=== PATIENT | female | born 1950 | race Caucasian/White ===

== ENCOUNTER 2018-12-27 17:55 | Inpatient (IN) ==
[2018-12-28] MEDS: Aspirin 81 MG TAB.CHEW PO SCH (09:15)
[2018-12-28] MEDS: Gabapentin 300 MG CAPSULE PO SCH ×3 (09:16→20:10)
[2018-12-28] MEDS: Isosorbide MONOnitrate (24 HR) 60 MG TAB.ER.24H PO SCH (09:16)
[2018-12-28] MEDS: Cholecalciferol (D-3) 1,000 UNIT TABLET PO SCH (09:17)
[2018-12-28] MEDS: Magnesium Oxide 400 MG TABLET PO SCH ×2 (09:17→20:10)
[2018-12-28] MEDS: Loratadine 10 MG TABLET PO PRN (09:17)
--- NOTE | 2018-12-28 15:31 | Internal Med History&Physical ---
Date of Encounter: 12/28/18 Time of Encounter: 14:55 Assessment and Plan (1) Coronary artery disease Current visit: No Status: Chronic Continue Lopressor, Plavix, aspirin, and Imdur. Qualifiers: Coronary Disease-Associated Artery/Lesion type: [place] artery [place] vs. transplanted heart: [place] heart Associated angina: angina presence unspecified Qualified Code(s): I25.10 - Atherosclerotic heart disease of [place] coronary artery without angina pectoris (2) Elevated brain natriuretic peptide (BNP) level Current visit: Yes Status: Acute Continue Lopressor and lisinopril. Low-dose Bumex will be added. (3) Hypertension Current visit: No Status: Chronic Continue lisinopril and Lopressor. Blood pressure will be monitored. Qualifiers: Hypertension type: essential hypertension Qualified Code(s): I10 - Essential (primary) hypertension (4) Anemia Current visit: No Status: Chronic Anemia testing will be done in a.m. Qualifiers: Anemia type: unspecified type Qualified Code(s): D64.9 - Anemia, unspecified Internal Medicine - H&P: HPI Chief complaint: Chest pain Admitted From: Hospital to Hospital Transfer Plans for Post Hospital Care: Home History of present illness: Ms. Kelly is a 68 year old female who was transferred to [facility] swing bed after an December 21 hospitalization at [facility] for chest pain. Her medications were adjusted and pain resolved. It was felt she would benefit from ongoing rehabilitation therapy and she was discharged to [facility] swing bed for ongoing care needs. Cardiovascular history is significant for hypertension. She has known ASHD status post SC January 2016. She had heart cath at [facility] 09/08/2018 showing LMCA free of disease, LAD free of disease with patent stent in the proximal LAD, 50% stenosis in the mid circumflex, 25% stenosis in the proximal RCA and 50% stenosis in the distal RCA. She reports 2 stents have been placed but the location a second stent was not documented in the cath report. Limited echocardiogram 12/22/2018 showed LVEF of 60%. Interventricular septum and posterior wall thickness measurements were 1.20 and 1.10 cm respectively. A previous echocardiogram 09/08/2018 showed the interventricular septum and posterior wall thickness measurements 1.20 and 1.40 cm respectively. The E/A ratio was 0.8. Valves were not well visualized. She has history of left leg DVT 20 years ago. She denies pulmonary embolus. She has predictable dyspnea on exertion. Past Med Surg Social Fam HX - Past Medical History Medical history: arthritis, cancer, coronary artery disease, DVT, fibromyalgia, GERD, hyperlipidemia, hypertension, kidney stones, malignancy, migraine, myocardial infarction, seizures Additional medical history: uturine cancer. Left leg DVT. fibromyalgia Psychiatric history: anxiety, depression, panic disorder, PTSD - Past Surgical History Surgical History: angioplasty/stent, cholecystectomy, hip replacement, other Additional surgical history: Left hip replacement right shoulder Surgery - Social History Smoking Status: Former smoker Smokeless Tobacco Status: No Alcohol use: none Drug use: none - Family History Mother Family Member Ethnicity: Non- Living Status: Unknown Hx Family Cardiac Disorders: Yes (SC, CAD) Hx Family Respiratory Disorders: Yes Hx Family Cancer: Yes (Breast CA, uterine CA) Hx Family GI Disorders: No Hx Family Endocrine Disorder: No Hx Family Neuromuscular Disorders: No Hx Family Neurologic Disorders: No Hx Family HEENT Disorders: No Hx Family Autoimmune Disorders: No Father Family Member Ethnicity: Non- Living Status: Unknown Hx Family Cardiac Disorders: Yes (SC, HD, CAD) Hx Family Respiratory Disorders: No Hx Family Cancer: No Hx Family GI Disorders: No Hx Family Endocrine Disorder: No Hx Family Neuromuscular Disorders: No Hx Family Neurologic Disorders: No Hx Family HEENT Disorders: No Hx Family Autoimmune Disorders: No Brother Family Member Ethnicity: Non- Living Status: Still Living Hx Family Cardiac Disorders: Yes (CAD) Internal Medicine - H&P: Meds Buspirone HCl [Buspar] 10 mg PO BID 09/08/18 [History] Cholecalciferol (D-3) [Vitamin D] 2,000 unit PO DAILY 09/08/18 [History] Clopidogrel [Plavix] 75 mg PO DAILY 09/08/18 [History] Gabapentin [Neurontin] 900 mg PO TID 09/08/18 [History] Memantine HCl 5 mg PO DAILY 09/08/18 [History] Aspirin 81 mg PO DAILY #30 tab.chew 09/09/18 [Rx] Atorvastatin Calcium [Lipitor] 40 mg PO HS 11/28/18 [History] Cetirizine HCl [24Hour Allergy] 5 mg PO DAILY PRN 11/28/18 [History] Escitalopram [Lexapro] 20 mg PO DAILY 11/28/18 [History] Lisinopril [Zestril] 5 mg PO DAILY 11/28/18 [History] Magnesium Oxide [Magnesium] 400 mg PO BID 11/28/18 [History] Metoprolol [Lopressor] 12.5 mg PO BID 11/28/18 [History] Pantoprazole Sodium [Protonix] 40 mg PO DAILY 12/23/18 [History] Acetaminophen w/Cod 300-30 mg [Tylenol w/Codeine #3] 1 tab PO TID PRN 4 Days #12 tablet 12/27/18 [Rx] Nitroglycerin 0.4 mg SL Q5M PRN #25 tab.subl 12/27/18 [Rx] Polyethylene Glycol 3350 [MiraLAX] 17 gm PO BID PRN powd.pack 12/27/18 [Rx] Allergy/AdvReac Type Severity Reaction Status Date / Time sumatriptan [From Imitrex] Allergy Swelling Verified 12/23/18 14:55 of Lip/Tongue/Throat venom-honey bee Allergy Swelling Verified 12/23/18 14:55 [bee venom (honey bee)] of Lip/Tongue/Throat morphine AdvReac Nausea Verified 12/23/18 14:55 All Systems PM: A 10-system review of systems was performed and is negative for pertinent findings except as documented above in the HPI. Review of systems: Gen.: She states her weight has been stable for several months Cardiovascular: As per history of present illness Respiratory: She smoked for approximately 3 years in early adulthood. She denies chronic lung disease and does not use home oxygen. She has not been tested for sleep apnea. GI: She has had cholecystectomy. She denies disorders of her liver or exocrine pancreas : She has history of multiple kidney stones with most recent one approximately February 2016. She denies other kidney or bladder disorders. Neurologic: She has history of migraine headaches. She denies large distribution strokes or seizures. Endocrine: She has history of hyperlipidemia. She denies diabetes or thyroid disease. Hematology/oncology: She has history of cervical cancer with curative hysterectomy several years ago. She denies other internal malignancies. She was unaware she has had anemia on most labs since November 2014. Psychiatric: She has anxiety, depression, and PTSD. [place]: She has fibromyalgia and DJD. 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 She denies gout or other bone joint or muscle disorders. - Constitutional Vitals: Temp Pulse Resp BP Pulse Ox 98.3 F 71 18 121/74 96 12/28/18 06:40 12/28/18 06:40 12/28/18 06:40 12/28/18 06:40 12/28/18 06:40 Exam: Gen.: She is a well-developed overweight female sitting in a chair at bedside who appears in no acute distress HEENT: Head is atraumatic and normocephalic. Eyes: EOMI. There is no scleral icterus. Mouth: Mucosa is moist. Neck: Supple and nontender. There is no thyromegaly or adenopathy noted. Heart: Regular without murmurs gallops or ectopics Lungs: No wheezes or crackles are heard. Abdomen: Soft and nontender. No masses or guarding are noted. Extremities: There is no cyanosis edema or clubbing noted. Dorsalis pedis and posterior tibial pulses are 1-2 over 2 bilaterally. Neurologic: Mental status: She is talkative and a good historian. Cranial nerves: Smile is symmetric. Forehead wrinkles bilaterally. Tongue protrudes midline. EOMI. Motor: There is no pronator drift. Cerebellar: Finger to nose is intact bilaterally. Skin: Warm and dry
[2018-12-29 05:25] LABS: Basophils % 0.5 %; Eosinophils # 0.2 K/mcL (0.0-0.6); Eosinophils % 2.7 %; Hemoglobin 10.7 g/dL (11.5-15.4); Immature Granulocytes % 0.5 % (0-4); Lymphocytes # 2.1 K/mcL (0.6-4.6); Lymphocytes % 33.3 %; Mean Corpuscular HGB Conc 30.6 g/dL (31.6-35.5); Mean Corpuscular Hemoglobin 28.7 pg (28.0-33.3); Mean Corpuscular Volume 93.8 fL (83.0-100.0); Mean Platelet Volume 10.4 fL (9.4-12.4); Monocytes # 0.5 K/mcL (0.0-1.3); Monocytes % 8.2 %; Neutrophils # 3.4 K/mcL (1.6-8.9); Platelet Count 246 K/mcL (140-400); Red Blood Count 3.73 M/mcL (3.82-4.97); Red Cell Distribution Width 14.2 % (11.5-14.5); Segmented Neutrophils % 54.8 %
[2018-12-29 05:44] LABS: BUN/Creatinine Ratio 28 (6-26); Blood Urea Nitrogen 26 mg/dL (8-23); Calcium 9.1 mg/dL (8.6-10.3); Carbon Dioxide 31 mEq/L (23-29); Chloride 103 mEq/L (98-107); Glucose 102 mg/dL (70-105); Osmolality,Calculated 293 (280-300); Sodium 139 mEq/L (136-145); eGFR For Non-African Americans > 60 (> 60)
[2018-12-29] MEDS: Isosorbide MONOnitrate (24 HR) 60 MG TAB.ER.24H PO SCH (08:24)
[2018-12-29] MEDS: Magnesium Oxide 400 MG TABLET PO SCH ×2 (08:24→20:26)
[2018-12-29] MEDS: Aspirin 81 MG TAB.CHEW PO SCH (08:24)
[2018-12-29] MEDS: Gabapentin 300 MG CAPSULE PO SCH ×3 (08:25→20:26)
[2018-12-29] MEDS: Cholecalciferol (D-3) 1,000 UNIT TABLET PO SCH (08:25)
[2018-12-29 09:24] LABS: % Iron Saturation 17 % (15-50); Iron 63 mcg/dL (50-170); Transferrin 261 mg/dL (203-362)
[2018-12-29 09:29] LABS: Ferritin 42 ng/mL (10-120)
--- NOTE | 2018-12-29 17:39 | Internal Med Progress Note ---
Date of Encounter: 12/29/18 Time of Encounter: 17:30 - Assessment and plan (1) Coronary artery disease Current Visit: No Status: Chronic Assessment and plan: December 29. Continue Lopressor, Plavix, aspirin, and Imdur. Qualifiers: Coronary Disease-Associated Artery/Lesion type: [place] artery [place] vs. transplanted heart: [place] heart Associated angina: angina presence unspecified Qualified Code(s): I25.10 - Atherosclerotic heart disease of [place] coronary artery without angina pectoris (2) Elevated brain natriuretic peptide (BNP) level Current Visit: Yes Status: Acute Assessment and plan: December 29. Continue Lopressor and lisinopril with low dose Bumex. (3) Hypertension Current Visit: No Status: Chronic Assessment and plan: December 29. Continue lisinopril and Lopressor. Qualifiers: Hypertension type: essential hypertension Qualified Code(s): I10 - Essential (primary) hypertension (4) Anemia Current Visit: No Status: Chronic Assessment and plan: December 29. Anemia testing showed iron 63, transferrin saturation 17%, transferrin 261, ferritin 42, B12 419, and folate 5.0. Hemoglobin has improved to 10.7. Continue to monitor. Qualifiers: Anemia type: unspecified type Qualified Code(s): D64.9 - Anemia, unspecified - Subjective Interval history: December 29. She has no new complaints and feels better. She states she had 2 therapy sessions today and became dyspneic with activity. - Constitutional Vitals: Temp Pulse Resp BP Pulse Ox 98.2 F 71 16 114/70 96 12/29/18 06:26 12/29/18 06:26 12/29/18 06:26 12/29/18 06:26 12/29/18 06:26 Exam: She is resting comfortably in bed and appears in no acute distress. Her affect is bright and cheerful. Extremities show no pitting edema. I reviewed her medications and lab results. Internal Medicine: Result - Labs CBC & Chem 7: 12/29/18 05:00 12/29/18 05:00 Labs: Short CBC 12/29/18 Range/Units 05:00 WBC 6.3 (4.3-11.1) K/mcL Hgb 10.7 L (11.5-15.4) g/dL Hct 35.0 L (35.3-44.9) % Plt Count 246 (140-400) K/mcL Neutrophils # 3.4 (1.6-8.9) K/mcL BMP 12/29/18 05:00 Sodium 139 Potassium 5.0 Chloride 103 Carbon Dioxide 31 H BUN 26 H Creatinine 0.92 Glucose 102 Calcium 9.1 Consult Discharge Plan - Plan Referrals: NONE,PCP [Primary Care Provider] - 1 week
[2018-12-29] MEDS: Bumetanide 1 MG TABLET PO SCH (17:58)
[2018-12-30] MEDS: Aspirin 81 MG TAB.CHEW PO SCH (09:22)
[2018-12-30] MEDS: Magnesium Oxide 400 MG TABLET PO SCH ×2 (09:22→20:43)
[2018-12-30] MEDS: Bumetanide 1 MG TABLET PO SCH (09:22)
[2018-12-30] MEDS: Isosorbide MONOnitrate (24 HR) 60 MG TAB.ER.24H PO SCH (09:22)
[2018-12-30] MEDS: Cholecalciferol (D-3) 1,000 UNIT TABLET PO SCH (09:23)
[2018-12-30] MEDS: Gabapentin 300 MG CAPSULE PO SCH ×3 (09:24→20:43)
[2018-12-30] MEDS: *HR* Acetaminophen w/Cod 300-30 mg 1 TAB TABLET PO PRN (17:46)
[2018-12-31] MEDS: *HR* Acetaminophen w/Cod 300-30 mg 1 TAB TABLET PO PRN ×2 (05:24→15:04)
[2018-12-31] MEDS: Gabapentin 300 MG CAPSULE PO SCH ×3 (08:41→20:13)
[2018-12-31] MEDS: Cholecalciferol (D-3) 1,000 UNIT TABLET PO SCH (08:41)
[2018-12-31] MEDS: Aspirin 81 MG TAB.CHEW PO SCH (08:42)
[2018-12-31] MEDS: Magnesium Oxide 400 MG TABLET PO SCH ×2 (08:42→20:13)
[2018-12-31] MEDS: Loratadine 10 MG TABLET PO PRN (08:43)
[2018-12-31] MEDS: Bumetanide 1 MG TABLET PO SCH (08:44)
[2018-12-31] MEDS: Isosorbide MONOnitrate (24 HR) 60 MG TAB.ER.24H PO SCH (08:45)
--- NOTE | 2018-12-31 12:42 | Internal Med Progress Note ---
Date of Encounter: 12/31/18 Time of Encounter: 12:35 - Assessment and plan (1) Coronary artery disease Current Visit: No Status: Chronic Assessment and plan: December 29. Continue Lopressor, Plavix, aspirin, and Imdur. Qualifiers: Coronary Disease-Associated Artery/Lesion type: [place] artery [place] vs. transplanted heart: [place] heart Associated angina: angina presence unspecified Qualified Code(s): I25.10 - Atherosclerotic heart disease of [place] coronary artery without angina pectoris (2) Elevated brain natriuretic peptide (BNP) level Current Visit: Yes Status: Acute Assessment and plan: December 29. Continue Lopressor and lisinopril with low dose Bumex. December 31. BN peptide was normal at 93 on 12/29/2018. Continue Lopressor, lisinopril, and Bumex (3) Hypertension Current Visit: No Status: Chronic Assessment and plan: December 29. Continue lisinopril and Lopressor. December 31. Blood pressure borderline low. Change metoprolol to Toprol-XL 12.5 mg daily. Qualifiers: Hypertension type: essential hypertension Qualified Code(s): I10 - Essential (primary) hypertension (4) Anemia Current Visit: No Status: Chronic Assessment and plan: December 29. Anemia testing showed iron 63, transferrin saturation 17%, transferrin 261, ferritin 42, B12 419, and folate 5.0. Hemoglobin has improved to 10.7. Continue to monitor. Qualifiers: Anemia type: unspecified type Qualified Code(s): D64.9 - Anemia, unspecified (5) Obesity Current Visit: No Status: Chronic Assessment and plan: December 31. She requested a visit by the dietitian. Qualifiers: Obesity type: due to excess calories Obesity classification: adult class 3 (BMI >= 40) Serious obesity comorbidity presence: with serious comorbidity Body mass index: BMI 45.0-49.9 Qualified Code(s): E66.01 - Morbid (severe) obesity due to excess calories; Z68.42 - Body mass index (BMI) 45.0-49.9, adult - Subjective Interval history: December 29. She has no new complaints and feels better. She states she had 2 therapy sessions today and became dyspneic with activity. December 31. She has no new complaints. - Constitutional Vitals: Temp Pulse Resp BP Pulse Ox 98.6 F 69 18 96/56 95 12/31/18 07:51 12/31/18 08:54 12/31/18 08:54 12/31/18 08:54 12/31/18 07:51 Exam: She is resting comfortably in bed and appears in no acute distress. Her affect is bright and cheerful. Extremities show no edema. I reviewed her medications and lab results. Internal Medicine: Result - Labs CBC & Chem 7: 12/29/18 05:00 12/29/18 05:00 Consult Discharge Plan - Plan Referrals: NONE,PCP [Primary Care Provider] - 1 week
[2019-01-01] MEDS: *HR* Acetaminophen w/Cod 300-30 mg 1 TAB TABLET PO PRN ×2 (05:15→14:29)
[2019-01-01] MEDS: Isosorbide MONOnitrate (24 HR) 60 MG TAB.ER.24H PO SCH (08:16)
[2019-01-01] MEDS: Magnesium Oxide 400 MG TABLET PO SCH ×2 (08:16→21:19)
[2019-01-01] MEDS: Aspirin 81 MG TAB.CHEW PO SCH (08:17)
[2019-01-01] MEDS: Bumetanide 1 MG TABLET PO SCH (08:17)
[2019-01-01] MEDS: Metoprolol XL (24 HR) Succ 25 MG TAB.ER.24H PO SCH (08:17)
[2019-01-01] MEDS: Gabapentin 300 MG CAPSULE PO SCH ×3 (08:18→21:19)
[2019-01-01] MEDS: Cholecalciferol (D-3) 1,000 UNIT TABLET PO SCH (08:18)
[2019-01-02] MEDS: *HR* Acetaminophen w/Cod 300-30 mg 1 TAB TABLET PO PRN ×2 (07:32→17:53)
[2019-01-02] MEDS: Bumetanide 1 MG TABLET PO SCH (08:47)
[2019-01-02] MEDS: Magnesium Oxide 400 MG TABLET PO SCH ×2 (08:47→21:13)
[2019-01-02] MEDS: Cholecalciferol (D-3) 1,000 UNIT TABLET PO SCH (08:47)
[2019-01-02] MEDS: Aspirin 81 MG TAB.CHEW PO SCH (08:48)
[2019-01-02] MEDS: Metoprolol XL (24 HR) Succ 25 MG TAB.ER.24H PO SCH (08:48)
[2019-01-02] MEDS: Gabapentin 300 MG CAPSULE PO SCH ×3 (08:48→21:13)
[2019-01-02] MEDS: Isosorbide MONOnitrate (24 HR) 60 MG TAB.ER.24H PO SCH (08:48)
[2019-01-03 05:56] LABS: Basophils % 0.5 %; Eosinophils # 0.2 K/mcL (0.0-0.6); Eosinophils % 2.4 %; Hematocrit 36.4 % (35.3-44.9); Hemoglobin 11.1 g/dL (11.5-15.4); Immature Granulocytes % 0.3 % (0-4); Lymphocytes # 2.1 K/mcL (0.6-4.6); Lymphocytes % 33.8 %; Mean Corpuscular HGB Conc 30.5 g/dL (31.6-35.5); Mean Corpuscular Hemoglobin 28.4 pg (28.0-33.3); Mean Corpuscular Volume 93.1 fL (83.0-100.0); Mean Platelet Volume 10.5 fL (9.4-12.4); Monocytes # 0.6 K/mcL (0.0-1.3); Monocytes % 8.7 %; Neutrophils # 3.5 K/mcL (1.6-8.9); Platelet Count 240 K/mcL (140-400); Red Blood Count 3.91 M/mcL (3.82-4.97); Red Cell Distribution Width 14.3 % (11.5-14.5); Segmented Neutrophils % 54.3 %
[2019-01-03 06:18] LABS: BUN/Creatinine Ratio 42 (6-26); Blood Urea Nitrogen 38 mg/dL (8-23); Carbon Dioxide 27 mEq/L (23-29); Chloride 106 mEq/L (98-107); Glucose 113 mg/dL (70-105); Magnesium 2.2 mg/dL (1.6-2.6); Osmolality,Calculated 300 (280-300); Potassium 4.4 mEq/L (3.5-5.1); Sodium 140 mEq/L (136-145); eGFR For Non-African Americans > 60 (> 60)
[2019-01-03] MEDS: Magnesium Oxide 400 MG TABLET PO SCH ×2 (08:30→20:24)
[2019-01-03] MEDS: Isosorbide MONOnitrate (24 HR) 60 MG TAB.ER.24H PO SCH (08:30)
[2019-01-03] MEDS: *HR* Acetaminophen w/Cod 300-30 mg 1 TAB TABLET PO PRN ×3 (08:30→20:24)
[2019-01-03] MEDS: Gabapentin 300 MG CAPSULE PO SCH ×3 (08:32→20:24)
[2019-01-03] MEDS: Metoprolol XL (24 HR) Succ 25 MG TAB.ER.24H PO SCH (08:32)
[2019-01-03] MEDS: Bumetanide 1 MG TABLET PO SCH (08:32)
[2019-01-03] MEDS: Aspirin 81 MG TAB.CHEW PO SCH (08:34)
[2019-01-03] MEDS: Cholecalciferol (D-3) 1,000 UNIT TABLET PO SCH (08:34)
[2019-01-03] MEDS ORDERED: MOM Conc 10 ML UD.LIQ PO PRN (14:06)
--- NOTE | 2019-01-03 15:38 | Internal Med Progress Note ---
Date of Encounter: 01/03/19 Time of Encounter: 15:30 - Assessment and plan (1) Coronary artery disease Current Visit: No Status: Chronic Assessment and plan: December 29. Continue Lopressor, Plavix, aspirin, and Imdur. Qualifiers: Coronary Disease-Associated Artery/Lesion type: [place] artery [place] vs. transplanted heart: [place] heart Associated angina: angina presence unspecified Qualified Code(s): I25.10 - Atherosclerotic heart disease of [place] coronary artery without angina pectoris (2) Elevated brain natriuretic peptide (BNP) level Current Visit: Yes Status: Acute Assessment and plan: December 29. Continue Lopressor and lisinopril with low dose Bumex. December 31. BN peptide was normal at 93 on 12/29/2018. Continue Lopressor, lisinopril, and Bumex (3) Hypertension Current Visit: No Status: Chronic Assessment and plan: December 29. Continue lisinopril and Lopressor. December 31. Blood pressure borderline low. Change metoprolol to Toprol-XL 12.5 mg daily. January 03. Blood pressure stable. Continue Toprol-XL 12.5 mg daily. Qualifiers: Hypertension type: essential hypertension Qualified Code(s): I10 - Essential (primary) hypertension (4) Anemia Current Visit: No Status: Chronic Assessment and plan: December 29. Anemia testing showed iron 63, transferrin saturation 17%, transferrin 261, ferritin 42, B12 419, and folate 5.0. Hemoglobin has improved to 10.7. Continue to monitor. January 03. Hemoglobin further increased to 11.1. Continue to monitor [place] odically. Qualifiers: Anemia type: unspecified type Qualified Code(s): D64.9 - Anemia, unspecified (5) Obesity Current Visit: No Status: Chronic Assessment and plan: December 31. She requested a visit by the dietitian. Qualifiers: Obesity type: due to excess calories Obesity classification: adult class 3 (BMI >= 40) Serious obesity comorbidity presence: with serious comorbidity Body mass index: BMI 45.0-49.9 Qualified Code(s): E66.01 - Morbid (severe) obesity due to excess calories; Z68.42 - Body mass index (BMI) 45.0-49.9, adult - Subjective Interval history: December 29. She has no new complaints and feels better. She states she had 2 therapy sessions today and became dyspneic with activity. December 31. She has no new complaints. January 03. She has no new complaints and feels she is making progress. - Constitutional Vitals: Temp Pulse Resp BP Pulse Ox 97.9 F 67 18 131/84 94 01/03/19 08:31 01/03/19 08:31 01/03/19 08:31 01/03/19 08:31 01/03/19 08:31 Exam: She is resting comfortably in bed and appears in no acute distress. Her affect is bright and cheerful. I reviewed her medications and lab results. Internal Medicine: Result - Labs CBC & Chem 7: 01/03/19 05:37 01/03/19 05:37 Labs: Short CBC 01/03/19 Range/Units 05:37 WBC 6.3 (4.3-11.1) K/mcL Hgb 11.1 L (11.5-15.4) g/dL Hct 36.4 (35.3-44.9) % Plt Count 240 (140-400) K/mcL Neutrophils # 3.5 (1.6-8.9) K/mcL BMP 01/03/19 05:37 Sodium 140 Potassium 4.4 Chloride 106 Carbon Dioxide 27 BUN 38 H Creatinine 0.90 Glucose 113 H Calcium 9.0 Consult Discharge Plan - Plan Referrals: NONE,PCP [Primary Care Provider] - 1 week
[2019-01-03] MEDS: Acetaminophen/Butalbital/CaffeineTABLET PO PRN (16:04)
[2019-01-04] MEDS: Cholecalciferol (D-3) 1,000 UNIT TABLET PO SCH (08:04)
[2019-01-04] MEDS: Gabapentin 300 MG CAPSULE PO SCH ×3 (08:05→21:30)
[2019-01-04] MEDS: Bumetanide 1 MG TABLET PO SCH (08:05)
[2019-01-04] MEDS: Aspirin 81 MG TAB.CHEW PO SCH (08:06)
[2019-01-04] MEDS: *HR* Acetaminophen w/Cod 300-30 mg 1 TAB TABLET PO PRN ×3 (08:06→21:31)
[2019-01-04] MEDS: Isosorbide MONOnitrate (24 HR) 60 MG TAB.ER.24H PO SCH (08:07)
[2019-01-04] MEDS: Magnesium Oxide 400 MG TABLET PO SCH ×2 (08:07→21:30)
[2019-01-04] MEDS: Loratadine 10 MG TABLET PO PRN (08:07)
[2019-01-04] MEDS: Metoprolol XL (24 HR) Succ 25 MG TAB.ER.24H PO SCH (08:07)
[2019-01-04] MEDS: Acetaminophen/Butalbital/CaffeineTABLET PO PRN ×2 (08:12→15:04)
[2019-01-04] MEDS: ALPRAZolam 0.25 MG TABLET PO PRN (16:29)
[2019-01-05] MEDS: *HR* Acetaminophen w/Cod 300-30 mg 1 TAB TABLET PO PRN ×3 (05:54→21:02)
[2019-01-05] MEDS: Acetaminophen/Butalbital/CaffeineTABLET PO PRN ×3 (05:54→21:01)
[2019-01-05] MEDS: ALPRAZolam 0.25 MG TABLET PO PRN ×3 (05:55→21:02)
[2019-01-05] MEDS: Isosorbide MONOnitrate (24 HR) 60 MG TAB.ER.24H PO SCH (09:55)
[2019-01-05] MEDS: Cholecalciferol (D-3) 1,000 UNIT TABLET PO SCH (09:55)
[2019-01-05] MEDS: Aspirin 81 MG TAB.CHEW PO SCH (09:55)
[2019-01-05] MEDS: Metoprolol XL (24 HR) Succ 25 MG TAB.ER.24H PO SCH (09:55)
[2019-01-05] MEDS: Gabapentin 300 MG CAPSULE PO SCH ×3 (09:56→21:02)
[2019-01-05] MEDS: Magnesium Oxide 400 MG TABLET PO SCH ×2 (09:56→21:02)
[2019-01-05] MEDS: Bumetanide 1 MG TABLET PO SCH (09:56)
[2019-01-06] MEDS: Gabapentin 300 MG CAPSULE PO SCH ×3 (08:44→20:39)
[2019-01-06] MEDS: Bumetanide 1 MG TABLET PO SCH (08:44)
[2019-01-06] MEDS: ALPRAZolam 0.25 MG TABLET PO PRN ×3 (08:44→21:59)
[2019-01-06] MEDS: Acetaminophen/Butalbital/CaffeineTABLET PO PRN ×3 (08:44→21:59)
[2019-01-06] MEDS: *HR* Acetaminophen w/Cod 300-30 mg 1 TAB TABLET PO PRN ×3 (08:45→21:59)
[2019-01-06] MEDS: Aspirin 81 MG TAB.CHEW PO SCH (08:45)
[2019-01-06] MEDS: Cholecalciferol (D-3) 1,000 UNIT TABLET PO SCH (08:45)
[2019-01-06] MEDS: Magnesium Oxide 400 MG TABLET PO SCH ×2 (08:45→20:40)
[2019-01-06] MEDS: Metoprolol XL (24 HR) Succ 25 MG TAB.ER.24H PO SCH (08:45)
[2019-01-06] MEDS: Isosorbide MONOnitrate (24 HR) 60 MG TAB.ER.24H PO SCH (08:45)
--- NOTE | 2019-01-06 15:25 | Internal Med Progress Note ---
Date of Encounter: 01/06/19 Time of Encounter: 15:18 - Assessment and plan (1) Coronary artery disease Current Visit: No Status: Chronic Assessment and plan: December 29. Continue Lopressor, Plavix, aspirin, and Imdur. Qualifiers: Coronary Disease-Associated Artery/Lesion type: [place] artery [place] vs. transplanted heart: [place] heart Associated angina: angina presence unspecified Qualified Code(s): I25.10 - Atherosclerotic heart disease of [place] coronary artery without angina pectoris (2) Elevated brain natriuretic peptide (BNP) level Current Visit: Yes Status: Acute Assessment and plan: December 29. Continue Lopressor and lisinopril with low dose Bumex. December 31. BN peptide was normal at 93 on 12/29/2018. Continue Lopressor, lisinopril, and Bumex (3) Hypertension Current Visit: No Status: Chronic Assessment and plan: December 29. Continue lisinopril and Lopressor. December 31. Blood pressure borderline low. Change metoprolol to Toprol-XL 12.5 mg daily. January 03. Blood pressure stable. Continue Toprol-XL 12.5 mg daily. Qualifiers: Hypertension type: essential hypertension Qualified Code(s): I10 - Essential (primary) hypertension (4) Anemia Current Visit: No Status: Chronic Assessment and plan: December 29. Anemia testing showed iron 63, transferrin saturation 17%, transferrin 261, ferritin 42, B12 419, and folate 5.0. Hemoglobin has improved to 10.7. Continue to monitor. January 03. Hemoglobin further increased to 11.1. Continue to monitor [place] odically. Qualifiers: Anemia type: unspecified type Qualified Code(s): D64.9 - Anemia, unspecified (5) Obesity Current Visit: No Status: Chronic Assessment and plan: December 31. She requested a visit by the dietitian. Qualifiers: Obesity type: due to excess calories Obesity classification: adult class 3 (BMI >= 40) Serious obesity comorbidity presence: with serious comorbidity Body mass index: BMI 45.0-49.9 Qualified Code(s): E66.01 - Morbid (severe) obesity due to excess calories; Z68.42 - Body mass index (BMI) 45.0-49.9, adult - Subjective Interval history: December 29. She has no new complaints and feels better. She states she had 2 therapy sessions today and became dyspneic with activity. December 31. She has no new complaints. January 03. She has no new complaints and feels she is making progress. January 06. She has no new complaints. - Constitutional Vitals: Temp Pulse Resp BP Pulse Ox 98.5 F 66 16 104/64 96 01/06/19 06:35 01/06/19 06:35 01/06/19 06:35 01/06/19 06:35 01/06/19 06:35 Exam: She is resting comfortably in bed and appears in no acute distress. Her affect is bright and cheerful. I reviewed her medications and lab results. Internal Medicine: Result - Labs CBC & Chem 7: 01/03/19 05:37 01/03/19 05:37 Consult Discharge Plan - Plan Referrals: NONE,PCP [Primary Care Provider] - 1 week
[2019-01-06] MEDS: Loratadine 10 MG TABLET PO PRN (16:49)
[2019-01-07] MEDS: ALPRAZolam 0.25 MG TABLET PO PRN ×3 (06:44→20:59)
[2019-01-07] MEDS: Acetaminophen/Butalbital/CaffeineTABLET PO PRN ×3 (06:45→20:59)
[2019-01-07] MEDS: Bumetanide 1 MG TABLET PO SCH (10:31)
[2019-01-07] MEDS: Gabapentin 300 MG CAPSULE PO SCH ×3 (10:31→20:59)
[2019-01-07] MEDS: Cholecalciferol (D-3) 1,000 UNIT TABLET PO SCH (10:31)
[2019-01-07] MEDS: Isosorbide MONOnitrate (24 HR) 60 MG TAB.ER.24H PO SCH (10:31)
[2019-01-07] MEDS: Metoprolol XL (24 HR) Succ 25 MG TAB.ER.24H PO SCH (10:32)
[2019-01-07] MEDS: Aspirin 81 MG TAB.CHEW PO SCH (10:32)
[2019-01-07] MEDS: Magnesium Oxide 400 MG TABLET PO SCH ×2 (10:32→20:59)
[2019-01-07] MEDS: *HR* Acetaminophen w/Cod 300-30 mg 1 TAB TABLET PO PRN ×2 (13:47→21:00)
[2019-01-08] MEDS: *HR* Acetaminophen w/Cod 300-30 mg 1 TAB TABLET PO PRN ×2 (09:14→21:40)
[2019-01-08] MEDS: ALPRAZolam 0.25 MG TABLET PO PRN ×2 (09:14→21:39)
[2019-01-08] MEDS: Metoprolol XL (24 HR) Succ 25 MG TAB.ER.24H PO SCH (09:15)
[2019-01-08] MEDS: Acetaminophen/Butalbital/CaffeineTABLET PO PRN ×2 (09:15→21:39)
[2019-01-08] MEDS: Bumetanide 1 MG TABLET PO SCH (09:16)
[2019-01-08] MEDS: Gabapentin 300 MG CAPSULE PO SCH ×3 (09:16→21:38)
[2019-01-08] MEDS: Aspirin 81 MG TAB.CHEW PO SCH (09:16)
[2019-01-08] MEDS: Magnesium Oxide 400 MG TABLET PO SCH ×2 (09:16→21:39)
[2019-01-08] MEDS: Isosorbide MONOnitrate (24 HR) 60 MG TAB.ER.24H PO SCH (09:16)
[2019-01-08] MEDS: Cholecalciferol (D-3) 1,000 UNIT TABLET PO SCH (09:17)
[2019-01-09] MEDS: Cholecalciferol (D-3) 1,000 UNIT TABLET PO SCH (08:21)
[2019-01-09] MEDS: ALPRAZolam 0.25 MG TABLET PO PRN ×3 (08:22→22:42)
[2019-01-09] MEDS: Magnesium Oxide 400 MG TABLET PO SCH ×2 (08:22→21:20)
[2019-01-09] MEDS: Gabapentin 300 MG CAPSULE PO SCH ×3 (08:22→21:19)
[2019-01-09] MEDS: Aspirin 81 MG TAB.CHEW PO SCH (08:23)
[2019-01-09] MEDS: Acetaminophen/Butalbital/CaffeineTABLET PO PRN ×2 (08:23→22:42)
[2019-01-09] MEDS: Isosorbide MONOnitrate (24 HR) 60 MG TAB.ER.24H PO SCH (08:24)
[2019-01-09] MEDS: Loratadine 10 MG TABLET PO PRN (08:24)
[2019-01-09] MEDS: *HR* Acetaminophen w/Cod 300-30 mg 1 TAB TABLET PO PRN ×3 (08:24→21:19)
[2019-01-09] MEDS: Bumetanide 1 MG TABLET PO SCH (08:25)
[2019-01-09] MEDS: Metoprolol XL (24 HR) Succ 25 MG TAB.ER.24H PO SCH (08:25)
--- NOTE | 2019-01-09 15:22 | Internal Med Progress Note ---
Date of Encounter: 01/09/19 Time of Encounter: 15:15 - Assessment and plan (1) Coronary artery disease Current Visit: No Status: Chronic Assessment and plan: December 29. Continue Lopressor, Plavix, aspirin, and Imdur. Qualifiers: Coronary Disease-Associated Artery/Lesion type: [place] artery [place] vs. transplanted heart: [place] Associated angina: angina presence unspecified Qualified Code(s): I25.10 - Atherosclerotic heart disease of [place] artery without angina pectoris (2) Elevated brain natriuretic peptide (BNP) level Current Visit: Yes Status: Acute Assessment and plan: December 29. Continue Lopressor and lisinopril with low dose Bumex. December 31. BN peptide was normal at 93 on 12/29/2018. Continue Lopressor, lisinopril, and Bumex January 09. Discontinue lisinopril due to borderline hypotension. Continue Lopressor and Bumex. (3) Hypertension Current Visit: No Status: Chronic Assessment and plan: December 29. Continue lisinopril and Lopressor. December 31. Blood pressure borderline low. Change metoprolol to Toprol-XL 12.5 mg daily. January 03. Blood pressure stable. Continue Toprol-XL 12.5 mg daily. January 09. Blood pressure borderline low. Continue Toprol. Discontinue lisinopril. Qualifiers: Hypertension type: essential hypertension Qualified Code(s): I10 - Essential (primary) hypertension (4) Anemia Current Visit: No Status: Chronic Assessment and plan: December 29. Anemia testing showed iron 63, transferrin saturation 17%, tra nsferrin 261, ferritin 42, B12 419, and folate 5.0. Hemoglobin has improved to 10.7. Continue to monitor. January 03. Hemoglobin further increased to 11.1. Continue to monitor periodically. Qualifiers: Anemia type: unspecified type Qualified Code(s): D64.9 - Anemia, unspecified (5) Obesity Current Visit: No Status: Chronic Assessment and plan: December 31. She requested a visit by the dietitian. Qualifiers: Obesity type: due to excess calories Obesity classification: adult class 3 (BMI >= 40) Serious obesity comorbidity presence: with serious comorbidity Body mass index: BMI 45.0-49.9 Qualified Code(s): E66.01 - Morbid (severe) obesity due to excess calories; Z68.42 - Body mass index (BMI) 45.0-49.9, adult - Subjective Interval history: December 29. She has no new complaints and feels better. She states she had 2 therapy sessions today and became dyspneic with activity. December 31. She has no new complaints. January 03. She has no new complaints and feels she is making progress. January 06. She has no new complaints. January 09. She has no new complaints. - Constitutional Vitals: Temp Pulse Resp BP Pulse Ox 97.7 F 66 16 97/50 96 01/09/19 06:36 01/09/19 06:36 01/09/19 06:36 01/09/19 06:36 01/09/19 06:36 Exam: She is sitting in the exercise gym and appears in no acute distress. Her affect is overall cheerful. I reviewed her medications and lab results. Internal Medicine: Result - Labs CBC & Chem 7: 01/03/19 05:37 01/03/19 05:37 Consult Discharge Plan - Plan Referrals: NONE,PCP [Primary Care Provider] - 1 week
[2019-01-09] MEDS ORDERED: Methyl Salicylate/Menthol 28 GM TUBE TP PRN (15:54)
[2019-01-10 06:24] LABS: Basophils % 0.5 %; Eosinophils # 0.2 K/mcL (0.0-0.6); Eosinophils % 3.8 %; Hematocrit 33.3 % (35.3-44.9); Hemoglobin 10.3 g/dL (11.5-15.4); Immature Granulocytes % 0.2 % (0-4); Lymphocytes # 2.8 K/mcL (0.6-4.6); Lymphocytes % 45.7 %; Mean Corpuscular HGB Conc 30.9 g/dL (31.6-35.5); Mean Corpuscular Hemoglobin 28.4 pg (28.0-33.3); Mean Corpuscular Volume 91.7 fL (83.0-100.0); Mean Platelet Volume 10.7 fL (9.4-12.4); Monocytes # 0.5 K/mcL (0.0-1.3); Monocytes % 7.7 %; Neutrophils # 2.6 K/mcL (1.6-8.9); Platelet Count 252 K/mcL (140-400); Red Blood Count 3.63 M/mcL (3.82-4.97); Red Cell Distribution Width 14.7 % (11.5-14.5); Segmented Neutrophils % 42.1 %
[2019-01-10 06:43] LABS: BUN/Creatinine Ratio 29 (6-26); Blood Urea Nitrogen 25 mg/dL (8-23); Calcium 8.8 mg/dL (8.6-10.3); Carbon Dioxide 27 mEq/L (23-29); Chloride 108 mEq/L (98-107); Glucose 97 mg/dL (70-105); Magnesium 2.2 mg/dL (1.6-2.6); Osmolality,Calculated 296 (280-300); Potassium 4.3 mEq/L (3.5-5.1); Sodium 141 mEq/L (136-145); eGFR For Non-African Americans > 60 (> 60)
[2019-01-10] MEDS: Acetaminophen/Butalbital/CaffeineTABLET PO PRN ×3 (08:23→22:04)
[2019-01-10] MEDS: Metoprolol XL (24 HR) Succ 25 MG TAB.ER.24H PO SCH (08:24)
[2019-01-10] MEDS: Magnesium Oxide 400 MG TABLET PO SCH ×2 (08:24→22:05)
[2019-01-10] MEDS: *HR* Acetaminophen w/Cod 300-30 mg 1 TAB TABLET PO PRN ×3 (08:24→18:20)
[2019-01-10] MEDS: Isosorbide MONOnitrate (24 HR) 60 MG TAB.ER.24H PO SCH (08:24)
[2019-01-10] MEDS: Bumetanide 1 MG TABLET PO SCH (08:24)
[2019-01-10] MEDS: Gabapentin 300 MG CAPSULE PO SCH ×3 (08:25→22:04)
[2019-01-10] MEDS: Cholecalciferol (D-3) 1,000 UNIT TABLET PO SCH (08:25)
[2019-01-10] MEDS: Aspirin 81 MG TAB.CHEW PO SCH (08:26)
[2019-01-10] MEDS ORDERED: Ondansetron ODT 4 MG TAB.RAPDIS SL PRN (09:49)
[2019-01-10] MEDS: ALPRAZolam 0.25 MG TABLET PO PRN ×2 (15:27→22:04)
[2019-01-11] MEDS: ALPRAZolam 0.25 MG TABLET PO PRN ×3 (09:07→21:01)
[2019-01-11] MEDS: Aspirin 81 MG TAB.CHEW PO SCH (09:08)
[2019-01-11] MEDS: Isosorbide MONOnitrate (24 HR) 60 MG TAB.ER.24H PO SCH (09:08)
[2019-01-11] MEDS: Bumetanide 1 MG TABLET PO SCH (09:08)
[2019-01-11] MEDS: *HR* Acetaminophen w/Cod 300-30 mg 1 TAB TABLET PO PRN ×3 (09:08→21:03)
[2019-01-11] MEDS: Magnesium Oxide 400 MG TABLET PO SCH ×2 (09:08→21:01)
[2019-01-11] MEDS: Acetaminophen/Butalbital/CaffeineTABLET PO PRN ×3 (09:08→21:01)
[2019-01-11] MEDS: Cholecalciferol (D-3) 1,000 UNIT TABLET PO SCH (09:09)
[2019-01-11] MEDS: Gabapentin 300 MG CAPSULE PO SCH ×3 (09:09→21:01)
[2019-01-11] MEDS: Metoprolol XL (24 HR) Succ 25 MG TAB.ER.24H PO SCH (09:10)
[2019-01-12 07:33] VITALS: BP 105/57
--- NOTE | 2019-01-12 09:11 | Discharge Summary ---
Date of Encounter: 01/12/19 Time of Encounter: 08:54 - Discharge Diagnosis (1) Coronary artery disease Priority: Primary Status: Chronic Qualifiers: Coronary Disease-Associated Artery/Lesion type: [place] artery [place] vs. transplanted heart: [place] heart Associated angina: angina presence unspecified Qualified Code(s): I25.10 - Atherosclerotic heart disease of [place] coronary artery without angina pectoris (2) Elevated brain natriuretic peptide (BNP) level Priority: Secondary Status: Acute (3) Hypertension Priority: Secondary Status: Chronic Qualifiers: Hypertension type: essential hypertension Qualified Code(s): I10 - Essential (primary) hypertension (4) Anemia Priority: Secondary Status: Chronic Qualifiers: Anemia type: unspecified type Qualified Code(s): D64.9 - Anemia, unspecified (5) Obesity Priority: Secondary Status: Chronic Qualifiers: Obesity type: due to excess calories Obesity classification: adult class 3 (BMI >= 40) Serious obesity comorbidity presence: with serious comorbidity Body mass index: BMI 45.0-49.9 Qualified Code(s): E66.01 - Morbid (severe) obesity due to excess calories; Z68.42 - Body mass index (BMI) 45.0-49.9, adult Hospital course: Ms. Kelly is a 68 year old female who was transferred to [facility] swing bed after an December [address] [facility] for chest pain. Her medications were adjusted and pain resolved. It was felt she would benefit from ongoing rehabilitation therapy and she was discharged to [facility] swing bed for ongoing care needs. Initial orders were written by the discharging physicians at [facility]. I saw her on December 28 and performed a swing bed history and physical. She was started on isosorbide. Lisinopril was discontinued because of hypotension. Metoprolol was changed to Toprol-XL 12.5 mg daily. Aspirin and Plavix were continued. She had no further chest pain after admission. Low dose Bumex was started and other medication doses were adjusted as per above. BN peptide decreased to 53 on 01/10/2019. She will continue this regimen at discharge. Anemia testing showed iron 63, transferrin saturation 17%, transferrin 261, ferritin 42, B12 419, and folate 5.0. She had weight loss diet instruction provided by the dietitian. On January 12 arrangements were complete for her to be discharged home. She will follow with her PCP at the [facility] residency clinic within 1 week. Outpatient therapy will continue. - Time Spent with Patient Total time spent providing and/or coordinating discharge services: - Discharge Medications Prescriptions: New Bumetanide [Bumex] 0.5 mg PO DAILY #15 tablet Isosorbide MONOnitrate (24 HR) [Imdur] 60 mg PO DAILY #30 tab.er.24h Memantine [Namenda] 5 mg PO DAILY #30 tablet Metoprolol XL (24 HR) Succ [Toprol XL] 12.5 mg PO DAILY #15 tab.er.24h Acetaminophen w/Cod 300-30 mg [Tylenol w/Codeine #3] 1 tab PO Q4H PRN 30 Days #120 tablet PRN Reason: Mild To Moderate Pain Continued Memantine HCl 5 mg PO DAILY Cholecalciferol (D-3) [Vitamin D] 2,000 unit PO DAILY Aspirin 81 mg PO DAILY #30 tab.chew Cetirizine HCl [24Hour Allergy] 5 mg PO DAILY PRN PRN Reason: Allergy Symptoms Buspirone HCl [Buspar] 10 mg PO BID #60 tablet Escitalopram [Lexapro] 20 mg PO DAILY #30 tablet Atorvastatin Calcium [Lipitor] 40 mg PO HS #15 Magnesium Oxide [Magnesium] 400 mg PO BID #60 tablet Polyethylene Glycol 3350 [MiraLAX] 17 gm PO BID PRN 30 Days powd.pack PRN Reason: Constipation Gabapentin [Neurontin] 900 mg PO TID 30 Days #270 capsule Nitroglycerin 0.4 mg SL Q5M PRN #25 tab.subl PRN Reason: Chest Pain Clopidogrel [Plavix] 75 mg PO DAILY #30 tablet Changed Pantoprazole Sodium [Protonix] 40 mg PO DAILY PRN #30 PRN Reason: Dyspepsia Discontinued Lisinopril [Zestril] 5 mg PO DAILY Metoprolol [Lopressor] 12.5 mg PO BID Home Medications: Cholecalciferol (D-3) [Vitamin D] 2,000 unit PO DAILY 09/08/18 [History] Memantine HCl 5 mg PO DAILY 09/08/18 [History] Aspirin 81 mg PO DAILY #30 tab.chew 09/09/18 [Rx] Cetirizine HCl [24Hour Allergy] 5 mg PO DAILY PRN 11/28/18 [History] Acetaminophen w/Cod 300-30 mg [Tylenol w/Codeine #3] 1 tab PO Q4H PRN 30 Days #120 tablet 01/12/19 [Rx] Atorvastatin Calcium [Lipitor] 40 mg PO HS #15 01/12/19 [Rx] Bumetanide [Bumex] 0.5 mg PO DAILY #15 tablet 01/12/19 [Rx] Buspirone HCl [Buspar] 10 mg PO BID #60 tablet 01/12/19 [Rx] Clopidogrel [Plavix] 75 mg PO DAILY #30 tablet 01/12/19 [Rx] Escitalopram [Lexapro] 20 mg PO DAILY #30 tablet 01/12/19 [Rx] Gabapentin [Neurontin] 900 mg PO TID 30 Days #270 capsule 01/12/19 [Rx] Isosorbide MONOnitrate (24 HR) [Imdur] 60 mg PO DAILY #30 tab.er.24h 01/12/19 [Rx] Magnesium Oxide [Magnesium] 400 mg PO BID #60 tablet 01/12/19 [Rx] Memantine [Namenda] 5 mg PO DAILY #30 tablet 01/12/19 [Rx] Metoprolol XL (24 HR) Succ [Toprol XL] 12.5 mg PO DAILY #15 tab.er.24h 01/12/19 [Rx] Nitroglycerin 0.4 mg SL Q5M PRN #25 tab.subl 01/12/19 [Rx] Pantoprazole Sodium [Protonix] 40 mg PO DAILY PRN #30 01/12/19 [Rx] Polyethylene Glycol 3350 [MiraLAX] 17 gm PO BID PRN 30 Days powd.pack 01/12/19 [Rx] Allergies/Adverse Reactions: Allergy/AdvReac Type Severity Reaction Status Date / Time sumatriptan [From Imitrex] Allergy Swelling Verified 12/23/18 14:55 of Lip/Tongue/Throat venom-honey bee Allergy Swelling Verified 12/23/18 14:55 [bee venom (honey bee)] of Lip/Tongue/Throat morphine AdvReac Nausea Verified 12/23/18 14:55 Date of admission: 12/27/18 20:40 Primary care physician: PCP NONE Consults: 12/27/18 20:59 Consult to Occupational Therapy [CONS] Routine Comment: Evaluate, develop and implement POC Reason for Consult: Evaluate and treat new swing bed Does patient have active BEDREST order?: No Is patient medically & hemodynamically stable?: Yes Patient assessed for mobility or mobilized this visit?: Yes Consult to Physical Therapy [CONS] Routine Comment: Evaluate, develop and implement POC Reason for Consult: Evaluate and treat new swing bed Does patient have active BEDREST order?: No Is patient medically & hemodynamically stable?: Yes Patient assessed for mobility or mobilized this visit?: Yes 12/31/18 12:44 consult to reservations and ticketing agent [Consult to Nutrition] [CONS] Routine Comment: obesity Consulting Provider: NUTRITION Reason for Dietary Consult: Diet Education - Constitutional Vitals: Temp Pulse Resp BP Pulse Ox 98.2 F 77 17 105/57 95 01/12/19 07:32 01/12/19 07:32 01/12/19 07:32 01/12/19 07:32 01/12/19 07:32 - Patient Status Disposition: Home, Self-Care - Discharge Instructions Follow Up With: NONE,PCP [Primary Care Provider] - 1 week - Diet and Activity Activity: resume usual activities as tolerated Diet: low fat, low cholesterol
[2019-01-12] MEDS: Aspirin 81 MG TAB.CHEW PO SCH (09:40)
[2019-01-12] MEDS: Gabapentin 300 MG CAPSULE PO SCH (09:40)
[2019-01-12] MEDS: Bumetanide 1 MG TABLET PO SCH (09:40)
[2019-01-12] MEDS: *HR* Acetaminophen w/Cod 300-30 mg 1 TAB TABLET PO PRN (09:41)
[2019-01-12] MEDS: Acetaminophen/Butalbital/CaffeineTABLET PO PRN (09:41)
[2019-01-12] MEDS: Cholecalciferol (D-3) 1,000 UNIT TABLET PO SCH (09:41)
[2019-01-12] MEDS: Metoprolol XL (24 HR) Succ 25 MG TAB.ER.24H PO SCH (09:41)
[2019-01-12] MEDS: ALPRAZolam 0.25 MG TABLET PO PRN (09:41)
[2019-01-12] MEDS: Isosorbide MONOnitrate (24 HR) 60 MG TAB.ER.24H PO SCH (09:42)
[2019-01-12] MEDS: Magnesium Oxide 400 MG TABLET PO SCH (09:42)
== END 2019-01-12 15:56 | disposition home or self-care (01) | DRG 303 ==
LOC: INPPIK 20:40
PROVIDERS: ADMIT Internal Medicine; ATTEND Internal Medicine

== ENCOUNTER 2019-03-03 10:21 | Inpatient (IN) ==
[2019-03-03] MEDS: Gabapentin 300 MG CAPSULE PO SCH ×2 (16:47→20:40)
[2019-03-03] MEDS: Magnesium Oxide 400 MG TABLET PO SCH (20:40)
[2019-03-03] MEDS: *HR* Acetaminophen w/Cod 300-30 mg 1 TAB TABLET PO PRN (20:40)
[2019-03-04] MEDS: *HR* Acetaminophen w/Cod 300-30 mg 1 TAB TABLET PO PRN ×3 (05:22→13:50)
[2019-03-04 05:39] LABS: Basophils % 0.6 %; Eosinophils # 0.2 K/mcL (0.0-0.6); Eosinophils % 3.5 %; Hematocrit 34.3 % (35.3-44.9); Hemoglobin 10.8 g/dL (11.5-15.4); Immature Granulocytes % 0.3 % (0-4); Lymphocytes # 2.6 K/mcL (0.6-4.6); Lymphocytes % 37.1 %; Mean Corpuscular HGB Conc 31.5 g/dL (31.6-35.5); Mean Corpuscular Hemoglobin 28.6 pg (28.0-33.3); Mean Platelet Volume 10.4 fL (9.4-12.4); Monocytes # 0.4 K/mcL (0.0-1.3); Monocytes % 6.1 %; Neutrophils # 3.6 K/mcL (1.6-8.9); Platelet Count 225 K/mcL (140-400); Red Blood Count 3.77 M/mcL (3.82-4.97); Red Cell Distribution Width 13.6 % (11.5-14.5); Segmented Neutrophils % 52.4 %; White Blood Count 6.9 K/mcL (4.3-11.1)
[2019-03-04 05:56] LABS: BUN/Creatinine Ratio 22 (6-26); Blood Urea Nitrogen 18 mg/dL (8-23); Calcium 8.8 mg/dL (8.6-10.3); Carbon Dioxide 27 mEq/L (23-29); Chloride 107 mEq/L (98-107); Glucose 111 mg/dL (70-105); Osmolality,Calculated 293 (280-300); Potassium 4.2 mEq/L (3.5-5.1); Sodium 140 mEq/L (136-145); eGFR For African Americans > 60 (> 60); eGFR For Non-African Americans > 60 (> 60)
[2019-03-04] MEDS ORDERED: Loratadine 10 MG TABLET PO SCH (09:00)
[2019-03-04] MEDS: Magnesium Oxide 400 MG TABLET PO SCH ×2 (09:17→21:12)
[2019-03-04] MEDS: Gabapentin 300 MG CAPSULE PO SCH ×3 (09:17→21:12)
[2019-03-04] MEDS: Cholecalciferol (D-3) 1,000 UNIT (25MCG) TABLET PO SCH (09:17)
[2019-03-04] MEDS: Metoprolol XL (24 HR) Succ 25 MG TAB.ER.24H PO SCH (09:17)
[2019-03-04] MEDS: Aspirin Enteric Coated 81 MG Tablet PO SCH (09:17)
[2019-03-04] MEDS: Isosorbide MONOnitrate (24 HR) 60 MG TAB.ER.24H PO SCH (09:18)
[2019-03-04] MEDS: ALPRAZolam 0.25 MG TABLET PO PRN (16:09)
--- NOTE | 2019-03-04 20:02 | Internal Med History&Physical ---
Date of Encounter: 03/04/19 Time of Encounter: 19:30 Assessment and Plan (1) Near syncope Current visit: No Status: Acute Etiology undetermined. Orthostatic vital signs will be checked in a.m. Further workup will be done as needed. (2) Hypertension Current visit: No Status: Chronic Continue Toprol-XL. Qualifiers: Hypertension type: essential hypertension Qualified Code(s): I10 - Essential (primary) hypertension (3) Anemia Current visit: No Status: Chronic Check anemia testing in a.m. Qualifiers: Anemia type: unspecified type Qualified Code(s): D64.9 - Anemia, unspecified (4) Headache Current visit: No Status: Acute Posttraumatic. Tylenol 3 will be discontinued and she will be given Percocet as needed. Qualifiers: Headache type: unspecified Headache chronicity pattern: acute headache Intractability: intractable Qualified Code(s): R51 - Headache Internal Medicine - H&P: HPI Chief complaint: Near syncope with fall Admitted From: Hospital to Hospital Transfer Plans for Post Hospital Care: Home History of present illness: Ms. Kelly is a 68 year old female who was discharged to [facility] swing bed March 03 following a February 27 [facility] stay for near syncope. She had been hospitalized February 24- with similar symptoms resulting in a fall and facial trauma without fracture. Extensive evaluations were done including brain MRI, heart catheter, echocardiogram, and carotid Doppler studies. The etiology of the near syncope was not determined. She was discharged to [facility] swing bed rehabilitation therapy prior to returning to independent living. Past Med Surg Social Fam HX - Past Medical History Medical history: arthritis, cancer, coronary artery disease, DVT, fibromyalgia, GERD, hyperlipidemia, hypertension, kidney stones, malignancy, migraine, myocardial infarction, seizures Additional medical history: uturine cancer. Left leg DVT. fibromyalgia Psychiatric history: anxiety, depression, panic disorder, PTSD - Past Surgical History Surgical History: angioplasty/stent, cholecystectomy, hip replacement, other Additional surgical history: Left hip replacement. right shoulder Surgery - Social History Smoking Status: Never smoker Smokeless Tobacco Status: No Alcohol use: none Drug use: none - Family History Mother Family Member Ethnicity: Non- Living Status: Still Living Hx Family Cardiac Disorders: Yes (ME) Hx Family Respiratory Disorders: Yes Hx Family Cancer: Yes ("female") Hx Family GI Disorders: No Hx Family Endocrine Disorder: No Hx Family Neuromuscular Disorders: No Hx Family Neurologic Disorders: No Hx Family HEENT Disorders: No Hx Family Autoimmune Disorders: No Father Family Member Ethnicity: Non- Living Status: Unknown Hx Family Cardiac Disorders: Yes (ME) Hx Family Respiratory Disorders: No Hx Family Cancer: No Hx Family GI Disorders: No Hx Family Endocrine Disorder: No Hx Family Neuromuscular Disorders: No Hx Family Neurologic Disorders: No Hx Family HEENT Disorders: No Hx Family Autoimmune Disorders: No Brother Family Member Ethnicity: Non- Living Status: Still Living Hx Family Cardiac Disorders: Yes (CAD) Internal Medicine - H&P: Meds Cholecalciferol (D-3) [Vitamin D] 1,000 unit PO QAM 09/08/18 [History] Cetirizine HCl [24Hour Allergy] 10 mg PO QAM 11/28/18 [History] Atorvastatin Calcium [Lipitor] 40 mg PO HS #15 01/12/19 [Rx] Buspirone HCl [Buspar] 10 mg PO BID #60 tablet 01/12/19 [Rx] Clopidogrel [Plavix] 75 mg PO DAILY #30 tablet 01/12/19 [Rx] Escitalopram [Lexapro] 20 mg PO DAILY #30 tablet 01/12/19 [Rx] Isosorbide MONOnitrate (24 HR) [Imdur] 60 mg PO DAILY #30 tab.er.24h 01/12/19 [Rx] Magnesium Oxide [Magnesium] 400 mg PO BID #60 tablet 01/12/19 [Rx] Memantine [Namenda] 5 mg PO DAILY #30 tablet 01/12/19 [Rx] Nitroglycerin 0.4 mg SL Q5M PRN #25 tab.subl 01/12/19 [Rx] Acetaminophen w/Cod 300-30 mg [Tylenol w/Codeine #3] 1 tab PO Q4H PRN 02/24/19 [History] Gabapentin [Neurontin] 900 mg PO TID 02/24/19 [History] Aspirin [Adult Aspirin Regimen] 81 mg PO DAILY 02/26/19 [History] Metoprolol XL (24 HR) Succ [Toprol Xl] 25 mg PO DAILY 02/26/19 [History] Pantoprazole Sodium 40 mg PO QAM 02/26/19 [History] Allergy/AdvReac Type Severity Reaction Status Date / Time sumatriptan [From Imitrex] Allergy Swelling Verified 02/28/19 00:45 of Lip/Tongue/Throat venom-honey bee Allergy Swelling Verified 02/28/19 00:45 [bee venom (honey bee)] of Lip/Tongue/Throat morphine AdvReac Nausea Verified 02/28/19 00:45 All Systems PM: A 10-system review of systems was performed and is negative for pertinent findings except as documented above in the HPI. Review of systems: Review of systems from her December 2018 [facility] swing bed stay were reviewed and revised as below. Gen.: Her weight has decreased from 135.6 kg on 12/29/2018 to 129.075 kg now. Cardiovascular: She has history of hypertension. She has known ASHD status post ME January 2016. She had heart cath at [facility] 02/24/2019 showing LMCA free of d isease, LAD with 20% in-stent restenosis in the proximal LAD and 25% stenosis in the mid LAD, 30% stenosis in the proximal circumflex and 50% stenosis in the mid circumflex, 30 % stenosis in the proximal RCA, 20% in-stent restenosis in the mid RCA and 30% stenosis in the distal RCA. Echocardiogram 02/25/2019 showed LVEF of 55%. No significant valvular abnormalities were seen. The interventricular septum and posterior wall thickness measurements were 1.32 and 1.05 cm respectively. E/A ratio was 1.2. She has history of left leg DVT approximately 20 years ago. She denies pulmonary embolus. She has predictable dyspnea on exertion. Carotid Doppler 02/28/2019 showed unremarkable right car otid system and left distal ICA with moderate 40-59% stenosis. Respiratory: She smoked for approximately 3 years in early adulthood. She denies chronic lung disease and does not use home oxygen. She has not been tested for sleep apnea. GI: She has had cholecystectomy. She denies disorders of her liver or exocrine pancreas : She has history of multiple kidney stones with most recent one approximately February 2016. She denies other kidney or bladder disorders. Neurologic: She has history of migraine headaches. She denies large distribution strokes or seizures. Endocrine: She has history of hyperlipidemia. She denies diabetes or thyroid disease. Hematology/oncology: She has history of cervical cancer with curative hysterectomy several years ago. She denies other internal malignancies. She has had anemia on most labs since November 2014. Psychiatric: She has anxiety, depression, and PTSD. [place] skeletal: She has fibromyalgia and DJD. She had left total hip replacement and right total shoulder replacement in 2015. She denies gout or other bone joint or muscle disorders except pain in her left shoulder following her recent fall. - Constitutional Vitals: Temp Pulse Resp BP Pulse Ox 98.4 F 67 17 100/60 95 03/04/19 18:57 03/04/19 18:57 03/04/19 18:57 03/04/19 18:57 03/04/19 18:57 Exam: Gen.: She is a well-developed obese female lying in bed who appears in no acute distress HEENT: She has ecchymosis on her left bilateral maxilla and periorbital area from recent fall. Eyes: EOMI. There is no scleral icterus. Mouth: Mucosa is moist. Neck: Supple and nontender. There is no thyromegaly or adenopathy noted. Heart: Regular without murmurs gallops or ectopics Lungs: No wheezes or crackles are heard. Abdomen: Soft and nontender. No masses or guarding are noted. Extremities: There is no cyanosis edema or clubbing noted. Dorsalis pedis and posterior tibial pulses are trace to 1+ palpable bilaterally. She has pain on movement of her left shoulder. No obvious effusion is palpated. There is no discoloration of the shoulder or surrounding skin. Neurologic: Mental status: She is talkative and a good historian. Cranial nerves: Smile is symmetric. Forehead wrinkles bilaterally. Tongue protrudes midline. EOMI. Motor: There is no pronator drift. Cerebellar: Finger to nose is intact bilaterally. Skin: Warm and dry Internal Med - H&P Results - Labs CBC & Chem 7: 03/04/19 05:13 03/04/19 05:13 Labs: Short CBC 03/04/19 Range/Units 05:13 WBC 6.9 (4.3-11.1) K/mcL Hgb 10.8 L (11.5-15.4) g/dL Hct 34.3 L (35.3-44.9) % Plt Count 225 (140-400) K/mcL Neutrophils # 3.6 (1.6-8.9) K/mcL BMP 03/04/19 05:13 Sodium 140 Potassium 4.2 Chloride 107 Carbon Dioxide 27 BUN 18 Creatinine 0.81 Glucose 111 H Calcium 8.8
[2019-03-04] MEDS: *HR* OxyCODONE/APAP 5/325 TABLET PO PRN (21:12)
[2019-03-05] MEDS: *HR* OxyCODONE/APAP 5/325 TABLET PO PRN ×4 (05:14→22:09)
[2019-03-05] MEDS: ALPRAZolam 0.25 MG TABLET PO PRN ×3 (05:16→22:09)
[2019-03-05] MEDS: Aspirin Enteric Coated 81 MG Tablet PO SCH (08:49)
[2019-03-05] MEDS: Metoprolol XL (24 HR) Succ 25 MG TAB.ER.24H PO SCH (08:49)
[2019-03-05] MEDS: Magnesium Oxide 400 MG TABLET PO SCH ×2 (08:50→22:05)
[2019-03-05] MEDS: Gabapentin 300 MG CAPSULE PO SCH ×3 (08:50→22:05)
[2019-03-05] MEDS: Cholecalciferol (D-3) 1,000 UNIT (25MCG) TABLET PO SCH (08:50)
[2019-03-05] MEDS: Isosorbide MONOnitrate (24 HR) 60 MG TAB.ER.24H PO SCH (08:50)
[2019-03-05] MEDS ORDERED: ALPRAZolam 0.25 MG TABLET PO STA (09:08)
[2019-03-05 09:20] LABS: Magnesium 1.9 mg/dL (1.6-2.6); Phosphorous 3.3 mg/dL (2.7-4.5)
[2019-03-05 10:03] LABS: Folate 4.9 ng/mL (3.0-16.0)
--- NOTE | 2019-03-05 18:36 | Internal Med Progress Note ---
Date of Encounter: 03/05/19 Time of Encounter: 18:27 - Assessment and plan (1) Near syncope Current Visit: No Status: Acute Assessment and plan: March 05. Etiology undetermined. Orthostatic vital signs not yet recorded. Continue to monitor. (2) Hypertension Current Visit: No Status: Chronic Assessment and plan: March 05. Continue Toprol-XL. Qualifiers: Hypertension type: essential hypertension Qualified Code(s): I10 - Essential (primary) hypertension (3) Anemia Current Visit: No Status: Chronic Assessment and plan: March 05. Anemia testing showed iron 38, transferrin saturation 11%, transferrin 258, ferritin 13, B12 400, and folate 4.9. Start ferrous sulfate with ascorbic acid in a.m. Qualifiers: Anemia type: unspecified type Qualified Code(s): D64.9 - Anemia, unspecified (4) Headache Current Visit: No Status: Acute Assessment and plan: March 05. Posttraumatic. Continue Percocet as needed. Qualifiers: Headache type: unspecified Headache chronicity pattern: acute headache Intractability: intractable Qualified Code(s): R51 - Headache (5) Left shoulder pain Current Visit: Yes Status: Acute Assessment and plan: March 05. MRI showed no fracture or rotator cuff injury. Will refer to [facility] for further evaluation Qualifiers: Chronicity: acute Qualified Code(s): M25.512 - Pain in left shoulder - Subjective Interval history: March 05. She has no new complaints. She reports her headache and shoulder pain have lessened. - Constitutional Vitals: Temp Pulse Resp BP Pulse Ox 98.8 F 70 16 114/68 94 03/05/19 07:49 03/05/19 07:49 03/05/19 07:49 03/05/19 07:49 03/05/19 07:49 Exam: She is lying in bed and appears in no severe distress. Her affect is overall cheerful. I reviewed her medications and lab results. I discussed her MRI report. Internal Medicine: Result - Labs CBC & Chem 7: 03/04/19 05:13 03/04/19 05:13 - Impressions Impressions Shoulder MRI 03/05/19 16:14 IMPRESSION: 1. No acute osseous abnormality or rotator cuff tear. 2. Severe glenohumeral degenerative changes. 3. Mild acromioclavicular degenerative changes. D/ / Gary Peterson MD / Gary Peterson MD Interpreting Provider: Gary Peterson MD Consult Discharge Plan - Plan Referrals: NONE,PCP [Primary Care Provider] - 1 week
[2019-03-06] MEDS: Ascorbic Acid 500 MG TABLET PO SCH (06:34)
[2019-03-06] MEDS: ALPRAZolam 0.25 MG TABLET PO PRN ×3 (06:39→22:04)
[2019-03-06] MEDS: *HR* OxyCODONE/APAP 5/325 TABLET PO PRN ×3 (06:39→22:03)
[2019-03-06] MEDS: Gabapentin 300 MG CAPSULE PO SCH ×3 (09:22→22:03)
[2019-03-06] MEDS: Metoprolol XL (24 HR) Succ 25 MG TAB.ER.24H PO SCH (09:22)
[2019-03-06] MEDS: Magnesium Oxide 400 MG TABLET PO SCH ×2 (09:23→22:04)
[2019-03-06] MEDS: Aspirin Enteric Coated 81 MG Tablet PO SCH (09:23)
[2019-03-06] MEDS: Isosorbide MONOnitrate (24 HR) 60 MG TAB.ER.24H PO SCH (09:23)
[2019-03-06] MEDS: Cholecalciferol (D-3) 1,000 UNIT (25MCG) TABLET PO SCH (09:23)
[2019-03-07] MEDS: Ascorbic Acid 500 MG TABLET PO SCH (06:21)
[2019-03-07] MEDS: *HR* OxyCODONE/APAP 5/325 TABLET PO PRN ×3 (06:21→21:54)
[2019-03-07] MEDS: ALPRAZolam 0.25 MG TABLET PO PRN ×3 (06:21→21:53)
[2019-03-07] MEDS: Aspirin Enteric Coated 81 MG Tablet PO SCH (08:44)
[2019-03-07] MEDS: Magnesium Oxide 400 MG TABLET PO SCH ×2 (08:44→21:53)
[2019-03-07] MEDS: Isosorbide MONOnitrate (24 HR) 60 MG TAB.ER.24H PO SCH (08:44)
[2019-03-07] MEDS: Cholecalciferol (D-3) 1,000 UNIT (25MCG) TABLET PO SCH (08:45)
[2019-03-07] MEDS: Metoprolol XL (24 HR) Succ 25 MG TAB.ER.24H PO SCH (08:45)
[2019-03-07] MEDS: Gabapentin 300 MG CAPSULE PO SCH ×3 (08:45→21:53)
[2019-03-07] MEDS: Albuterol 2.5 MG/3 ML NEBULIZER IH PRN (11:26)
[2019-03-08] MEDS: ALPRAZolam 0.25 MG TABLET PO PRN ×3 (06:04→20:51)
[2019-03-08] MEDS: Ascorbic Acid 500 MG TABLET PO SCH (06:04)
[2019-03-08] MEDS: *HR* OxyCODONE/APAP 5/325 TABLET PO PRN ×4 (06:05→20:52)
[2019-03-08] MEDS: Albuterol 2.5 MG/3 ML NEBULIZER IH PRN ×2 (07:35→22:06)
[2019-03-08] MEDS: Isosorbide MONOnitrate (24 HR) 60 MG TAB.ER.24H PO SCH (10:01)
[2019-03-08] MEDS: Magnesium Oxide 400 MG TABLET PO SCH ×2 (10:01→20:52)
[2019-03-08] MEDS: Metoprolol XL (24 HR) Succ 25 MG TAB.ER.24H PO SCH (10:02)
[2019-03-08] MEDS: Gabapentin 300 MG CAPSULE PO SCH ×3 (10:02→20:51)
[2019-03-08] MEDS: Cholecalciferol (D-3) 1,000 UNIT (25MCG) TABLET PO SCH (10:02)
[2019-03-08] MEDS: Aspirin Enteric Coated 81 MG Tablet PO SCH (10:02)
--- NOTE | 2019-03-08 16:04 | Internal Med Progress Note ---
Date of Encounter: 03/08/19 Time of Encounter: 15:40 - Assessment and plan (1) Near syncope Current Visit: No Status: Acute Assessment and plan: March 05. Etiology undetermined. Orthostatic vital signs not yet recorded. Continue to monitor. (2) Hypertension Current Visit: No Status: Chronic Assessment and plan: March 05. Continue Toprol-XL. Qualifiers: Hypertension type: essential hypertension Qualified Code(s): I10 - Essential (primary) hypertension (3) Anemia Current Visit: No Status: Chronic Assessment and plan: March 05. Anemia testing showed iron 38, transferrin saturation 11%, transferrin 258, ferritin 13, B12 400, and folate 4.9. Start ferrous sulfate with ascorbic acid in a.m. March 08. Continue ferrous sulfate with ascorbic acid. Qualifiers: Anemia type: unspecified type Qualified Code(s): D64.9 - Anemia, unspecified (4) Headache Current Visit: No Status: Acute Assessment and plan: March 05. Posttraumatic. Continue Percocet as needed. Qualifiers: Headache type: unspecified Headache chronicity pattern: acute headache Intractability: intractable Qualified Code(s): R51 - Headache (5) Left shoulder pain Current Visit: Yes Status: Acute Assessment and plan: March 05. MRI showed no fracture or rotator cuff injury. Will refer to [facility] for further evaluation March 08. She was seen by bone and joint staff today and referred for consideration for shoulder surgery. Qualifiers: Chronicity: acute Qualified Code(s): M25.512 - Pain in left shoulder - Subjective Interval history: March 05. She has no new complaints. She reports her headache and shoulder pain have lessened. March 08. She has no new complaints. - Constitutional Vitals: Temp Pulse Resp BP Pulse Ox 98.0 F 72 16 110/59 94 03/08/19 06:47 03/08/19 06:47 03/08/19 07:35 03/08/19 06:47 03/08/19 07:35 Exam: She is resting comfortably in bed and appears in no acute distress. Her affect is bright and cheerful. I reviewed her medications and lab results. Internal Medicine: Result - Labs CBC & Chem 7: 03/04/19 05:13 03/04/19 05:13 Consult Discharge Plan - Plan Referrals: NONE,PCP [Primary Care Provider] - 1 week
[2019-03-09] MEDS: Ascorbic Acid 500 MG TABLET PO SCH (06:17)
[2019-03-09] MEDS: *HR* OxyCODONE/APAP 5/325 TABLET PO PRN ×4 (06:17→22:25)
[2019-03-09] MEDS: ALPRAZolam 0.25 MG TABLET PO PRN ×4 (06:17→22:24)
[2019-03-09] MEDS: Cholecalciferol (D-3) 1,000 UNIT (25MCG) TABLET PO SCH (07:21)
[2019-03-09] MEDS: Gabapentin 300 MG CAPSULE PO SCH ×3 (07:21→22:24)
[2019-03-09] MEDS: Isosorbide MONOnitrate (24 HR) 60 MG TAB.ER.24H PO SCH (07:22)
[2019-03-09] MEDS: Magnesium Oxide 400 MG TABLET PO SCH ×2 (07:22→22:24)
[2019-03-09] MEDS: Metoprolol XL (24 HR) Succ 25 MG TAB.ER.24H PO SCH (07:22)
[2019-03-09] MEDS: Aspirin Enteric Coated 81 MG Tablet PO SCH (07:22)
[2019-03-09] MEDS: Albuterol 2.5 MG/3 ML NEBULIZER IH PRN ×3 (10:37→22:57)
[2019-03-09] MEDS: Methyl Salicylate/Menthol 28 GM TUBE TP SCH (22:32)
[2019-03-10] MEDS: Albuterol 2.5 MG/3 ML NEBULIZER IH PRN ×2 (04:39→10:21)
[2019-03-10] MEDS: Ascorbic Acid 500 MG TABLET PO SCH (05:53)
[2019-03-10 08:14] LABS: Basophils % 0.4 %; Eosinophils # 0.3 K/mcL (0.0-0.6); Eosinophils % 2.5 %; Hematocrit 32.6 % (35.3-44.9); Hemoglobin 10.2 g/dL (11.5-15.4); Immature Granulocytes % 0.7 % (0-4); Lymphocytes % 17.4 %; Mean Corpuscular HGB Conc 31.3 g/dL (31.6-35.5); Mean Corpuscular Hemoglobin 29.3 pg (28.0-33.3); Mean Corpuscular Volume 93.7 fL (83.0-100.0); Mean Platelet Volume 10.1 fL (9.4-12.4); Monocytes # 0.9 K/mcL (0.0-1.3); Platelet Count 224 K/mcL (140-400); Red Blood Count 3.48 M/mcL (3.82-4.97); White Blood Count 10.6 K/mcL (4.3-11.1)
[2019-03-10 08:30] LABS: Lymphocytes # 1.8 K/mcL (0.6-4.6); Neutrophils # 7.5 K/mcL (1.6-8.9)
[2019-03-10] MEDS: Aspirin Enteric Coated 81 MG Tablet PO SCH (09:23)
[2019-03-10] MEDS: Isosorbide MONOnitrate (24 HR) 60 MG TAB.ER.24H PO SCH (09:24)
[2019-03-10] MEDS: *HR* OxyCODONE/APAP 5/325 TABLET PO PRN ×3 (09:24→22:46)
[2019-03-10] MEDS: ALPRAZolam 0.25 MG TABLET PO PRN ×3 (09:24→22:46)
[2019-03-10] MEDS: Cholecalciferol (D-3) 1,000 UNIT (25MCG) TABLET PO SCH (09:24)
[2019-03-10] MEDS: Metoprolol XL (24 HR) Succ 25 MG TAB.ER.24H PO SCH (09:24)
[2019-03-10] MEDS: Gabapentin 300 MG CAPSULE PO SCH ×3 (09:24→22:45)
[2019-03-10] MEDS: Magnesium Oxide 400 MG TABLET PO SCH ×2 (09:24→22:45)
[2019-03-10] MEDS: Methyl Salicylate/Menthol 28 GM TUBE TP SCH ×2 (09:25→22:51)
[2019-03-10 09:39] LABS: BUN/Creatinine Ratio 28 (6-26); Blood Urea Nitrogen 22 mg/dL (8-23); Calcium 8.4 mg/dL (8.6-10.3); Carbon Dioxide 28 mEq/L (23-29); Chloride 107 mEq/L (98-107); Glucose 124 mg/dL (70-105); Osmolality,Calculated 299 (280-300); Sodium 142 mEq/L (136-145); eGFR For African Americans > 60 (> 60); eGFR For Non-African Americans > 60 (> 60)
--- NOTE | 2019-03-10 11:58 | Internal Med Progress Note ---
Date of Encounter: 03/10/19 Time of Encounter: 11:50 - Assessment and plan (1) Near syncope Current Visit: No Status: Acute Assessment and plan: March 05. Etiology undetermined. Orthostatic vital signs not yet recorded. Continue to monitor. (2) Hypertension Current Visit: No Status: Chronic Assessment and plan: March 05. Continue Toprol-XL. Qualifiers: Hypertension type: essential hypertension Qualified Code(s): I10 - Essential (primary) hypertension (3) Anemia Current Visit: No Status: Chronic Assessment and plan: March 05. Anemia testing showed iron 38, transferrin saturation 11%, transferrin 258, ferritin 13, B12 400, and folate 4.9. Start ferrous sulfate with ascorbic acid in a.m. March 08. Continue ferrous sulfate with ascorbic acid. March 10. Hemoglobin slightly decreased to 10.2. Continue ferrous sulfate with ascorbic acid and monitor CBC periodically. Qualifiers: Anemia type: unspecified type Qualified Code(s): D64.9 - Anemia, unspecified (4) Headache Current Visit: No Status: Acute Assessment and plan: March 05. Posttraumatic. Continue Percocet as needed. Qualifiers: Headache type: unspecified Headache chronicity pattern: acute headache Intractability: intractable Qualified Code(s): R51 - Headache (5) Left shoulder pain Current Visit: Yes Status: Acute Assessment and plan: March 05. MRI showed no fracture or rotator cuff injury. Will refer to [facility] for further evaluation March 08. She was seen by bone and joint staff today and referred for consideration for shoulder surgery. March 10. Continue topical BenGay and prn Percocet. Appointment with orthopedist 03/13/2019. Qualifiers: Chronicity: acute Qualified Code(s): M25.512 - Pain in left shoulder (6) Viral URI Current Visit: Yes Status: Acute Assessment and plan: March 10. Pro-calcitonin level 0.02. Chest x-ray unremarkable. She will be given Cepacol lozenges for symptomatic relief of sore throat. (7) Diastolic heart failure Current Visit: Yes Status: Acute Assessment and plan: March 10. BN peptide slightly elevated at 208. Echocardiogram 02/25/2019 showed LVEF of 55%. Start low-dose Bumex and continue Toprol-XL. Qualifiers: Heart failure chronicity: acute on chronic Qualified Code(s): I50.33 - Acute on chronic diastolic (congestive) heart failure - Subjective Interval history: March 05. She has no new complaints. She reports her headache and shoulder pain have lessened. March 08. She has no new complaints. March 10. She feels slightly dyspneic and has sore throat. - Constitutional Vitals: Temp Pulse Resp BP Pulse Ox 99.3 F 92 18 119/71 94 03/10/19 07:53 03/10/19 07:53 03/10/19 10:21 03/10/19 07:53 03/10/19 10:21 Exam: Her affect is overall cheerful. She has prolonged expiratory phase with mild upper airway wheezing. No peripheral inspiratory crackles are heard. Heart is regular without murmurs gallops or ectopics. Extremities show no pitting edema. I reviewed her medications and lab results. Internal Medicine: Result - Labs CBC & Chem 7: 03/10/19 07:59 03/10/19 07:59 Labs: Short CBC 03/10/19 Range/Units 07:59 WBC 10.6 D (4.3-11.1) K/mcL Hgb 10.2 L (11.5-15.4) g/dL Hct 32.6 L (35.3-44.9) % Plt Count 224 (140-400) K/mcL Neutrophils # 7.5 (1.6-8.9) K/mcL BMP 03/10/19 07:59 Sodium 142 Potassium 4.0 Chloride 107 Carbon Dioxide 28 BUN 22 Creatinine 0.80 Glucose 124 H Calcium 8.4 L - Impressions Impressions Chest X-Ray 03/10/19 07:42 IMPRESSION: No acute process. D/ / Juan Mijares MD / Juan Mijares MD Interpreting Provider: Juan Mijares MD Consult Discharge Plan - Plan Referrals: NONE,PCP [Primary Care Provider] - 1 week
[2019-03-10] MEDS: Bumetanide 1 MG TABLET PO SCH (15:17)
[2019-03-11] MEDS: Albuterol 2.5 MG/3 ML NEBULIZER IH PRN ×2 (03:24→19:46)
[2019-03-11] MEDS: Ascorbic Acid 500 MG TABLET PO SCH (06:21)
[2019-03-11] MEDS: ALPRAZolam 0.25 MG TABLET PO PRN ×3 (06:21→21:31)
[2019-03-11] MEDS: *HR* OxyCODONE/APAP 5/325 TABLET PO PRN ×4 (06:21→21:25)
[2019-03-11] MEDS: Bumetanide 1 MG TABLET PO SCH (08:24)
[2019-03-11] MEDS: Isosorbide MONOnitrate (24 HR) 60 MG TAB.ER.24H PO SCH (08:24)
[2019-03-11] MEDS: Metoprolol XL (24 HR) Succ 25 MG TAB.ER.24H PO SCH (08:25)
[2019-03-11] MEDS: Aspirin Enteric Coated 81 MG Tablet PO SCH (08:25)
[2019-03-11] MEDS: Cholecalciferol (D-3) 1,000 UNIT (25MCG) TABLET PO SCH (08:25)
[2019-03-11] MEDS: Magnesium Oxide 400 MG TABLET PO SCH ×2 (08:25→21:25)
[2019-03-11] MEDS: Methyl Salicylate/Menthol 28 GM TUBE TP SCH ×2 (08:25→21:26)
[2019-03-11] MEDS: Gabapentin 300 MG CAPSULE PO SCH ×3 (08:25→21:25)
--- NOTE | 2019-03-11 12:40 | Internal Med Progress Note ---
Date of Encounter: 03/11/19 Time of Encounter: 12:30 - Assessment and plan (1) Near syncope Current Visit: No Status: Acute Assessment and plan: March 05. Etiology undetermined. Orthostatic vital signs not yet recorded. Continue to monitor. (2) Hypertension Current Visit: No Status: Chronic Assessment and plan: March 05. Continue Toprol-XL. Qualifiers: Hypertension type: essential hypertension Qualified Code(s): I10 - Essential (primary) hypertension (3) Anemia Current Visit: No Status: Chronic Assessment and plan: March 05. Anemia testing showed iron 38, transferrin saturation 11%, transferrin 258, ferritin 13, B12 400, and folate 4.9. Start ferrous sulfate with ascorbic acid in a.m. March 08. Continue ferrous sulfate with ascorbic acid. March 10. Hemoglobin slightly decreased to 10.2. Continue ferrous sulfate with ascorbic acid and monitor CBC periodically. March 11. Recheck labs in a.m. Qualifiers: Anemia type: unspecified type Qualified Code(s): D64.9 - Anemia, unspecified (4) Headache Current Visit: No Status: Acute Assessment and plan: March 05. Posttraumatic. Continue Percocet as needed. Qualifiers: Headache type: unspecified Headache chronicity pattern: acute headache Intractability: intractable Qualified Code(s): R51 - Headache (5) Left shoulder pain Current Visit: Yes Status: Acute Assessment and plan: March 05. MRI showed no fracture or rotator cuff injury. Will refer to [facility] for further evaluation March 08. She was seen by bone and joint staff today and referred for consideration for shoulder surgery. March 10. Continue topical BenGay and prn Percocet. Appointment with orthopedist 03/13/2019. Qualifiers: Chronicity: acute Qualified Code(s): M25.512 - Pain in left shoulder (6) Viral URI Current Visit: Yes Status: Acute Assessment and plan: March 10. Pro-calcitonin level 0.02. Chest x-ray unremarkable. She will be given Cepacol lozenges for symptomatic relief of sore throat. March 11. Recheck labs and chest x-ray. (7) Diastolic heart failure Current Visit: Yes Status: Acute Assessment and plan: March 10. BN peptide slightly elevated at 208. Echocardiogram 02/25/2019 showed LVEF of 55%. Start low-dose Bumex and continue Toprol-XL. March 11. Continue present Rx and recheck labs in a.m. Qualifiers: Heart failure chronicity: acute on chronic Qualified Code(s): I50.33 - Acute on chronic diastolic (congestive) heart failure - Subjective Interval history: March 05. She has no new complaints. She reports her headache and shoulder pain have lessened. March 08. She has no new complaints. March 10. She feels slightly dyspneic and has sore throat. March 11. She has no new complaints. She states she is slightly dyspneic and does not feel well overall. - Constitutional Vitals: Temp Pulse Resp BP Pulse Ox 101.2 F H 80 16 139/53 93 03/11/19 09:00 03/11/19 09:00 03/11/19 09:00 03/11/19 09:00 03/11/19 09:00 Exam: She is sitting in a chair at bedside eating lunch. Her affect is overall ch eerful. She appears slightly dyspneic at rest. Lungs show clear periphery but expiratory wheezes audible in the upper anterior chest/trachea area. I reviewed her medications and lab results. Internal Medicine: Result - Labs CBC & Chem 7: 03/10/19 07:59 03/10/19 07:59 Consult Discharge Plan - Plan Referrals: NONE,PCP [Primary Care Provider] - 1 week
[2019-03-11 14:24] LABS: Bilirubin,Urine Negative (Negative); Blood,Urine Negative (Negative); Clarity,Urine Hazy (Clear); Color,Urine Yellow (Yellow); Glucose,Urine (UA) Normal (Normal); Ketones,Urine Negative (Negative); Leukocyte Esterase,Urine Negative (Negative); Nitrite,Urine Negative (Negative); PH,Urine 5.5 pH Units (5.0-8.0); Protein,Urine Negative (Neg-Trace); Specific Gravity,Urine 1.015 (1.010-1.025); Urobilinogen,Urine Normal (Normal)
[2019-03-12] MEDS: Albuterol 2.5 MG/3 ML NEBULIZER IH PRN ×6 (00:17→23:43)
[2019-03-12] MEDS: Ascorbic Acid 500 MG TABLET PO SCH (05:27)
[2019-03-12] MEDS: ALPRAZolam 0.25 MG TABLET PO PRN ×3 (05:29→21:19)
[2019-03-12] MEDS: *HR* OxyCODONE/APAP 5/325 TABLET PO PRN ×3 (05:30→21:20)
[2019-03-12 06:01] LABS: Basophils % 0.3 %; Eosinophils # 0.3 K/mcL (0.0-0.6); Eosinophils % 2.8 %; Hematocrit 31.7 % (35.3-44.9); Hemoglobin 9.8 g/dL (11.5-15.4); Immature Granulocytes % 0.3 % (0-4); Lymphocytes # 2.3 K/mcL (0.6-4.6); Lymphocytes % 24.7 %; Mean Corpuscular HGB Conc 30.9 g/dL (31.6-35.5); Mean Corpuscular Hemoglobin 28.9 pg (28.0-33.3); Mean Corpuscular Volume 93.5 fL (83.0-100.0); Mean Platelet Volume 10.4 fL (9.4-12.4); Monocytes # 0.7 K/mcL (0.0-1.3); Monocytes % 7.3 %; Platelet Count 225 K/mcL (140-400); Red Blood Count 3.39 M/mcL (3.82-4.97); Red Cell Distribution Width 13.9 % (11.5-14.5); Segmented Neutrophils % 64.6 %; White Blood Count 9.3 K/mcL (4.3-11.1)
[2019-03-12 06:34] LABS: BUN/Creatinine Ratio 23 (6-26); Blood Urea Nitrogen 19 mg/dL (8-23); Calcium 8.5 mg/dL (8.6-10.3); Carbon Dioxide 30 mEq/L (23-29); Chloride 104 mEq/L (98-107); Glucose 139 mg/dL (70-105); Magnesium 2.1 mg/dL (1.6-2.6); Osmolality,Calculated 297 (280-300); Potassium 3.7 mEq/L (3.5-5.1); Sodium 141 mEq/L (136-145); eGFR For African Americans > 60 (> 60); eGFR For Non-African Americans > 60 (> 60)
[2019-03-12] MEDS: Cholecalciferol (D-3) 1,000 UNIT (25MCG) TABLET PO SCH (08:41)
[2019-03-12] MEDS: Magnesium Oxide 400 MG TABLET PO SCH ×2 (08:41→21:20)
[2019-03-12] MEDS: Isosorbide MONOnitrate (24 HR) 60 MG TAB.ER.24H PO SCH (08:42)
[2019-03-12] MEDS: Gabapentin 300 MG CAPSULE PO SCH ×3 (08:42→21:20)
[2019-03-12] MEDS: Metoprolol XL (24 HR) Succ 25 MG TAB.ER.24H PO SCH (08:42)
[2019-03-12] MEDS: Aspirin Enteric Coated 81 MG Tablet PO SCH (08:42)
[2019-03-12] MEDS: Bumetanide 1 MG TABLET PO SCH (08:42)
[2019-03-12] MEDS: Methyl Salicylate/Menthol 28 GM TUBE TP SCH ×2 (08:43→21:20)
[2019-03-12] MEDS: Acetaminophen 325 MG TABLET PO PRN (17:40)
[2019-03-13] MEDS: Ascorbic Acid 500 MG TABLET PO SCH (05:50)
[2019-03-13] MEDS: ALPRAZolam 0.25 MG TABLET PO PRN ×2 (05:50→15:20)
[2019-03-13] MEDS: *HR* OxyCODONE/APAP 5/325 TABLET PO PRN ×3 (05:50→22:41)
[2019-03-13] MEDS: Gabapentin 300 MG CAPSULE PO SCH ×3 (07:51→22:40)
[2019-03-13] MEDS: Metoprolol XL (24 HR) Succ 25 MG TAB.ER.24H PO SCH (07:52)
[2019-03-13] MEDS: Bumetanide 1 MG TABLET PO SCH (07:52)
[2019-03-13] MEDS: Magnesium Oxide 400 MG TABLET PO SCH ×2 (07:52→22:40)
[2019-03-13] MEDS: Aspirin Enteric Coated 81 MG Tablet PO SCH (07:52)
[2019-03-13] MEDS: Isosorbide MONOnitrate (24 HR) 60 MG TAB.ER.24H PO SCH (07:52)
[2019-03-13] MEDS: Cholecalciferol (D-3) 1,000 UNIT (25MCG) TABLET PO SCH (07:58)
[2019-03-13] MEDS: Methyl Salicylate/Menthol 28 GM TUBE TP SCH ×2 (07:58→22:41)
[2019-03-13] MEDS: Albuterol 2.5 MG/3 ML NEBULIZER IH PRN ×3 (08:43→23:21)
--- NOTE | 2019-03-13 16:16 | Internal Med Progress Note ---
Date of Encounter: 03/13/19 Time of Encounter: 15:55 - Assessment and plan (1) Near syncope Current Visit: No Status: Acute Assessment and plan: March 05. Etiology undetermined. Orthostatic vital signs not yet recorded. Continue to monitor. March 13. No further episodes. Continue to monitor. (2) Hypertension Current Visit: No Status: Chronic Assessment and plan: March 05. Continue Toprol-XL. Qualifiers: Hypertension type: essential hypertension Qualified Code(s): I10 - Essential (primary) hypertension (3) Anemia Current Visit: No Status: Chronic Assessment and plan: March 05. Anemia testing showed iron 38, transferrin saturation 11%, transferrin 258, ferritin 13, B12 400, and folate 4.9. Start ferrous sulfate with ascorbic acid in a.m. March 08. Continue ferrous sulfate with ascorbic acid. March 10. Hemoglobin slightly decreased to 10.2. Continue ferrous sulfate with ascorbic acid and monitor CBC periodically. March 11. Recheck labs in a.m. March 13. Hemoglobin slightly decreased at 9.8 yesterday. Recheck labs in a.m. Qualifiers: Anemia type: unspecified type Qualified Code(s): D64.9 - Anemia, u nspecified (4) Headache Current Visit: No Status: Acute Assessment and plan: March 05. Posttraumatic. Continue Percocet as needed. Qualifiers: Headache type: unspecified Headache chronicity pattern: acute headache Intractability: intractable Qualified Code(s): R51 - Headache (5) Left shoulder pain Current Visit: Yes Status: Acute Assessment and plan: March 05. MRI showed no fracture or rotator cuff injury. Will refer to [facility] for further evaluation March 08. She was seen by bone and joint staff today and referred for consideration for shoulder surgery. March 10. Continue topical BenGay and prn Percocet. Appointment with orthopedist 03/13/2019. Qualifiers: Chronicity: acute Qualified Code(s): M25.512 - Pain in left shoulder (6) Viral URI Current Visit: Yes Status: Acute Assessment and plan: March 10. Pro-calcitonin level 0.02. Chest x-ray unremarkable. She will be given Cepacol lozenges for symptomatic relief of sore throat. March 11. Recheck labs and chest x-ray. March 13. Continue symptomatic Rx (7) Diastolic heart failure Current Visit: Yes Status: Acute Assessment and plan: March 10. BN peptide slightly elevated at 208. Echocardiogram 02/25/2019 showed LVEF of 55%. Start low-dose Bumex and continue Toprol-XL. March 11. Continue present Rx and recheck labs in a.m. Qualifiers: Heart failure chronicity: acute on chronic Qualified Code(s): I50.33 - Acute on chronic diastolic (congestive) heart failure - Subjective Interval history: March 05. She has no new complaints. She reports her headache and shoulder pain have lessened. March 08. She has no new complaints. March 10. She feels slightly dyspneic and has sore throat. March 11. She has no new complaints. She states she is slightly dyspneic and does not feel well overall. March 13. No new problems have arisen. She states she saw the orthopedist and was told she could have shoulder surgery as soon as she is medically improved f rom her bronchitis. - Constitutional Vitals: Temp Pulse Resp BP Pulse Ox 98.6 F 74 16 147/84 94 03/13/19 07:12 03/13/19 07:12 03/13/19 14:37 03/13/19 07:12 03/13/19 14:37 Exam: She is resting comfortably in a chair at bedside and appears in no acute distress. Her affect is overall cheerful. I reviewed her medications and lab results. Internal Medicine: Result - Labs CBC & Chem 7: 03/12/19 04:50 03/12/19 04:50 Consult Discharge Plan - Plan Referrals: NONE,PCP [Primary Care Provider] - 1 week
[2019-03-14] MEDS: Albuterol 2.5 MG/3 ML NEBULIZER IH PRN ×3 (01:55→17:43)
[2019-03-14 05:52] LABS: Basophils % 0.4 %; Eosinophils # 0.4 K/mcL (0.0-0.6); Eosinophils % 4.6 %; Hematocrit 31.2 % (35.3-44.9); Hemoglobin 9.8 g/dL (11.5-15.4); Immature Granulocytes % 0.3 % (0-4); Lymphocytes # 2.5 K/mcL (0.6-4.6); Lymphocytes % 32.6 %; Mean Corpuscular HGB Conc 31.4 g/dL (31.6-35.5); Mean Corpuscular Hemoglobin 28.9 pg (28.0-33.3); Mean Platelet Volume 9.7 fL (9.4-12.4); Monocytes # 0.6 K/mcL (0.0-1.3); Monocytes % 8.2 %; Neutrophils # 4.1 K/mcL (1.6-8.9); Platelet Count 251 K/mcL (140-400); Red Blood Count 3.39 M/mcL (3.82-4.97); Red Cell Distribution Width 13.8 % (11.5-14.5); Segmented Neutrophils % 53.9 %; White Blood Count 7.6 K/mcL (4.3-11.1)
[2019-03-14] MEDS: *HR* OxyCODONE/APAP 5/325 TABLET PO PRN ×4 (05:52→21:14)
[2019-03-14] MEDS: ALPRAZolam 0.25 MG TABLET PO PRN ×4 (05:52→21:13)
[2019-03-14] MEDS: Ascorbic Acid 500 MG TABLET PO SCH (05:52)
[2019-03-14 06:18] LABS: BUN/Creatinine Ratio 26 (6-26); Blood Urea Nitrogen 20 mg/dL (8-23); Calcium 8.9 mg/dL (8.6-10.3); Carbon Dioxide 31 mEq/L (23-29); Chloride 100 mEq/L (98-107); Glucose 112 mg/dL (70-105); Magnesium 2.3 mg/dL (1.6-2.6); Osmolality,Calculated 295 (280-300); Potassium 3.4 mEq/L (3.5-5.1); Sodium 141 mEq/L (136-145); eGFR For African Americans > 60 (> 60); eGFR For Non-African Americans > 60 (> 60)
[2019-03-14] MEDS: Cholecalciferol (D-3) 1,000 UNIT (25MCG) TABLET PO SCH (08:52)
[2019-03-14] MEDS: Aspirin Enteric Coated 81 MG Tablet PO SCH (08:52)
[2019-03-14] MEDS: Gabapentin 300 MG CAPSULE PO SCH ×3 (08:53→21:13)
[2019-03-14] MEDS: Magnesium Oxide 400 MG TABLET PO SCH ×2 (08:53→21:13)
[2019-03-14] MEDS: Metoprolol XL (24 HR) Succ 25 MG TAB.ER.24H PO SCH (10:16)
[2019-03-14] MEDS: Bumetanide 1 MG TABLET PO SCH (10:16)
[2019-03-14] MEDS: Methyl Salicylate/Menthol 28 GM TUBE TP SCH ×2 (10:16→18:12)
[2019-03-14] MEDS: Isosorbide MONOnitrate (24 HR) 60 MG TAB.ER.24H PO SCH (10:17)
[2019-03-15] MEDS: Albuterol 2.5 MG/3 ML NEBULIZER IH PRN ×6 (01:59→22:49)
[2019-03-15] MEDS: Ascorbic Acid 500 MG TABLET PO SCH (05:40)
[2019-03-15] MEDS: ALPRAZolam 0.25 MG TABLET PO PRN ×3 (06:19→19:00)
[2019-03-15] MEDS: *HR* OxyCODONE/APAP 5/325 TABLET PO PRN ×3 (06:20→19:00)
[2019-03-15] MEDS: Bumetanide 1 MG TABLET PO SCH (10:12)
[2019-03-15] MEDS: Isosorbide MONOnitrate (24 HR) 60 MG TAB.ER.24H PO SCH (10:12)
[2019-03-15] MEDS: Metoprolol XL (24 HR) Succ 25 MG TAB.ER.24H PO SCH (10:12)
[2019-03-15] MEDS: Aspirin Enteric Coated 81 MG Tablet PO SCH (10:12)
[2019-03-15] MEDS: Cholecalciferol (D-3) 1,000 UNIT (25MCG) TABLET PO SCH (10:15)
[2019-03-15] MEDS: Methyl Salicylate/Menthol 28 GM TUBE TP SCH ×2 (10:17→21:34)
[2019-03-15] MEDS: Gabapentin 300 MG CAPSULE PO SCH ×3 (10:17→21:33)
[2019-03-15] MEDS: Magnesium Oxide 400 MG TABLET PO SCH ×2 (10:17→21:33)
--- NOTE | 2019-03-15 18:10 | Event Note ---
Date of Encounter: 03/15/19 Time of Encounter: 18:08 Called to bedside by respiratory therapist for persistent expiratory wheeze and cough. Pt reports 1-2 week history of cough and wheeze with increased SOB and yellow-green sputum. CXR ordered and without consolidation or pulmonary edema, similar to prior. Pt was in no apparent distress and with moderate expiratory wheeze throughout with fairly good air movement. No crackles. Will place on doxy and prednisone for acute bronchitis with bronchospasm. Continue respiratory therapy.
[2019-03-15] MEDS: predniSONE 20 MG TABLET PO SCH (19:00)
[2019-03-15] MEDS: Doxycycline 100 MG CAPSULE PO SCH (21:33)
[2019-03-16] MEDS: *HR* OxyCODONE/APAP 5/325 TABLET PO PRN ×4 (01:35→19:43)
[2019-03-16] MEDS: ALPRAZolam 0.25 MG TABLET PO PRN ×4 (01:35→19:43)
[2019-03-16] MEDS: Albuterol 2.5 MG/3 ML NEBULIZER IH PRN ×3 (01:52→09:07)
[2019-03-16] MEDS: Nitroglycerin 0.4 MG TAB.SUBL SL PRN ×3 (05:03→05:40)
[2019-03-16] MEDS: Ascorbic Acid 500 MG TABLET PO SCH (06:33)
[2019-03-16] MEDS: Bumetanide 1 MG TABLET PO SCH (10:06)
[2019-03-16] MEDS: Aspirin Enteric Coated 81 MG Tablet PO SCH (10:06)
[2019-03-16] MEDS: predniSONE 20 MG TABLET PO SCH (10:07)
[2019-03-16] MEDS: Gabapentin 300 MG CAPSULE PO SCH ×3 (10:07→20:03)
[2019-03-16] MEDS: Doxycycline 100 MG CAPSULE PO SCH ×2 (10:07→20:03)
[2019-03-16] MEDS: Isosorbide MONOnitrate (24 HR) 60 MG TAB.ER.24H PO SCH (10:07)
[2019-03-16] MEDS: Cholecalciferol (D-3) 1,000 UNIT (25MCG) TABLET PO SCH (10:07)
[2019-03-16] MEDS: Metoprolol XL (24 HR) Succ 25 MG TAB.ER.24H PO SCH (10:07)
[2019-03-16] MEDS: Magnesium Oxide 400 MG TABLET PO SCH ×2 (10:07→20:03)
[2019-03-16] MEDS: Methyl Salicylate/Menthol 28 GM TUBE TP SCH ×2 (10:08→20:05)
[2019-03-16] MEDS: Acetaminophen 325 MG TABLET PO PRN (10:09)
[2019-03-17] MEDS: ALPRAZolam 0.25 MG TABLET PO PRN ×4 (00:19→21:00)
[2019-03-17] MEDS: *HR* OxyCODONE/APAP 5/325 TABLET PO PRN ×4 (00:19→21:00)
[2019-03-17] MEDS: Ascorbic Acid 500 MG TABLET PO SCH (05:35)
[2019-03-17] MEDS: Bumetanide 1 MG TABLET PO SCH (10:30)
[2019-03-17] MEDS: Aspirin Enteric Coated 81 MG Tablet PO SCH (10:31)
[2019-03-17] MEDS: Doxycycline 100 MG CAPSULE PO SCH ×2 (10:31→20:57)
[2019-03-17] MEDS: Methyl Salicylate/Menthol 28 GM TUBE TP SCH ×2 (10:31→21:04)
[2019-03-17] MEDS: Gabapentin 300 MG CAPSULE PO SCH ×3 (10:33→20:57)
[2019-03-17] MEDS: predniSONE 20 MG TABLET PO SCH (10:33)
[2019-03-17] MEDS: Isosorbide MONOnitrate (24 HR) 60 MG TAB.ER.24H PO SCH (10:33)
[2019-03-17] MEDS: Cholecalciferol (D-3) 1,000 UNIT (25MCG) TABLET PO SCH (10:33)
[2019-03-17] MEDS: Magnesium Oxide 400 MG TABLET PO SCH ×2 (10:33→20:57)
[2019-03-17] MEDS: Metoprolol XL (24 HR) Succ 25 MG TAB.ER.24H PO SCH (10:33)
[2019-03-18] MEDS: *HR* OxyCODONE/APAP 5/325 TABLET PO PRN ×4 (06:03→20:16)
[2019-03-18] MEDS: ALPRAZolam 0.25 MG TABLET PO PRN ×4 (06:03→20:15)
[2019-03-18] MEDS: Ascorbic Acid 500 MG TABLET PO SCH (06:03)
[2019-03-18] MEDS: Aspirin Enteric Coated 81 MG Tablet PO SCH (08:59)
[2019-03-18] MEDS: Bumetanide 1 MG TABLET PO SCH (08:59)
[2019-03-18] MEDS: Doxycycline 100 MG CAPSULE PO SCH (08:59)
[2019-03-18] MEDS: Isosorbide MONOnitrate (24 HR) 60 MG TAB.ER.24H PO SCH (08:59)
[2019-03-18] MEDS: predniSONE 20 MG TABLET PO SCH (09:00)
[2019-03-18] MEDS: Acetaminophen 325 MG TABLET PO PRN (09:00)
[2019-03-18] MEDS: Gabapentin 300 MG CAPSULE PO SCH ×3 (09:00→20:15)
[2019-03-18] MEDS: Metoprolol XL (24 HR) Succ 25 MG TAB.ER.24H PO SCH (09:00)
[2019-03-18] MEDS: Magnesium Oxide 400 MG TABLET PO SCH ×2 (09:00→20:16)
[2019-03-18] MEDS: Cholecalciferol (D-3) 1,000 UNIT (25MCG) TABLET PO SCH (09:00)
[2019-03-18] MEDS: Methyl Salicylate/Menthol 28 GM TUBE TP SCH ×2 (09:01→20:17)
--- NOTE | 2019-03-18 15:48 | Electrocardiograph Report ---
[address] [address] Test Date: 2019-03-16 Pat Name: Akosua Kelly Department: [id number] Room: [facility] Gender: F Physiotherapy Aide: SERA : 1950 Requested By: Rock Peterson Order Number: [id number] Reading MD: Dwight Kaiser Measurements Intervals [place] Rate: 102 P: 222 MS: 233 QRS: 4 QRSD: 81 T: 24 QT: 359 QTc: 418 Interpretive Statements SINUS TACHYCARDIA WITH FIRST DEGREE AV BLOCK LOW QRS VOLTAGE IN PRECORDIAL LEADS [QRS DEFLECTION < 1.0 mV IN CHEST LEADS] Electronically Signed On 03-18-2019 15:46:54 EDT by Dwight Kaiser
--- NOTE | 2019-03-18 18:39 | Internal Med Progress Note ---
Date of Encounter: 03/18/19 Time of Encounter: 18:30 - Assessment and plan (1) Near syncope Current Visit: No Status: Acute Assessment and plan: March 05. Etiology undetermined. Orthostatic vital signs not yet recorded. Continue to monitor. March 13. No further episodes. Continue to monitor. (2) Hypertension Current Visit: No Status: Chronic Assessment and plan: March 05. Continue Toprol-XL. Qualifiers: Hypertension type: essential hypertension Qualified Code(s): I10 - Essential (primary) hypertension (3) Anemia Current Visit: No Status: Chronic Assessment and plan: March 05. Anemia testing showed iron 38, transferrin saturation 11%, transferrin 258, ferritin 13, B12 400, and folate 4.9. Start ferrous sulfate with ascorbic acid in a.m. March 08. Continue ferrous sulfate with ascorbic acid. March 10. Hemoglobin slightly decreased to 10.2. Continue ferrous sulfate with ascorbic acid and monitor CBC periodically. March 11. Recheck labs in a.m. March 13. Hemoglobin slightly decreased at 9.8 yesterday. Recheck labs in a.m. March 18. Recheck labs in a.m. Qualifiers: Anemia type: unspecified type Qualified Code(s): D64.9 - Anemia, unspecified (4) Headache Current Visit: No Status: Acute Assessment and plan: March 05. Posttraumatic. Continue Percocet as needed. Qualifiers: Headache type: unspecified Headache chronicity pattern: acute headache Intractability: intractable Qualified Code(s): R51 - Headache (5) Left shoulder pain Current Visit: Yes Status: Acute Assessment and plan: March 05. MRI showed no fracture or rotator cuff injury. Will refer to [facility] for further evaluation March 08. She was seen by bone and joint staff today and referred for consideration for shoulder surgery. March 10. Continue topical BenGay and prn Percocet. Appointment with orthopedist 03/13/2019. March 18. The orthopedist feels TSR is needed. Present date for surgery is April 03. Cardiac clearance will be needed. Attempt to move surgery day closer will be pursued. Qualifiers: Chronicity: acute Qualified Code(s): M25.512 - Pain in left shoulder (6) Viral URI Current Visit: Yes Status: Acute Assessment and plan: March 10. Pro-calcitonin level 0.02. Chest x-ray unremarkable. She will be given Cepacol lozenges for symptomatic relief of sore throat. March 11. Recheck labs and chest x-ray. March 13. Continue symptomatic Rx March 18. Discontinue doxycycline and decrease prednisone. Start Symbicort. Pro-calcitonin levels consistently WNL. (7) Diastolic heart failure Current Visit: Yes Status: Acute Assessment and plan: March 10. BN peptide slightly elevated at 208. Echocardiogram 02/25/2019 showed LVEF of 55%. Start low-dose Bumex and continue Toprol-XL. March 11. Continue present Rx and recheck labs in a.m. March 18. BN peptide normal at 47 on March 14. Continue present Rx. Qualifiers: Heart failure chronicity: acute on chronic Qualified Code(s): I50.33 - A cute on chronic diastolic (congestive) heart failure - Subjective Interval history: March 05. She has no new complaints. She reports her headache and shoulder pain have lessened. March 08. She has no new complaints. March 10. She feels slightly dyspneic and has sore throat. March 11. She has no new complaints. She states she is slightly dyspneic and does not feel well overall. March 13. No new problems have arisen. She states she saw the orthopedist and was told she could have shoulder surgery as soon as she is medically improved from her bronchitis. March 18. She developed worsening dyspnea evening of March 15. Dr. Peterson started her on prednisone and doxycycline for possible bronchitis. She states her breathing is slightly improved. - Constitutional Vitals: Temp Pulse Resp BP Pulse Ox 97.9 F 79 12 129/74 96 03/18/19 06:58 03/18/19 06:58 03/18/19 09:01 03/18/19 06:58 03/18/19 09:01 Exam: She is resting comfortably in bed and appears in no acute distress. Her affect is cheerful. She has no peripheral expiratory wheezing. There is expiratory wheezing heard in the upper mid sternal area over the trachea. No infarct or crackles are heard. Extremities show no edema. I reviewed her medications and lab results. Internal Medicine: Result - Labs CBC & Chem 7: 03/14/19 05:44 03/14/19 05:44 Consult Discharge Plan - Plan Referrals: NONE,PCP [Primary Care Provider] - 1 week
[2019-03-18] MEDS: Budesonide/Formoterol 160/4.5 1 PUFF INH IH SCH (22:13)
[2019-03-19] MEDS: Ascorbic Acid 500 MG TABLET PO SCH (06:07)
[2019-03-19 07:32] LABS: Eosinophils % 0.3 %; Hematocrit 30.5 % (35.3-44.9); Hemoglobin 9.1 g/dL (11.5-15.4); Immature Granulocytes % 2.5 % (0-4); Lymphocytes % 26.7 %; Mean Corpuscular HGB Conc 29.8 g/dL (31.6-35.5); Mean Corpuscular Hemoglobin 28.6 pg (28.0-33.3); Mean Corpuscular Volume 95.9 fL (83.0-100.0); Mean Platelet Volume 9.8 fL (9.4-12.4); Platelet Count 299 K/mcL (140-400); Red Blood Count 3.18 M/mcL (3.82-4.97); Red Cell Distribution Width 14.2 % (11.5-14.5); Segmented Neutrophils % 61.2 %; White Blood Count 11.4 K/mcL (4.3-11.1)
[2019-03-19 07:33] LABS: Basophils % 0.3 %
[2019-03-19 07:59] LABS: BUN/Creatinine Ratio 29 (6-26); Blood Urea Nitrogen 24 mg/dL (8-23); Calcium 8.4 mg/dL (8.6-10.3); Carbon Dioxide 33 mEq/L (23-29); Chloride 105 mEq/L (98-107); Glucose 97 mg/dL (70-105); Magnesium 2.4 mg/dL (1.6-2.6); Osmolality,Calculated 298 (280-300); Potassium 4.4 mEq/L (3.5-5.1); Sodium 142 mEq/L (136-145); eGFR For African Americans > 60 (> 60); eGFR For Non-African Americans > 60 (> 60)
[2019-03-19] MEDS: Gabapentin 300 MG CAPSULE PO SCH ×3 (08:45→21:39)
[2019-03-19] MEDS: Aspirin Enteric Coated 81 MG Tablet PO SCH (08:45)
[2019-03-19] MEDS: Bumetanide 1 MG TABLET PO SCH (08:45)
[2019-03-19] MEDS: Metoprolol XL (24 HR) Succ 25 MG TAB.ER.24H PO SCH (08:46)
[2019-03-19] MEDS: predniSONE 20 MG TABLET PO SCH (08:46)
[2019-03-19] MEDS: Magnesium Oxide 400 MG TABLET PO SCH ×2 (08:46→21:39)
[2019-03-19] MEDS: Isosorbide MONOnitrate (24 HR) 60 MG TAB.ER.24H PO SCH (08:46)
[2019-03-19] MEDS: Cholecalciferol (D-3) 1,000 UNIT (25MCG) TABLET PO SCH (08:47)
[2019-03-19] MEDS: ALPRAZolam 0.25 MG TABLET PO PRN ×3 (08:51→18:46)
[2019-03-19] MEDS: *HR* OxyCODONE/APAP 5/325 TABLET PO PRN ×3 (08:51→18:46)
[2019-03-19] MEDS: Methyl Salicylate/Menthol 28 GM TUBE TP SCH ×2 (08:53→21:43)
[2019-03-19] MEDS: Budesonide/Formoterol 160/4.5 1 PUFF INH IH SCH ×2 (09:21→21:47)
[2019-03-19 15:52] LABS: Bilirubin,Urine Negative (Negative); Blood,Urine Negative (Negative); Clarity,Urine Clear (Clear); Color,Urine Yellow (Yellow); Glucose,Urine (UA) Normal (Normal); Ketones,Urine Negative (Negative); Leukocyte Esterase,Urine Trace (Negative); Nitrite,Urine Negative (Negative); Protein,Urine Negative (Neg-Trace); Urobilinogen,Urine Normal (Normal)
[2019-03-19 16:11] LABS: Bacteria,Urine Moderate per hpf (None-Few); Squamous Epithelial Cell,Urine Moderate per lpf (None-Few)
[2019-03-20] MEDS: *HR* OxyCODONE/APAP 5/325 TABLET PO PRN ×4 (06:16→20:09)
[2019-03-20] MEDS: ALPRAZolam 0.25 MG TABLET PO PRN ×4 (06:17→20:08)
[2019-03-20] MEDS: Ascorbic Acid 500 MG TABLET PO SCH (06:17)
[2019-03-20] MEDS: Budesonide/Formoterol 160/4.5 1 PUFF INH IH SCH ×2 (07:47→21:59)
[2019-03-20] MEDS: Bumetanide 1 MG TABLET PO SCH (11:09)
[2019-03-20] MEDS: Cholecalciferol (D-3) 1,000 UNIT (25MCG) TABLET PO SCH (11:09)
[2019-03-20] MEDS: Aspirin Enteric Coated 81 MG Tablet PO SCH (11:09)
[2019-03-20] MEDS: Gabapentin 300 MG CAPSULE PO SCH ×3 (11:09→20:09)
[2019-03-20] MEDS: Metoprolol XL (24 HR) Succ 25 MG TAB.ER.24H PO SCH (11:09)
[2019-03-20] MEDS: predniSONE 20 MG TABLET PO SCH (11:10)
[2019-03-20] MEDS: Magnesium Oxide 400 MG TABLET PO SCH ×2 (11:10→20:08)
[2019-03-20] MEDS: Isosorbide MONOnitrate (24 HR) 60 MG TAB.ER.24H PO SCH (11:10)
[2019-03-20] MEDS: Methyl Salicylate/Menthol 28 GM TUBE TP SCH ×2 (13:59→20:10)
[2019-03-21] MEDS: ALPRAZolam 0.25 MG TABLET PO PRN ×5 (00:19→19:40)
[2019-03-21] MEDS: *HR* OxyCODONE/APAP 5/325 TABLET PO PRN ×5 (00:19→19:40)
[2019-03-21] MEDS: Ascorbic Acid 500 MG TABLET PO SCH (05:33)
[2019-03-21] MEDS: Gabapentin 300 MG CAPSULE PO SCH ×3 (09:43→19:39)
[2019-03-21] MEDS: Cholecalciferol (D-3) 1,000 UNIT (25MCG) TABLET PO SCH (09:44)
[2019-03-21] MEDS: predniSONE 20 MG TABLET PO SCH (09:44)
[2019-03-21] MEDS: Bumetanide 1 MG TABLET PO SCH (09:44)
[2019-03-21] MEDS: Isosorbide MONOnitrate (24 HR) 60 MG TAB.ER.24H PO SCH (09:44)
[2019-03-21] MEDS: Magnesium Oxide 400 MG TABLET PO SCH ×2 (09:44→19:40)
[2019-03-21] MEDS: Methyl Salicylate/Menthol 28 GM TUBE TP SCH ×2 (09:45→19:41)
[2019-03-21] MEDS: Aspirin Enteric Coated 81 MG Tablet PO SCH (09:45)
[2019-03-21] MEDS: Metoprolol XL (24 HR) Succ 25 MG TAB.ER.24H PO SCH (09:45)
[2019-03-21] MEDS: Budesonide/Formoterol 160/4.5 1 PUFF INH IH SCH ×2 (09:54→22:23)
--- NOTE | 2019-03-21 13:12 | Internal Med Progress Note ---
Date of Encounter: 03/21/19 Time of Encounter: 13:05 - Assessment and plan (1) Near syncope Current Visit: No Status: Acute Assessment and plan: March 05. Etiology undetermined. Orthostatic vital signs not yet recorded. Continue to monitor. March 13. No further episodes. Continue to monitor. (2) Hypertension Current Visit: No Status: Chronic Assessment and plan: March 05. Continue Toprol-XL. Qualifiers: Hypertension type: essential hypertension Qualified Code(s): I10 - Essential (primary) hypertension (3) Anemia Current Visit: No Status: Chronic Assessment and plan: March 05. Anemia testing showed iron 38, transferrin saturation 11%, transferrin 258, ferritin 13, B12 400, and folate 4.9. Start ferrous sulfate with ascorbic acid in a.m. March 08. Continue ferrous sulfate with ascorbic acid. March 10. Hemoglobin slightly decreased to 10.2. Continue ferrous sulfate with ascorbic acid and monitor CBC periodically. March 11. Recheck labs in a.m. March 13. Hemoglobin slightly decreased at 9.8 yesterday. Recheck labs in a.m. March 18. Recheck labs in a.m. March 21. Hemoglobin slightly decreased at 9.1 on 03/19/2019. Recheck labs in a.m. Qualifiers: Anemia type: unspecified type Qualified Code(s): D64.9 - Anemia, unspecified (4) Headache Current Visit: No Status: Acute Assessment and plan: March 05. Posttraumatic. Continue Percocet as needed. Qualifiers: Headache type: unspecified Headache chronicity pattern: acute headache I ntractability: intractable Qualified Code(s): R51 - Headache (5) Left shoulder pain Current Visit: Yes Status: Acute Assessment and plan: March 05. MRI showed no fracture or rotator cuff injury. Will refer to [facility] for further evaluation March 08. She was seen by bone and joint staff today and referred for consideration for shoulder surgery. March 10. Continue topical BenGay and prn Percocet. Appointment with orthopedist 03/13/2019. March 18. The orthopedist feels TSR is needed. Present date for surgery is April 03. Cardiac clearance will be needed. Attempt to move surgery day closer will be pursued. Qualifiers: Chronicity: acute Qualified Code(s): M25.512 - Pain in left shoulder (6) Viral URI Current Visit: Yes Status: Acute Assessment and plan: March 10. Pro-calcitonin level 0.02. Chest x-ray unremarkable. She will be given Cepacol lozenges for symptomatic relief of sore throat. March 11. Recheck labs and chest x-ray. March 13. Continue symptomatic Rx March 18. Discontinue doxycycline and decrease prednisone. Start Symbicort. Pro-calcitonin levels consistently WNL. March 21. Decrease prednisone to 10 mg daily. (7) Diastolic heart failure Current Visit: Yes Status: Acute Assessment and plan: March 10. BN peptide slightly elevated at 208. Echocardiogram 02/25/2019 showed LVEF of 55%. Start low-dose Bumex and continue Toprol-XL. March 11. Continue present Rx and recheck labs in a.m. March 18. BN peptide normal at 47 on March 14. Continue present Rx. March 21. BN peptide slightly higher at 204 on 03/19/2019. Recheck in a.m. Qualifiers: Heart failure chronicity: acute on chronic Qualified Code(s): I50.33 - Acute on chronic diastolic (congestive) heart failure - Subjective Interval history: March 05. She has no new complaints. She reports her headache and shoulder pain have lessened. March 08. She has no new complaints. March 10. She feels slightly dyspneic and has sore throat. March 11. She has no new complaints. She states she is slightly dyspneic and does not feel well overall. March 13. No new problems have arisen. She states she saw the orthopedist and was told she could have shoulder surgery as soon as she is medically improved from her bronchitis. March 18. She developed worsening dyspnea evening of March 15. Dr. Peterson started her on prednisone and doxycycline for possible bronchitis. She states her breathing is slightly improved. March. She states she does not feel well but has no specific complaints. - Constitutional Vitals: Temp Pulse Resp BP Pulse Ox 98.4 F 75 16 114/63 95 03/21/19 07:05 03/21/19 07:05 03/21/19 09:54 03/21/19 07:05 03/21/19 09:54 Exam: She is resting comfortably in bed and appears in no acute distress. Her affect is overall cheerful. Reviewed her medications and lab results. Internal Medicine: Result - Labs CBC & Chem 7: 03/19/19 06:40 03/19/19 06:40 Consult Discharge Plan - Plan Referrals: NONE,PCP [Primary Care Provider] - 1 week
[2019-03-22] MEDS: *HR* OxyCODONE/APAP 5/325 TABLET PO PRN ×5 (01:18→20:41)
[2019-03-22] MEDS: ALPRAZolam 0.25 MG TABLET PO PRN ×5 (01:19→20:42)
[2019-03-22] MEDS: Ascorbic Acid 500 MG TABLET PO SCH (05:58)
[2019-03-22 06:01] LABS: Basophils % 0.2 %; Eosinophils % 0.3 %; Hematocrit 30.1 % (35.3-44.9); Lymphocytes # 2.2 K/mcL (0.6-4.6); Lymphocytes % 19.5 %; Mean Corpuscular HGB Conc 29.9 g/dL (31.6-35.5); Mean Corpuscular Hemoglobin 28.7 pg (28.0-33.3); Mean Corpuscular Volume 95.9 fL (83.0-100.0); Monocytes # 0.8 K/mcL (0.0-1.3); Monocytes % 7.3 %; Platelet Count 276 K/mcL (140-400); Red Blood Count 3.14 M/mcL (3.82-4.97); Red Cell Distribution Width 14.6 % (11.5-14.5); Segmented Neutrophils % 70.7 %; White Blood Count 11.4 K/mcL (4.3-11.1)
[2019-03-22 06:22] LABS: BUN/Creatinine Ratio 33 (6-26); Blood Urea Nitrogen 27 mg/dL (8-23); Calcium 8.2 mg/dL (8.6-10.3); Carbon Dioxide 30 mEq/L (23-29); Chloride 103 mEq/L (98-107); Glucose 138 mg/dL (70-105); Osmolality,Calculated 297 (280-300); Potassium 4.3 mEq/L (3.5-5.1); Sodium 140 mEq/L (136-145); eGFR For African Americans > 60 (> 60); eGFR For Non-African Americans > 60 (> 60)
[2019-03-22 07:08] LABS: Neutrophils # 8.1 K/mcL (1.6-8.9)
[2019-03-22] MEDS: Cholecalciferol (D-3) 1,000 UNIT (25MCG) TABLET PO SCH (10:02)
[2019-03-22] MEDS: Gabapentin 300 MG CAPSULE PO SCH ×3 (10:02→20:41)
[2019-03-22] MEDS: Metoprolol XL (24 HR) Succ 25 MG TAB.ER.24H PO SCH (10:03)
[2019-03-22] MEDS: Bumetanide 1 MG TABLET PO SCH (10:03)
[2019-03-22] MEDS: Magnesium Oxide 400 MG TABLET PO SCH ×2 (10:03→20:42)
[2019-03-22] MEDS: Aspirin Enteric Coated 81 MG Tablet PO SCH (10:03)
[2019-03-22] MEDS: Isosorbide MONOnitrate (24 HR) 60 MG TAB.ER.24H PO SCH (10:03)
[2019-03-22] MEDS: predniSONE 20 MG TABLET PO SCH (10:04)
[2019-03-22] MEDS: Methyl Salicylate/Menthol 28 GM TUBE TP SCH ×2 (10:04→20:41)
[2019-03-22] MEDS: Budesonide/Formoterol 160/4.5 1 PUFF INH IH SCH ×2 (10:29→22:06)
[2019-03-23] MEDS: Ascorbic Acid 500 MG TABLET PO SCH (06:41)
[2019-03-23] MEDS: Budesonide/Formoterol 160/4.5 1 PUFF INH IH SCH ×2 (06:51→18:47)
[2019-03-23] MEDS: Isosorbide MONOnitrate (24 HR) 60 MG TAB.ER.24H PO SCH (09:13)
[2019-03-23] MEDS: predniSONE 20 MG TABLET PO SCH (09:16)
[2019-03-23] MEDS: Cholecalciferol (D-3) 1,000 UNIT (25MCG) TABLET PO SCH (09:17)
[2019-03-23] MEDS: Gabapentin 300 MG CAPSULE PO SCH ×3 (09:17→20:39)
[2019-03-23] MEDS: Bumetanide 1 MG TABLET PO SCH (09:18)
[2019-03-23] MEDS: Magnesium Oxide 400 MG TABLET PO SCH ×2 (09:18→20:39)
[2019-03-23] MEDS: Aspirin Enteric Coated 81 MG Tablet PO SCH (09:18)
[2019-03-23] MEDS: Metoprolol XL (24 HR) Succ 25 MG TAB.ER.24H PO SCH (09:19)
[2019-03-23] MEDS: Methyl Salicylate/Menthol 28 GM TUBE TP SCH ×2 (09:20→20:39)
[2019-03-23] MEDS: *HR* OxyCODONE/APAP 5/325 TABLET PO PRN ×3 (11:20→20:39)
[2019-03-23] MEDS: ALPRAZolam 0.25 MG TABLET PO PRN ×3 (11:20→20:39)
[2019-03-24] MEDS: Ascorbic Acid 500 MG TABLET PO SCH (06:55)
[2019-03-24] MEDS: Budesonide/Formoterol 160/4.5 1 PUFF INH IH SCH ×2 (07:03→18:27)
[2019-03-24] MEDS: Bumetanide 1 MG TABLET PO SCH (09:16)
[2019-03-24] MEDS: Isosorbide MONOnitrate (24 HR) 60 MG TAB.ER.24H PO SCH (09:16)
[2019-03-24] MEDS: *HR* OxyCODONE/APAP 5/325 TABLET PO PRN ×3 (09:16→20:04)
[2019-03-24] MEDS: Gabapentin 300 MG CAPSULE PO SCH ×3 (09:16→20:05)
[2019-03-24] MEDS: ALPRAZolam 0.25 MG TABLET PO PRN ×3 (09:16→20:05)
[2019-03-24] MEDS: Aspirin Enteric Coated 81 MG Tablet PO SCH (09:17)
[2019-03-24] MEDS: predniSONE 20 MG TABLET PO SCH (09:17)
[2019-03-24] MEDS: Methyl Salicylate/Menthol 28 GM TUBE TP SCH ×2 (09:17→20:06)
[2019-03-24] MEDS: Magnesium Oxide 400 MG TABLET PO SCH ×2 (09:17→20:05)
[2019-03-24] MEDS: Cholecalciferol (D-3) 1,000 UNIT (25MCG) TABLET PO SCH (09:17)
[2019-03-24] MEDS: Metoprolol XL (24 HR) Succ 25 MG TAB.ER.24H PO SCH (09:17)
--- NOTE | 2019-03-24 12:11 | Internal Med Progress Note ---
Date of Encounter: 03/24/19 Time of Encounter: 12:04 - Assessment and plan (1) Near syncope Current Visit: No Status: Acute Assessment and plan: March 05. Etiology undetermined. Orthostatic vital signs not yet recorded. Continue to monitor. March 13. No further episodes. Continue to monitor. (2) Hypertension Current Visit: No Status: Chronic Assessment and plan: March 05. Continue Toprol-XL. Qualifiers: Hypertension type: essential hypertension Qualified Code(s): I10 - Essential (primary) hypertension (3) Anemia Current Visit: No Status: Chronic Assessment and plan: March 05. Anemia testing showed iron 38, transferrin saturation 11%, transferrin 258, ferritin 13, B12 400, and folate 4.9. Start ferrous sulfate with ascorbic acid in a.m. March 08. Continue ferrous sulfate with ascorbic acid. March 10. Hemoglobin slightly decreased to 10.2. Continue ferrous sulfate with ascorbic acid and monitor CBC periodically. March 11. Recheck labs in a.m. March 13. Hemoglobin slightly decreased at 9.8 yesterday. Recheck labs in a.m. March 18. Recheck labs in a.m. March 21. Hemoglobin slightly decreased at 9.1 on 03/19/2019. Recheck labs in a.m. March 24. Hemoglobin minimally changed at 9.0 on 03/22/2019. Continue to monitor. Qualifiers: Anemia type: unspecified type Qualified Code(s): D64.9 - Anemia, uns pecified (4) Headache Current Visit: No Status: Acute Assessment and plan: March 05. Posttraumatic. Continue Percocet as needed. Qualifiers: Headache type: unspecified Headache chronicity pattern: acute headache Intractability: intractable Qualified Code(s): R51 - Headache (5) Left shoulder pain Current Visit: Yes Status: Acute Assessment and plan: March 05. MRI showed no fracture or rotator cuff injury. Will refer to [facility] for further evaluation March 08. She was seen by bone and joint staff today and referred for consideration for shoulder surgery. March 10. Continue topical BenGay and prn Percocet. Appointment with orthopedist 03/13/2019. March 18. The orthopedist feels TSR is needed. Present date for surgery is April 03. Cardiac clearance will be needed. Attempt to move surgery day closer will be pursued. March 24. Preoperative cardiac clearance evaluation tomorrow Qualifiers: Chronicity: acute Qualified Code(s): M25.512 - Pain in left shoulder (6) Viral URI Current Visit: Yes Status: Acute Assessment and plan: March 10. Pro-calcitonin level 0.02. Chest x-ray unremarkable. She will be given Cepacol lozenges for symptomatic relief of sore throat. March 11. Recheck labs and chest x-ray. March 13. Continue symptomatic Rx March 18. Discontinue doxycycline and decrease prednisone. Start Symbicort. Pro-calcitonin levels consistently WNL. March 21. Decrease prednisone to 10 mg daily. March 24. Discontinue prednisone. (7) Diastolic heart failure Current Visit: Yes Status: Acute Assessment and plan: March 10. BN peptide slightly elevated at 208. Echocardiogram 02/25/2019 showed LVEF of 55%. Start low-dose Bumex and continue Toprol-XL. March 11. Continue present Rx and recheck labs in a.m. March 18. BN peptide normal at 47 on March 14. Continue present Rx. March 21. BN peptide slightly higher at 204 on 03/19/2019. Recheck in a.m. March 24. BN peptide higher at 270 on March 22. Discontinue prednisone and continue to monitor. Qualifiers: Heart failure chronicity: acute on chronic Qualified Code(s): I50.33 - Acute on chronic diastolic (congestive) heart failure - Subjective Interval history: March 05. She has no new complaints. She reports her headache and shoulder pain have lessened. March 08. She has no new complaints. March 10. She feels slightly dyspneic and has sore throat. March 11. She has no new complaints. She states she is slightly dyspneic and does not feel well overall. March 13. No new problems have arisen. She states she saw the orthopedist and was told she could have shoulder surgery as soon as she is medically improved from her bronchitis. March 18. She developed worsening dyspnea evening of March 15. Dr. Peterson started her on prednisone and doxycycline for possible bronchitis. She states her breathing is slightly improved. March 21. She states she does not feel well but has no specific complaints. March 24. She has no new complaints. - Constitutional Vitals: Temp Pulse Resp BP Pulse Ox 98.2 F 71 18 130/64 95 03/24/19 06:54 03/24/19 06:54 03/24/19 07:05 03/24/19 06:54 03/24/19 07:05 Exam: She is resting comfortably in bed eating lunch. Her affect is bright and cheerful. I reviewed her medications and lab results. Internal Medicine: Result - Labs CBC & Chem 7: 03/22/19 05:16 03/22/19 05:16 Consult Discharge Plan - Plan Referrals: NONE,PCP [Primary Care Provider] - 1 week
[2019-03-25] MEDS: Ascorbic Acid 500 MG TABLET PO SCH (06:46)
[2019-03-25] MEDS: *HR* OxyCODONE/APAP 5/325 TABLET PO PRN ×4 (06:50→21:26)
[2019-03-25] MEDS: ALPRAZolam 0.25 MG TABLET PO PRN ×4 (06:50→21:26)
[2019-03-25] MEDS: Magnesium Oxide 400 MG TABLET PO SCH ×2 (08:37→21:26)
[2019-03-25] MEDS: Aspirin Enteric Coated 81 MG Tablet PO SCH (08:38)
[2019-03-25] MEDS: Bumetanide 1 MG TABLET PO SCH (08:38)
[2019-03-25] MEDS: Metoprolol XL (24 HR) Succ 25 MG TAB.ER.24H PO SCH (08:38)
[2019-03-25] MEDS: Gabapentin 300 MG CAPSULE PO SCH ×3 (08:38→21:26)
[2019-03-25] MEDS: Cholecalciferol (D-3) 1,000 UNIT (25MCG) TABLET PO SCH (08:38)
[2019-03-25] MEDS: Isosorbide MONOnitrate (24 HR) 60 MG TAB.ER.24H PO SCH (08:38)
[2019-03-25] MEDS: Budesonide/Formoterol 160/4.5 1 PUFF INH IH SCH ×2 (10:03→21:27)
[2019-03-25] MEDS: Methyl Salicylate/Menthol 28 GM TUBE TP SCH ×2 (11:06→21:27)
[2019-03-26] MEDS: Ascorbic Acid 500 MG TABLET PO SCH (06:37)
[2019-03-26] MEDS: *HR* OxyCODONE/APAP 5/325 TABLET PO PRN ×4 (06:41→22:14)
[2019-03-26] MEDS: ALPRAZolam 0.25 MG TABLET PO PRN ×4 (06:41→22:14)
[2019-03-26] MEDS: Methyl Salicylate/Menthol 28 GM TUBE TP SCH ×2 (09:46→22:15)
[2019-03-26] MEDS: Aspirin Enteric Coated 81 MG Tablet PO SCH (09:46)
[2019-03-26] MEDS: Gabapentin 300 MG CAPSULE PO SCH ×3 (09:46→22:15)
[2019-03-26] MEDS: Cholecalciferol (D-3) 1,000 UNIT (25MCG) TABLET PO SCH (09:47)
[2019-03-26] MEDS: Magnesium Oxide 400 MG TABLET PO SCH ×2 (09:47→22:15)
[2019-03-26] MEDS: Metoprolol XL (24 HR) Succ 25 MG TAB.ER.24H PO SCH (09:47)
[2019-03-26] MEDS: Isosorbide MONOnitrate (24 HR) 60 MG TAB.ER.24H PO SCH (09:47)
[2019-03-26] MEDS: Bumetanide 1 MG TABLET PO SCH (09:47)
[2019-03-26] MEDS: Acetaminophen 325 MG TABLET PO PRN (09:48)
[2019-03-26] MEDS: Budesonide/Formoterol 160/4.5 1 PUFF INH IH SCH ×2 (10:47→22:00)
--- NOTE | 2019-03-26 17:11 | Internal Med Progress Note ---
Date of Encounter: 03/26/19 Time of Encounter: 17:04 - Assessment and plan (1) Near syncope Current Visit: No Status: Acute Assessment and plan: March 05. Etiology undetermined. Orthostatic vital signs not yet recorded. Continue to monitor. March 13. No further episodes. Continue to monitor. (2) Hypertension Current Visit: No Status: Chronic Assessment and plan: March 05. Continue Toprol-XL. Qualifiers: Hypertension type: essential hypertension Qualified Code(s): I10 - Essential (primary) hypertension (3) Anemia Current Visit: No Status: Chronic Assessment and plan: March 05. Anemia testing showed iron 38, transferrin saturation 11%, transferrin 258, ferritin 13, B12 400, and folate 4.9. Start ferrous sulfate with ascorbic acid in a.m. March 08. Continue ferrous sulfate with ascorbic acid. March 10. Hemoglobin slightly decreased to 10.2. Continue ferrous sulfate with ascorbic acid and monitor CBC periodically. March 11. Recheck labs in a.m. March 13. Hemoglobin slightly decreased at 9.8 yesterday. Recheck labs in a.m. March 18. Recheck labs in a.m. March 21. Hemoglobin slightly decreased at 9.1 on 03/19/2019. Recheck labs in a.m. March 24. Hemoglobin minimally changed at 9.0 on 03/22/2019. Continue to monitor. March 26. Recheck labs in a.m. Qualifiers: Anemia type: unspecified type Qualified Code(s): D64.9 - Anemia, unspecified (4) Headache Current Visit: No Status: Acute Assessment and plan: March 05. Posttraumatic. Continue Percocet as needed. Qualifiers: Headache type: unspecified Headache chronicity pattern: acute headache Intractability: intractable Qualified Code(s): R51 - Headache (5) Left shoulder pain Current Visit: Yes Status: Acute Assessment and plan: March 05. MRI showed no fracture or rotator cuff injury. Will refer to [facility] for further evaluation March 08. She was seen by bone and joint staff today and referred for consideration for shoulder surgery. March 10. Continue topical BenGay and prn Percocet. Appointment with orthopedist 03/13/2019. March 18. The orthopedist feels TSR is needed. Present date for surgery is April 03. Cardiac clearance will be needed. Attempt to move surgery day closer will be pursued. March 24. Preoperative cardiac clearance evaluation tomorrow March 26. Preoperative cardiac clearance obtained yesterday. Surgery has been rescheduled for ldr nurse 03/29/2019. Qualifiers: Chronicity: acute Qualified Code(s): M25.512 - Pain in left shoulder (6) Viral URI Current Visit: Yes Status: Acute Assessment and plan: March 10. Pro-calcitonin level 0.02. Chest x-ray unremarkable. She will be given Cepacol lozenges for symptomatic relief of sore throat. March 11. Recheck labs and chest x-ray. March 13. Continue symptomatic Rx March 18. Discontinue doxycycline and decrease prednisone. Start Symbicort. Pro-calcitonin levels consistently WNL. March 21. Decrease prednisone to 10 mg daily. March 24. Discontinue prednisone. March 26. Dyspnea has resolved. Observe without further workup or treatment. (7) Diastolic heart failure Current Visit: Yes Status: Acute Assessment and plan: March 10. BN peptide slightly elevated at 208. Echocardiogram 02/25/2019 showed LVEF of 55%. Start low-dose Bumex and continue Toprol-XL. March 11. Continue present Rx and recheck labs in a.m. March 18. BN peptide normal at 47 on March 14. Continue present Rx. March 21. BN peptide slightly higher at 204 on 03/19/2019. Recheck in a.m. March 24. BN peptide higher at 270 on March 22. Discontinue prednisone and continue to monitor. March 26. Recheck labs in a.m. Qualifiers: Heart failure chronicity: acute on chronic Qualified Code(s): I50.33 - Acute on chronic diastolic (congestive) heart failure - Subjective Interval history: March 05. She has no new complaints. She reports her headache and shoulder pain have lessened. March 08. She has no new complaints. March 10. She feels slightly dyspneic and has sore throat. March 11. She has no new complaints. She states she is slightly dyspneic and does not feel well overall. March 13. No new problems have arisen. She states she saw the orthopedist and was told she could have shoulder surgery as soon as she is medically improved from her bronchitis. March 18. She developed worsening dyspnea evening of March 15. Dr. Peterson started her on prednisone and doxycycline for possible bronchitis. She states her breathing is slightly improved. March 21. She states she does not feel well but has no specific complaints. March 24. She has no new complaints. March 26. She has no new complaints. - Constitutional Vitals: Temp Pulse Resp BP Pulse Ox 98.6 F 76 14 122/68 97 03/26/19 06:39 03/26/19 06:39 03/26/19 10:48 03/26/19 06:39 03/26/19 10:48 Exam: She is resting comfortably in a chair at bedside appears in no acute distress. Her affect is overall cheerful. I reviewed her medications and lab results. Internal Medicine: Result - Labs CBC & Chem 7: 03/22/19 05:16 03/22/19 05:16 Consult Discharge Plan - Plan Referrals: NONE,PCP [Primary Care Provider] - 1 week
[2019-03-27] MEDS: ALPRAZolam 0.25 MG TABLET PO PRN ×3 (06:37→15:16)
[2019-03-27] MEDS: *HR* OxyCODONE/APAP 5/325 TABLET PO PRN ×4 (06:37→20:30)
[2019-03-27] MEDS: Ascorbic Acid 500 MG TABLET PO SCH (06:40)
[2019-03-27 07:47] LABS: Basophils % 0.3 %; Eosinophils # 0.2 K/mcL (0.0-0.6); Eosinophils % 2.3 %; Hematocrit 31.6 % (35.3-44.9); Hemoglobin 9.6 g/dL (11.5-15.4); Immature Granulocytes % 0.6 % (0-4); Lymphocytes # 2.2 K/mcL (0.6-4.6); Lymphocytes % 30.9 %; Mean Corpuscular HGB Conc 30.4 g/dL (31.6-35.5); Mean Corpuscular Hemoglobin 29.1 pg (28.0-33.3); Mean Corpuscular Volume 95.8 fL (83.0-100.0); Monocytes # 0.7 K/mcL (0.0-1.3); Platelet Count 265 K/mcL (140-400); Red Cell Distribution Width 15.1 % (11.5-14.5); Segmented Neutrophils % 55.9 %; White Blood Count 7.1 K/mcL (4.3-11.1)
[2019-03-27 07:54] LABS: BUN/Creatinine Ratio 44 (6-26); Blood Urea Nitrogen 33 mg/dL (8-23); Calcium 8.4 mg/dL (8.6-10.3); Carbon Dioxide 31 mEq/L (23-29); Chloride 104 mEq/L (98-107); Glucose 98 mg/dL (70-105); Osmolality,Calculated 299 (280-300); Potassium 4.3 mEq/L (3.5-5.1); Sodium 141 mEq/L (136-145); eGFR For African Americans > 60 (> 60); eGFR For Non-African Americans > 60 (> 60)
[2019-03-27] MEDS: Magnesium Oxide 400 MG TABLET PO SCH ×2 (10:11→20:29)
[2019-03-27] MEDS: Isosorbide MONOnitrate (24 HR) 60 MG TAB.ER.24H PO SCH (10:11)
[2019-03-27] MEDS: Aspirin Enteric Coated 81 MG Tablet PO SCH (10:11)
[2019-03-27] MEDS: Metoprolol XL (24 HR) Succ 25 MG TAB.ER.24H PO SCH (10:11)
[2019-03-27] MEDS: Bumetanide 1 MG TABLET PO SCH (10:12)
[2019-03-27] MEDS: Cholecalciferol (D-3) 1,000 UNIT (25MCG) TABLET PO SCH (10:12)
[2019-03-27] MEDS: Gabapentin 300 MG CAPSULE PO SCH ×3 (10:12→20:29)
[2019-03-27] MEDS: Methyl Salicylate/Menthol 28 GM TUBE TP SCH ×2 (10:14→23:45)
[2019-03-27] MEDS: Budesonide/Formoterol 160/4.5 1 PUFF INH IH SCH ×2 (10:19→22:17)
[2019-03-28] MEDS: ALPRAZolam 0.25 MG TABLET PO PRN ×4 (02:13→15:18)
[2019-03-28] MEDS: *HR* OxyCODONE/APAP 5/325 TABLET PO PRN ×4 (02:14→15:18)
[2019-03-28] MEDS: Ascorbic Acid 500 MG TABLET PO SCH (06:26)
[2019-03-28] MEDS: Budesonide/Formoterol 160/4.5 1 PUFF INH IH SCH ×2 (09:11→21:21)
[2019-03-28] MEDS: Cholecalciferol (D-3) 1,000 UNIT (25MCG) TABLET PO SCH (10:24)
[2019-03-28] MEDS: Gabapentin 300 MG CAPSULE PO SCH ×3 (10:24→21:11)
[2019-03-28] MEDS: Isosorbide MONOnitrate (24 HR) 60 MG TAB.ER.24H PO SCH (10:25)
[2019-03-28] MEDS: Magnesium Oxide 400 MG TABLET PO SCH ×2 (10:25→21:12)
[2019-03-28] MEDS: Metoprolol XL (24 HR) Succ 25 MG TAB.ER.24H PO SCH (10:26)
[2019-03-28] MEDS: Aspirin Enteric Coated 81 MG Tablet PO SCH (10:26)
[2019-03-28] MEDS: Bumetanide 1 MG TABLET PO SCH (10:26)
[2019-03-28] MEDS: Methyl Salicylate/Menthol 28 GM TUBE TP SCH ×2 (14:36→21:12)
--- NOTE | 2019-03-28 15:39 | Discharge Summary ---
Date of Encounter: 03/28/19 Time of Encounter: 15:27 - Discharge Diagnosis (1) Near syncope Priority: Primary Status: Acute (2) Hypertension Priority: Secondary Status: Chronic Qualifiers: Hypertension type: essential hypertension Qualified Code(s): I10 - Essential (primary) hypertension (3) Anemia Priority: Secondary Status: Chronic Qualifiers: Anemia type: unspecified type Qualified Code(s): D64.9 - Anemia, unspecified (4) Headache Priority: Secondary Status: Acute Qualifiers: Headache type: unspecified Headache chronicity pattern: acute headache Intractability: intractable Qualified Code(s): R51 - Headache (5) Left shoulder pain Priority: Secondary Status: Acute Qualifiers: Chronicity: acute Qualified Code(s): M25.512 - Pain in left shoulder (6) Viral URI Priority: Secondary Status: Resolved (7) Diastolic heart failure Priority: Secondary Status: Chronic Qualifiers: Heart failure chronicity: acute on chronic Qualified Code(s): I50.33 - Acute on chronic diastolic (congestive) heart failure Hospital course: Ms. Kelly is a 68 year old female who was discharged to [facility] swing bed March 03 following a February [address] [facility] stay for near syncope. She had been hospitalized February 24 with similar symptoms resulting in a fall and facial trauma without fracture. Extensive evaluations were done including brain MRI, heart catheter, echocardiogram, and carotid Doppler studies. The etiology of the near syncope was not determined. She was discharged to [facility] swing bed rehabilitation therapy prior to returning to independent living. Initial orders were written by the discharging physicians at [facility]. I saw her on March 04 and performed a swing bed history and physical. She had no further syncopal or near syncopal episodes. Blood pressure remained stable on Toprol- XL. Anemia testing showed iron 38, transferrin saturation 11%, transferrin 258, ferritin 13, B12 400, and folate 4.9. She was started on ferrous sulfate with ascorbic acid. Hemoglobin was stable at 9.6 on March 27. She complained of headache on March 05 not relieved by [place]. She was given Percocet with good relief and continued this on a prn basis throughout her swing bed stay. BN peptide improved using Toprol-XL and low-dose Bumex with BN peptide decreased 162 on March 27. She was seen by the orthopedist for left shoulder pain. He felt reverse TSR was needed. Cardiac clearance was obtained on March 25 and surgery scheduled for March 29. She will be discharged from swing bed 03/29/[address] [facility] for left reverse TSR. It is anticipated she will return to [facility] swing bed upon discharge from [facility]. - Time Spent with Patient Total time spent providing and/or coordinating discharge services: - Discharge Medications Prescriptions: New Potassium Chloride 10 meq PO DAILY tab.er.prt Ferrous Sulfate 325 mg PO 0630 tablet Bumetanide [Bumex] 0.5 mg PO DAILY tablet Budesonide/Formoterol 160/4.5 [Symbicort 160/4.5] 2 puff IH BIDR inh Ascorbic Acid [Vitamin C] 500 mg PO 0630 tablet ALPRAZolam [Xanax 0.25 MG Tablet] 0.25 mg PO Q4H PRN tablet PRN Reason: Anxiety Continued Cholecalciferol (D-3) [Vitamin D] 1,000 unit PO QAM Gabapentin [Neurontin] 900 mg PO TID Acetaminophen w/Cod 300-30 mg [Tylenol w/Codeine #3] 1 tab PO Q4H PRN PRN Reason: Pain Aspirin [Adult Aspirin Regimen] 81 mg PO DAILY Metoprolol XL (24 HR) Succ [Toprol Xl] 25 mg PO DAILY Pantoprazole Sodium 40 mg PO QAM Isosorbide MONOnitrate (24 HR) [Imdur] 60 mg PO DAILY #30 tab.er.24h Memantine [Namenda] 5 mg PO DAILY #30 tablet Buspirone HCl [Buspar] 10 mg PO BID #60 tablet Escitalopram [Lexapro] 20 mg PO DAILY #30 tablet Atorvastatin Calcium [Lipitor] 40 mg PO HS #15 Magnesium Oxide [Magnesium] 400 mg PO BID #60 tablet Nitroglycerin 0.4 mg SL Q5M PRN #25 tab.subl PRN Reason: Chest Pain Clopidogrel [Plavix] 75 mg PO DAILY #30 tablet Discontinued Cetirizine HCl [24Hour Allergy] 10 mg PO QAM Home Medications: Cholecalciferol (D-3) [Vitamin D] 1,000 unit PO QAM 09/08/18 [History] Atorvastatin Calcium [Lipitor] 40 mg PO HS #15 01/12/19 [Rx] Buspirone HCl [Buspar] 10 mg PO BID #60 tablet 01/12/19 [Rx] Clopidogrel [Plavix] 75 mg PO DAILY #30 tablet 01/12/19 [Rx] Escitalopram [Lexapro] 20 mg PO DAILY #30 tablet 01/12/19 [Rx] Isosorbide MONOnitrate (24 HR) [Imdur] 60 mg PO DAILY #30 tab.er.24h 01/12/19 [Rx] Magnesium Oxide [Magnesium] 400 mg PO BID #60 tablet 01/12/19 [Rx] Memantine [Namenda] 5 mg PO DAILY #30 tablet 01/12/19 [Rx] Nitroglycerin 0.4 mg SL Q5M PRN #25 tab.subl 01/12/19 [Rx] Acetaminophen w/Cod 300-30 mg [Tylenol w/Codeine #3] 1 tab PO Q4H PRN 02/24/19 [History] Gabapentin [Neurontin] 900 mg PO TID 02/24/19 [History] Aspirin [Adult Aspirin Regimen] 81 mg PO DAILY 02/26/19 [History] Metoprolol XL (24 HR) Succ [Toprol Xl] 25 mg PO DAILY 02/26/19 [History] Pantoprazole Sodium 40 mg PO QAM 02/26/19 [History] ALPRAZolam [Xanax 0.25 MG Tablet] 0.25 mg PO Q4H PRN tablet 03/28/19 [Rx] Ascorbic Acid [Vitamin C] 500 mg PO 0630 tablet 03/28/19 [Rx] Budesonide/Formoterol 160/4.5 [Symbicort 160/4.5] 2 puff IH BIDR inh 03/28/19 [Rx] Bumetanide [Bumex] 0.5 mg PO DAILY tablet 03/28/19 [Rx] Ferrous Sulfate 325 mg PO 0630 tablet 03/28/19 [Rx] Potassium Chloride 10 meq PO DAILY tab.er.prt 03/28/19 [Rx] Allergies/Adverse Reactions: Allergy/AdvReac Type Severity Reaction Status Date / Time sumatriptan [From Imitrex] Allergy Swelling Verified 02/28/19 00:45 of Lip/Tongue/Throat venom-honey bee Allergy Swelling Verified 02/28/19 00:45 [bee venom (honey bee)] of Lip/Tongue/Throat morphine AdvReac Nausea Verified 02/28/19 00:45 Date of admission: 03/03/19 11:26 Primary care physician: PCP NONE Consults: 03/03/19 11:58 Consult to Occupational Therapy [CONS] Routine Comment: eval, develop, implement POC Reason for Consult: eval, develop, implement POC Does patient have active BEDREST order?: No Is patient medically & hemodynamically stable?: Yes Consult to Physical Therapy [CONS] Routine Comment: eval, develop, implement POC Reason for Consult: eval, develop, implement POC Does patient have active BEDREST order?: No Is patient medically & hemodynamically stable?: Yes Consult to Foam Gun Operator [CONS] Routine Reason for SW Consult: may need HH upon d/c - Constitutional Vitals: Temp Pulse Resp BP Pulse Ox 98.5 F 79 16 110/59 94 03/28/19 06:29 03/28/19 06:29 03/28/19 09:12 03/28/19 06:29 03/28/19 09:12 - Patient Status Disposition: Transfer Other - Discharge Instructions Follow Up With: NONE,PCP [Primary Care Provider] - 1 week
[2019-03-29 04:52] VITALS: BP 151/78
== END 2019-03-29 06:10 | disposition other institution (70) | DRG 312 ==
LOC: INPPIK 11:26
PROVIDERS: ADMIT Internal Medicine; ATTEND Internal Medicine

== ENCOUNTER 2019-03-30 14:11 | Inpatient (IN) ==
[2019-03-30] MEDS ORDERED: *HR* OxyCODONE/APAP 5/325 TABLET PO PRN (14:35)
[2019-03-30] MEDS ORDERED: Nitroglycerin 0.4 MG TAB.SUBL SL PRN (14:35)
[2019-03-30] MEDS ORDERED: Acetaminophen 325 MG TABLET PO PRN (14:35)
[2019-03-30] MEDS ORDERED: Ondansetron ODT 4 MG TAB.RAPDIS SL PRN (15:00)
[2019-03-30] MEDS: Gabapentin 300 MG CAPSULE PO SCH ×2 (16:36→21:27)
[2019-03-30] MEDS: *HR* OxyCODONE/APAP 5/325 TABLET PO PRN ×2 (16:36→21:27)
[2019-03-30] MEDS: ALPRAZolam 0.25 MG TABLET PO PRN ×2 (16:36→21:27)
[2019-03-30] MEDS ORDERED: Methyl Salicylate/Menthol 57 APPL/57 GM TUBE TP SCH (17:10)
[2019-03-30] MEDS: Magnesium Oxide 400 MG TABLET PO SCH (21:28)
[2019-03-30] MEDS: Budesonide/Formoterol 160/4.5 1 PUFF INH IH SCH (22:21)
[2019-03-31] MEDS: ALPRAZolam 0.25 MG TABLET PO PRN ×5 (01:38→22:03)
[2019-03-31] MEDS: *HR* OxyCODONE/APAP 5/325 TABLET PO PRN ×5 (01:38→21:57)
[2019-03-31] MEDS: Ascorbic Acid 500 MG TABLET PO SCH (05:55)
[2019-03-31 08:02] LABS: Basophils % 0.3 %; Eosinophils # 0.1 K/mcL (0.0-0.6); Eosinophils % 0.6 %; Hemoglobin 8.3 g/dL (11.5-15.4); Immature Granulocytes % 0.4 % (0-4); Lymphocytes # 2.1 K/mcL (0.6-4.6); Lymphocytes % 26.7 %; Mean Corpuscular HGB Conc 29.6 g/dL (31.6-35.5); Mean Corpuscular Hemoglobin 28.8 pg (28.0-33.3); Mean Corpuscular Volume 97.2 fL (83.0-100.0); Mean Platelet Volume 10.1 fL (9.4-12.4); Monocytes # 0.7 K/mcL (0.0-1.3); Monocytes % 8.7 %; Platelet Count 235 K/mcL (140-400); Red Blood Count 2.88 M/mcL (3.82-4.97); Segmented Neutrophils % 63.3 %; White Blood Count 7.8 K/mcL (4.3-11.1)
[2019-03-31] MEDS ORDERED: Methyl Salicylate/Menthol 28 GM TUBE TP SCH (09:00)
[2019-03-31] MEDS ORDERED: Aspirin Enteric Coated 81 MG Tablet PO SCH (09:00)
[2019-03-31 09:17] LABS: BUN/Creatinine Ratio 43 (6-26); Blood Urea Nitrogen 32 mg/dL (8-23); Calcium 8.5 mg/dL (8.6-10.3); Carbon Dioxide 31 mEq/L (23-29); Chloride 105 mEq/L (98-107); Glucose 100 mg/dL (70-105); Osmolality,Calculated 303 (280-300); Potassium 4.3 mEq/L (3.5-5.1); Sodium 143 mEq/L (136-145); eGFR For African Americans > 60 (> 60); eGFR For Non-African Americans > 60 (> 60)
[2019-03-31] MEDS: Aspirin 325 MG TABLET PO SCH (10:48)
[2019-03-31] MEDS: Bumetanide 1 MG TABLET PO SCH (10:48)
[2019-03-31] MEDS: Gabapentin 300 MG CAPSULE PO SCH ×3 (10:49→21:57)
[2019-03-31] MEDS: Metoprolol XL (24 HR) Succ 25 MG TAB.ER.24H PO SCH (10:49)
[2019-03-31] MEDS: Cholecalciferol (D-3) 1,000 UNIT (25MCG) TABLET PO SCH (10:49)
[2019-03-31] MEDS: Isosorbide MONOnitrate (24 HR) 60 MG TAB.ER.24H PO SCH (10:49)
[2019-03-31] MEDS: Magnesium Oxide 400 MG TABLET PO SCH ×2 (10:49→21:57)
[2019-03-31] MEDS: Budesonide/Formoterol 160/4.5 1 PUFF INH IH SCH ×2 (11:05→21:51)
--- NOTE | 2019-03-31 18:14 | Internal Med History&Physical ---
Date of Encounter: 03/31/19 Time of Encounter: 17:55 Assessment and Plan (1) Status post reverse total replacement of left shoulder Current visit: Yes Status: Acute Continue PT and OT intervention with analgesics. (2) Anemia Current visit: No Status: Chronic Hemoglobin decreased 8.3 today. Continue to monitor. Qualifiers: Anemia type: unspecified type Qualified Code(s): D64.9 - Anemia, unspecified (3) Edema Current visit: Yes Status: Acute Continue Bumex. I encouraged her to elevate her feet while sitting in the recliner chair. Qualifiers: Edema type: unspecified Qualified Code(s): R60.9 - Edema, unspecified (4) Hypertension Current visit: No Status: Chronic Continue Bumex and Toprol. Qualifiers: Hypertension type: essential hypertension Qualified Code(s): I10 - Essential (primary) hypertension Internal Medicine - H&P: HPI Chief complaint: Left total shoulder replacement Admitted From: Hospital to Hospital Transfer Plans for Post Hospital Care: Home History of present illness: Ms. Kelly is a 68 year old female who returned from [facility] after undergoing left reverse total shoulder replacement. Her postop course was unremarkable and she returned to swing bed for ongoing rehabilitation therapy. She has fibromyalgia and DJD. 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 She denies gout or other bone joint or muscle disorders. She had been in [facility] swing bed March 03-March 22 following [facility] hospitalization for near syncope. Past Med Surg Social Fam HX - Past Medical History Medical history: arthritis, cancer, coronary artery disease, DVT, fibromyalgia, GERD, hyperlipidemia, hypertension, kidney stones, malignancy, migraine, myoc ardial infarction Additional medical history: uterine cancer. Left leg DVT. fibromyalgia Psychiatric history: anxiety, bipolar, depression, panic disorder, PTSD - Past Surgical History Surgical History: cholecystectomy, other Additional surgical history: Left hip replacement. right shoulder Surgery. heart stents. angioplasty - Social History Smoking Status: Former smoker Smokeless Tobacco Status: No Alcohol use: none Drug use: none - Family History Mother Family Member Ethnicity: Non- Living Status: Still Living Hx Family Cardiac Disorders: Yes ([place]) Hx Family Respiratory Disorders: Yes Hx Family Cancer: Yes ("female") Hx Family GI Disorders: No Hx Family Endocrine Disorder: No Hx Family Neuromuscular Disorders: No Hx Family Neurologic Disorders: No Hx Family HEENT Disorders: No Hx Family Autoimmune Disorders: No Father History Unknown: Yes Adopted: [place]: Jordan Kelly Family Member Ethnicity: Non- Living Status: Unknown Hx Family Cardiac Disorders: Yes ([place]) Hx Family Respiratory Disorders: No Hx Family Cancer: No Hx Family GI Disorders: No Hx Family Endocrine Disorder: No Hx Family Neuromuscular Disorders: No Hx Family Neurologic Disorders: No Hx Family HEENT Disorders: No Hx Family Autoimmune Disorders: No Brother Family Member Ethnicity: Non- Living Status: Still Living Hx Family Cardiac Disorders: Yes (CAD) Internal Medicine - H&P: Meds Cholecalciferol (D-3) [Vitamin D] 1,000 unit PO QAM 09/08/18 [History] Atorvastatin Calcium [Lipitor] 40 mg PO HS #15 01/12/19 [Rx] Buspirone HCl [Buspar] 10 mg PO BID #60 tablet 01/12/19 [Rx] Clopidogrel [Plavix] 75 mg PO DAILY #30 tablet 01/12/19 [Rx] Escitalopram [Lexapro] 20 mg PO DAILY #30 tablet 01/12/19 [Rx] Isosorbide MONOnitrate (24 HR) [Imdur] 60 mg PO DAILY #30 tab.er.24h 01/12/19 [Rx] Magnesium Oxide [Magnesium] 400 mg PO BID #60 tablet 01/12/19 [Rx] Memantine [Namenda] 5 mg PO DAILY #30 tablet 01/12/19 [Rx] Nitroglycerin 0.4 mg SL Q5M PRN #25 tab.subl 01/12/19 [Rx] Gabapentin [Neurontin] 900 mg PO TID 02/24/19 [History] Aspirin [Adult Aspirin Regimen] 81 mg PO DAILY 02/26/19 [History] Metoprolol XL (24 HR) Succ [Toprol Xl] 25 mg PO DAILY 02/26/19 [History] ALPRAZolam [Xanax 0.25 MG Tablet] 0.25 mg PO Q4H PRN tablet 03/28/19 [Rx] Ascorbic Acid [Vitamin C] 500 mg PO 0630 tablet 03/28/19 [Rx] Budesonide/Formoterol 160/4.5 [Symbicort 160/4.5] 2 puff IH BIDR inh 03/28/19 [Rx] Bumetanide [Bumex] 0.5 mg PO DAILY tablet 03/28/19 [Rx] Ferrous Sulfate 325 mg PO 0630 tablet 03/28/19 [Rx] Potassium Chloride 10 meq PO DAILY tab.er.prt 03/28/19 [Rx] Acetaminophen [Tylenol] 650 mg PO Q8H PRN 03/29/19 [History] Albuterol Sulfate [Proair Hfa] 2 puff IH Q4H 03/29/19 [History] Omeprazole [PriLOSEC] 40 mg PO DAILY 03/29/19 [History] OxyCODONE/APAP 5/325 [Percocet 5/325 MG] 2 tab PO Q4HR PRN 03/29/19 [History] Allergy/AdvReac Type Severity Reaction Status Date / Time sumatriptan [From Imitrex] Allergy Swelling Verified 02/28/19 00:45 of Lip/Tongue/Throat venom-honey bee Allergy Swelling Verified 02/28/19 00:45 [bee venom (honey bee)] of Lip/Tongue/Throat morphine AdvReac Nausea Verified 02/28/19 00:45 All Systems PM: A 10-system review of systems was performed and is negative for pertinent findings except as documented above in the HPI. Review of systems: Review of systems from her February 2019 [facility] swing bed stay were reviewed and revised as below. Gen.: Her weight has decreased from 135.6 kg on 12/29/2018 to 127.006 kg now. Cardiovascular: She has history of hypertension. She has known ASHD status post [place] January 2016. She had heart cath at [facility] 02/24/2019 showing LMCA free of disease, LAD with 20% in-stent restenosis in the proximal LAD and 25% stenosis in the mid LAD, 30% stenosis in the proximal circumflex and 50% stenosis in the mid circumflex, 30 % stenosis in the proximal RCA, 20% in-stent restenosis in the mid RCA and 30% stenosis in the distal RCA. Echocardiogram 02/25/2019 showed LVEF of 55%. No significant valvular abnormalities were seen. The interventricular septum and posterior wall thickness measurements were 1.32 and 1.05 cm respectively. E/A ratio was 1.2. She has history of left leg DVT approximately 20 years ago. She denies pulmonary embolus. She has predictable dyspnea on exertion. Carotid Doppler 02/28/2019 showed unremarkable right carotid system and left distal ICA with moderate 40-59% stenosis. Respiratory: She smoked for approximately 3 years in early adulthood. She denies chronic lung disease and does not use home oxygen. She has not been tested for sleep apnea. GI: She has had cholecystectomy. She denies disorders of her liver or exocrine pancreas : She has history of multiple kidney stones with most recent one approximately February 2016. She denies other kidney or bladder disorders. Neurologic: She has history of migraine headaches. She denies large distribution strokes or seizures. Endocrine: She has history of hyperlipidemia. She denies diabetes or thyroid disease. Hematology/oncology: She has history of cervical cancer with curative hysterectomy several years ago. She denies other internal malignancies. She has had anemia on most labs since November 2014. Psychiatric: She has anxiety, depression, and PTSD. [place] skeletal: As per history of present illness - Constitutional Vitals: Temp Pulse Resp BP Pulse Ox 97.6 F 70 16 127/80 97 03/31/19 06:51 03/31/19 06:51 03/31/19 11:05 03/31/19 06:51 03/31/19 11:05 Exam: Gen.: She is a well-developed obese female sitting in a chair at bedside who appears in no acute distress HEENT: Head is atraumatic and normocephalic. Eyes: EOMI. There is no scleral icterus. Mouth: Mucosa is moist. Neck: Supple and nontender. There is no thyromegaly or adenopathy noted. Heart: Regular without murmurs gallops or ectopics. Lungs: No wheezes or crackles are heard. Abdomen: She has a large abdomen. It is nontender to palpation. Exam is limited because she is in the seated position. Extremities: She has 1+ edema of the lower legs bilaterally. The left arm is in an immobilization sling. Neurologic: Mental status: She is talkative and a good historian. Cranial nerves: Smile is symmetric. Forehead wrinkles bilaterally. Tongue protrudes midline. EOMI. Motor: She cannot move her left arm because of immobilization sling. The right arm moves normally. She moves her legs on command. No further neurologic testing is attempted. Skin: Warm and dry Internal Med - H&P Results - Labs CBC & Chem 7: 03/31/19 07:09 03/31/19 07:09 Labs: Short CBC 03/31/19 Range/Units 07:09 WBC 7.8 (4.3-11.1) K/mcL Hgb 8.3 L (11.5-15.4) g/dL Hct 28.0 L (35.3-44.9) % Plt Count 235 (140-400) K/mcL Neutrophils # 5.0 (1.6-8.9) K/mcL BMP 03/31/19 07:09 Sodium 143 Potassium 4.3 Chloride 105 Carbon Dioxide 31 H BUN 32 H Creatinine 0.74 Glucose 100 Calcium 8.5 L
[2019-04-01] MEDS: ALPRAZolam 0.25 MG TABLET PO PRN ×3 (02:16→20:07)
[2019-04-01] MEDS: *HR* OxyCODONE/APAP 5/325 TABLET PO PRN ×5 (02:16→20:06)
[2019-04-01] MEDS: Ascorbic Acid 500 MG TABLET PO SCH (06:29)
[2019-04-01] MEDS: Budesonide/Formoterol 160/4.5 1 PUFF INH IH SCH ×2 (09:47→22:21)
[2019-04-01] MEDS: Magnesium Oxide 400 MG TABLET PO SCH ×2 (10:29→20:07)
[2019-04-01] MEDS: Isosorbide MONOnitrate (24 HR) 60 MG TAB.ER.24H PO SCH (10:30)
[2019-04-01] MEDS: Metoprolol XL (24 HR) Succ 25 MG TAB.ER.24H PO SCH (10:30)
[2019-04-01] MEDS: Bumetanide 1 MG TABLET PO SCH (10:30)
[2019-04-01] MEDS: Aspirin 325 MG TABLET PO SCH (10:30)
[2019-04-01] MEDS: Gabapentin 300 MG CAPSULE PO SCH ×3 (10:30→20:06)
[2019-04-01] MEDS: Methyl Salicylate/Menthol 28 GM TUBE TP SCH ×2 (10:30→20:06)
[2019-04-01] MEDS: Cholecalciferol (D-3) 1,000 UNIT (25MCG) TABLET PO SCH (10:31)
[2019-04-02] MEDS: ALPRAZolam 0.25 MG TABLET PO PRN ×5 (02:38→21:47)
[2019-04-02] MEDS: *HR* OxyCODONE/APAP 5/325 TABLET PO PRN ×5 (02:38→21:48)
[2019-04-02] MEDS: Ascorbic Acid 500 MG TABLET PO SCH (06:20)
[2019-04-02] MEDS: Budesonide/Formoterol 160/4.5 1 PUFF INH IH SCH ×2 (09:05→21:56)
[2019-04-02] MEDS: Cholecalciferol (D-3) 1,000 UNIT (25MCG) TABLET PO SCH (09:14)
[2019-04-02] MEDS: Metoprolol XL (24 HR) Succ 25 MG TAB.ER.24H PO SCH (09:14)
[2019-04-02] MEDS: Magnesium Oxide 400 MG TABLET PO SCH ×2 (09:15→21:47)
[2019-04-02] MEDS: Gabapentin 300 MG CAPSULE PO SCH ×3 (09:15→21:47)
[2019-04-02] MEDS: Isosorbide MONOnitrate (24 HR) 60 MG TAB.ER.24H PO SCH (09:15)
[2019-04-02] MEDS: Bumetanide 1 MG TABLET PO SCH (09:15)
[2019-04-02] MEDS: Aspirin 325 MG TABLET PO SCH (09:15)
[2019-04-02] MEDS: Methyl Salicylate/Menthol 28 GM TUBE TP SCH ×2 (09:16→21:54)
[2019-04-03] MEDS: *HR* OxyCODONE/APAP 5/325 TABLET PO PRN ×4 (06:13→21:00)
[2019-04-03] MEDS: Ascorbic Acid 500 MG TABLET PO SCH (06:13)
[2019-04-03] MEDS: ALPRAZolam 0.25 MG TABLET PO PRN ×4 (06:17→20:59)
[2019-04-03] MEDS: Budesonide/Formoterol 160/4.5 1 PUFF INH IH SCH ×2 (10:29→22:34)
[2019-04-03] MEDS: Cholecalciferol (D-3) 1,000 UNIT (25MCG) TABLET PO SCH (10:54)
[2019-04-03] MEDS: Isosorbide MONOnitrate (24 HR) 60 MG TAB.ER.24H PO SCH (10:54)
[2019-04-03] MEDS: Magnesium Oxide 400 MG TABLET PO SCH ×2 (10:54→20:25)
[2019-04-03] MEDS: Bumetanide 1 MG TABLET PO SCH (10:54)
[2019-04-03] MEDS: Metoprolol XL (24 HR) Succ 25 MG TAB.ER.24H PO SCH (10:54)
[2019-04-03] MEDS: Aspirin 325 MG TABLET PO SCH (10:54)
[2019-04-03] MEDS: Methyl Salicylate/Menthol 28 GM TUBE TP SCH ×2 (10:55→21:01)
[2019-04-03] MEDS: Gabapentin 300 MG CAPSULE PO SCH ×3 (10:55→20:24)
--- NOTE | 2019-04-03 17:34 | Internal Med Progress Note ---
Date of Encounter: 04/03/19 Time of Encounter: 17:25 - Assessment and plan (1) Status post reverse total replacement of left shoulder Current Visit: Yes Status: Acute Assessment and plan: April 03. Continue PT and OT intervention with analgesics and therapy (2) Anemia Current Visit: No Status: Chronic Assessment and plan: April 03. Recheck labs in a.m. Qualifiers: Anemia type: unspecified type Qualified Code(s): D64.9 - Anemia, unspecified (3) Edema Current Visit: Yes Status: Acute Assessment and plan: April 03. Decreased. Continue Bumex. Recheck labs in a.m. Qualifiers: Edema type: unspecified Qualified Code(s): R60.9 - Edema, unspecified (4) Hypertension Current Visit: No Status: Chronic Assessment and plan: April 03. Blood pressure acceptable. Continue Toprol and Bumex. Qualifiers: Hypertension type: essential hypertension Qualified Code(s): I10 - Ess ential (primary) hypertension - Subjective Interval history: April 03. She has no new complaints. She feels she is making satisfactory progress in therapy. She states her new living location will not be available until April 13. - Constitutional Vitals: Temp Pulse Resp BP Pulse Ox 98.7 F 75 16 139/63 97 04/03/19 06:58 04/03/19 06:58 04/03/19 06:58 04/03/19 06:58 04/03/19 06:58 Exam: She is resting in a recliner chair at bedside with her feet elevated. Extr emities show trace edema bilaterally. I reviewed her medications and lab results. Internal Medicine: Result - Labs CBC & Chem 7: 03/31/19 07:09 03/31/19 07:09 Consult Discharge Plan - Plan Referrals: NONE,PCP [Primary Care Provider] - 1 week
[2019-04-03] MEDS ORDERED: Ibuprofen 600 MG TABLET PO ONE (18:57)
[2019-04-04] MEDS: ALPRAZolam 0.25 MG TABLET PO PRN ×5 (01:21→19:36)
[2019-04-04] MEDS: *HR* OxyCODONE/APAP 5/325 TABLET PO PRN ×5 (01:21→19:36)
[2019-04-04] MEDS: Ascorbic Acid 500 MG TABLET PO SCH (06:39)
[2019-04-04 08:00] LABS: Basophils % 0.3 %; Eosinophils # 0.2 K/mcL (0.0-0.6); Eosinophils % 3.5 %; Hematocrit 30.4 % (35.3-44.9); Hemoglobin 9.2 g/dL (11.5-15.4); Immature Granulocytes % 0.5 % (0-4); Lymphocytes # 2.1 K/mcL (0.6-4.6); Mean Corpuscular HGB Conc 30.3 g/dL (31.6-35.5); Mean Corpuscular Volume 95.9 fL (83.0-100.0); Mean Platelet Volume 10.2 fL (9.4-12.4); Monocytes # 0.5 K/mcL (0.0-1.3); Monocytes % 6.9 %; Neutrophils # 3.8 K/mcL (1.6-8.9); Platelet Count 204 K/mcL (140-400); Red Blood Count 3.17 M/mcL (3.82-4.97); Red Cell Distribution Width 14.4 % (11.5-14.5); Segmented Neutrophils % 56.8 %; White Blood Count 6.6 K/mcL (4.3-11.1)
[2019-04-04 08:11] LABS: BUN/Creatinine Ratio 32 (6-26); Blood Urea Nitrogen 25 mg/dL (8-23); Calcium 8.6 mg/dL (8.6-10.3); Carbon Dioxide 30 mEq/L (23-29); Chloride 104 mEq/L (98-107); Glucose 121 mg/dL (70-105); Magnesium 2.4 mg/dL (1.6-2.6); Osmolality,Calculated 298 (280-300); Potassium 4.2 mEq/L (3.5-5.1); Sodium 141 mEq/L (136-145); eGFR For African Americans > 60 (> 60); eGFR For Non-African Americans > 60 (> 60)
[2019-04-04] MEDS: Budesonide/Formoterol 160/4.5 1 PUFF INH IH SCH ×2 (10:04→20:59)
[2019-04-04] MEDS: Magnesium Oxide 400 MG TABLET PO SCH ×2 (11:01→19:36)
[2019-04-04] MEDS: Gabapentin 300 MG CAPSULE PO SCH ×3 (11:01→19:36)
[2019-04-04] MEDS: Isosorbide MONOnitrate (24 HR) 60 MG TAB.ER.24H PO SCH (11:01)
[2019-04-04] MEDS: Bumetanide 1 MG TABLET PO SCH (11:01)
[2019-04-04] MEDS: Methyl Salicylate/Menthol 28 GM TUBE TP SCH ×2 (11:02→19:37)
[2019-04-04] MEDS: Aspirin 325 MG TABLET PO SCH (11:02)
[2019-04-04] MEDS: Metoprolol XL (24 HR) Succ 25 MG TAB.ER.24H PO SCH (11:02)
[2019-04-04] MEDS: Cholecalciferol (D-3) 1,000 UNIT (25MCG) TABLET PO SCH (11:02)
[2019-04-04] MEDS: MOM Conc 10 ML UD.LIQ PO SCH (15:09)
[2019-04-04] MEDS: traZODone 50 MG TABLET PO SCH (21:54)
[2019-04-05] MEDS: Ascorbic Acid 500 MG TABLET PO SCH (05:31)
[2019-04-05] MEDS: ALPRAZolam 0.25 MG TABLET PO PRN ×4 (05:31→21:56)
[2019-04-05] MEDS: *HR* OxyCODONE/APAP 5/325 TABLET PO PRN ×4 (05:31→21:55)
[2019-04-05] MEDS: Cholecalciferol (D-3) 1,000 UNIT (25MCG) TABLET PO SCH (09:07)
[2019-04-05] MEDS: Aspirin 325 MG TABLET PO SCH (09:07)
[2019-04-05] MEDS: Gabapentin 300 MG CAPSULE PO SCH ×3 (09:07→21:55)
[2019-04-05] MEDS: Bumetanide 1 MG TABLET PO SCH (09:08)
[2019-04-05] MEDS: Metoprolol XL (24 HR) Succ 25 MG TAB.ER.24H PO SCH (09:08)
[2019-04-05] MEDS: Isosorbide MONOnitrate (24 HR) 60 MG TAB.ER.24H PO SCH (09:08)
[2019-04-05] MEDS: Magnesium Oxide 400 MG TABLET PO SCH ×2 (09:08→21:55)
[2019-04-05] MEDS: Methyl Salicylate/Menthol 28 GM TUBE TP SCH ×2 (09:10→21:56)
[2019-04-05] MEDS: Budesonide/Formoterol 160/4.5 1 PUFF INH IH SCH ×2 (09:12→22:59)
--- NOTE | 2019-04-05 12:10 | Internal Med Progress Note ---
Date of Encounter: 04/05/19 Time of Encounter: 12:00 - Assessment and plan (1) Status post reverse total replacement of left shoulder Current Visit: Yes Status: Acute Assessment and plan: April 03. Continue PT and OT intervention with analgesics and therapy (2) Anemia Current Visit: No Status: Chronic Assessment and plan: April 03. Recheck labs in a.m. April 05. Hemoglobin improved to 9.2. Continue to monitor. Qualifiers: Anemia type: unspecified type Qualified Code(s): D64.9 - Anemia, unspecified (3) Edema Current Visit: Yes Status: Acute Assessment and plan: April 03. Decreased. Continue Bumex. Recheck labs in a.m. April 05. BN peptide stable at 119. Continue present Rx. Qualifiers: Edema type: unspecified Qualified Code(s): R60.9 - Edema, unspecified (4) Hypertension Current Visit: No Status: Chronic Assessment and plan: April 03. Blood pressure acceptable. Continue Toprol and Bumex. Qualifiers: Hypertension type: essential hypertension Qualified Code(s): I10 - Essential (primary) hypertension - Subjective Interval history: April 03. She has no new complaints. She feels she is making satisfactory progress in therapy. She states her new living location will not be available until April 13. April 05. She has no new complaints. - Constitutional Vitals: Temp Pulse Resp BP Pulse Ox 98.5 F 74 18 102/63 96 04/05/19 06:47 04/05/19 09:07 04/05/19 09:13 04/05/19 09:07 04/05/19 09:13 Exam: She is resting comfortably in her recliner chair at bedside. She appears in no acute distress. I reviewed her medications and lab results. Internal Medicine: Result - Labs CBC & Chem 7: 04/04/19 07:19 04/04/19 07:19 Consult Discharge Plan - Plan Referrals: NONE,PCP [Primary Care Provider] - 1 week
[2019-04-05] MEDS: traZODone 50 MG TABLET PO SCH (21:56)
[2019-04-06] MEDS: *HR* OxyCODONE/APAP 5/325 TABLET PO PRN ×4 (05:13→21:21)
[2019-04-06] MEDS: Ascorbic Acid 500 MG TABLET PO SCH (05:13)
[2019-04-06] MEDS: ALPRAZolam 0.25 MG TABLET PO PRN ×4 (05:14→21:21)
[2019-04-06] MEDS: Isosorbide MONOnitrate (24 HR) 60 MG TAB.ER.24H PO SCH (08:58)
[2019-04-06] MEDS: Cholecalciferol (D-3) 1,000 UNIT (25MCG) TABLET PO SCH (08:58)
[2019-04-06] MEDS: Gabapentin 300 MG CAPSULE PO SCH ×3 (08:59→21:20)
[2019-04-06] MEDS: Aspirin 325 MG TABLET PO SCH (08:59)
[2019-04-06] MEDS: Bumetanide 1 MG TABLET PO SCH (08:59)
[2019-04-06] MEDS: Magnesium Oxide 400 MG TABLET PO SCH ×2 (08:59→21:21)
[2019-04-06] MEDS: Metoprolol XL (24 HR) Succ 25 MG TAB.ER.24H PO SCH (08:59)
[2019-04-06] MEDS: Methyl Salicylate/Menthol 28 GM TUBE TP SCH ×2 (09:03→21:23)
[2019-04-06] MEDS: Budesonide/Formoterol 160/4.5 1 PUFF INH IH SCH ×2 (09:28→21:48)
[2019-04-06] MEDS: MOM Conc 10 ML UD.LIQ PO SCH (15:05)
[2019-04-06] MEDS: traZODone 50 MG TABLET PO SCH (21:21)
[2019-04-07] MEDS: *HR* OxyCODONE/APAP 5/325 TABLET PO PRN ×4 (02:24→22:05)
[2019-04-07] MEDS: ALPRAZolam 0.25 MG TABLET PO PRN ×4 (02:26→22:05)
[2019-04-07] MEDS: Ascorbic Acid 500 MG TABLET PO SCH (06:01)
[2019-04-07] MEDS: Budesonide/Formoterol 160/4.5 1 PUFF INH IH SCH ×2 (09:54→21:53)
[2019-04-07] MEDS: Bumetanide 1 MG TABLET PO SCH (09:58)
[2019-04-07] MEDS: Isosorbide MONOnitrate (24 HR) 60 MG TAB.ER.24H PO SCH (09:58)
[2019-04-07] MEDS: Cholecalciferol (D-3) 1,000 UNIT (25MCG) TABLET PO SCH (09:59)
[2019-04-07] MEDS: Gabapentin 300 MG CAPSULE PO SCH ×3 (10:00→22:04)
[2019-04-07] MEDS: Metoprolol XL (24 HR) Succ 25 MG TAB.ER.24H PO SCH (10:00)
[2019-04-07] MEDS: Magnesium Oxide 400 MG TABLET PO SCH ×2 (10:01→22:05)
[2019-04-07] MEDS: Methyl Salicylate/Menthol 28 GM TUBE TP SCH ×2 (10:01→22:05)
[2019-04-07] MEDS: Aspirin 325 MG TABLET PO SCH (10:01)
[2019-04-07] MEDS: traZODone 50 MG TABLET PO SCH (22:05)
[2019-04-08] MEDS: ALPRAZolam 0.25 MG TABLET PO PRN ×4 (06:41→23:23)
[2019-04-08] MEDS: *HR* OxyCODONE/APAP 5/325 TABLET PO PRN ×4 (06:42→23:23)
[2019-04-08] MEDS: Ascorbic Acid 500 MG TABLET PO SCH (06:42)
[2019-04-08] MEDS: Bumetanide 1 MG TABLET PO SCH (08:58)
[2019-04-08] MEDS: Metoprolol XL (24 HR) Succ 25 MG TAB.ER.24H PO SCH (08:59)
[2019-04-08] MEDS: Aspirin 325 MG TABLET PO SCH (08:59)
[2019-04-08] MEDS: Isosorbide MONOnitrate (24 HR) 60 MG TAB.ER.24H PO SCH (08:59)
[2019-04-08] MEDS: Magnesium Oxide 400 MG TABLET PO SCH ×2 (08:59→23:21)
[2019-04-08] MEDS: Cholecalciferol (D-3) 1,000 UNIT (25MCG) TABLET PO SCH (08:59)
[2019-04-08] MEDS: Gabapentin 300 MG CAPSULE PO SCH ×3 (08:59→23:22)
[2019-04-08] MEDS: Methyl Salicylate/Menthol 28 GM TUBE TP SCH ×2 (09:00→23:23)
[2019-04-08] MEDS: Budesonide/Formoterol 160/4.5 1 PUFF INH IH SCH ×2 (10:47→21:28)
[2019-04-08] MEDS: MOM Conc 10 ML UD.LIQ PO SCH (15:36)
--- NOTE | 2019-04-08 18:36 | Internal Med Progress Note ---
Date of Encounter: 04/08/19 Time of Encounter: 18:28 - Assessment and plan (1) Status post reverse total replacement of left shoulder Current Visit: Yes Status: Acute Assessment and plan: April 03. Continue PT and OT intervention with analgesics and therapy (2) Anemia Current Visit: No Status: Chronic Assessment and plan: April 03. Recheck labs in a.m. April 05. Hemoglobin improved to 9.2. Continue to monitor. April 08. Recheck labs in a.m. Qualifiers: Anemia type: unspecified type Qualified Code(s): D64.9 - Anemia, unspecified (3) Edema Current Visit: Yes Status: Acute Assessment and plan: April 03. Decreased. Continue Bumex. Recheck labs in a.m. April 05. BN peptide stable at 119. Continue present Rx. April 08. Resolved. Continue low-dose Bumex and monitor. Qualifiers: Edema type: unspecified Qualified Code(s): R60.9 - Edema, unspecified (4) Hypertension Current Visit: No Status: Chronic Assessment and plan: April 03. Blood pressure acceptable. Continue Toprol and Bumex. Qualifiers: Hypertension type: essential hypertension Qualified Code(s): I10 - Essential (primary) hypertension - Subjective Interval history: April 03. She has no new complaints. She feels she is making satisfactory progress in therapy. She states her new living location will not be available until April 13. April 05. She has no new complaints. April 08. She has no new complaints. - Constitutional Vitals: Temp Pulse Resp BP Pulse Ox 98.3 F 75 16 117/69 95 04/08/19 06:30 04/08/19 06:30 04/08/19 10:46 04/08/19 06:30 04/08/19 10:46 Exam: She is sitting in a recliner chair at bedside with her feet elevated. Her affect is bright and cheerful overall. Extremities show no pitting edema. I reviewed her medications and past lab results. Internal Medicine: Result - Labs CBC & Chem 7: 04/04/19 07:19 04/04/19 07:19 Consult Discharge Plan - Plan Referrals: NONE,PCP [Primary Care Provider] - 1 week
[2019-04-08] MEDS: traZODone 50 MG TABLET PO SCH (23:22)
[2019-04-09] MEDS: Ascorbic Acid 500 MG TABLET PO SCH (06:06)
[2019-04-09] MEDS: *HR* OxyCODONE/APAP 5/325 TABLET PO PRN ×3 (06:11→22:38)
[2019-04-09] MEDS: ALPRAZolam 0.25 MG TABLET PO PRN ×3 (06:12→22:37)
[2019-04-09 07:21] LABS: Basophils % 0.3 %; Eosinophils # 0.3 K/mcL (0.0-0.6); Eosinophils % 5.3 %; Hematocrit 30.8 % (35.3-44.9); Hemoglobin 9.2 g/dL (11.5-15.4); Immature Granulocytes % 0.2 % (0-4); Lymphocytes % 32.4 %; Mean Corpuscular HGB Conc 29.9 g/dL (31.6-35.5); Mean Corpuscular Hemoglobin 28.7 pg (28.0-33.3); Mean Platelet Volume 9.8 fL (9.4-12.4); Monocytes # 0.6 K/mcL (0.0-1.3); Monocytes % 9.9 %; Neutrophils # 3.2 K/mcL (1.6-8.9); Platelet Count 225 K/mcL (140-400); Red Blood Count 3.21 M/mcL (3.82-4.97); Red Cell Distribution Width 13.9 % (11.5-14.5); Segmented Neutrophils % 51.9 %; White Blood Count 6.1 K/mcL (4.3-11.1)
[2019-04-09 07:45] LABS: BUN/Creatinine Ratio 31 (6-26); Blood Urea Nitrogen 26 mg/dL (8-23); Calcium 8.5 mg/dL (8.6-10.3); Carbon Dioxide 30 mEq/L (23-29); Chloride 106 mEq/L (98-107); Glucose 106 mg/dL (70-105); Magnesium 2.4 mg/dL (1.6-2.6); Osmolality,Calculated 299 (280-300); Potassium 4.2 mEq/L (3.5-5.1); Sodium 142 mEq/L (136-145); eGFR For African Americans > 60 (> 60); eGFR For Non-African Americans > 60 (> 60)
[2019-04-09] MEDS: Cholecalciferol (D-3) 1,000 UNIT (25MCG) TABLET PO SCH (10:06)
[2019-04-09] MEDS: Magnesium Oxide 400 MG TABLET PO SCH ×2 (10:06→22:37)
[2019-04-09] MEDS: Aspirin 325 MG TABLET PO SCH (10:06)
[2019-04-09] MEDS: Isosorbide MONOnitrate (24 HR) 60 MG TAB.ER.24H PO SCH (10:06)
[2019-04-09] MEDS: Metoprolol XL (24 HR) Succ 25 MG TAB.ER.24H PO SCH (10:06)
[2019-04-09] MEDS: Bumetanide 1 MG TABLET PO SCH (10:06)
[2019-04-09] MEDS: Gabapentin 300 MG CAPSULE PO SCH ×3 (10:06→22:37)
[2019-04-09] MEDS: Methyl Salicylate/Menthol 28 GM TUBE TP SCH ×2 (10:07→22:38)
[2019-04-09] MEDS: Budesonide/Formoterol 160/4.5 1 PUFF INH IH SCH ×2 (10:16→22:31)
[2019-04-09] MEDS: traZODone 50 MG TABLET PO SCH (22:43)
[2019-04-10] MEDS: Ascorbic Acid 500 MG TABLET PO SCH (06:14)
[2019-04-10] MEDS: *HR* OxyCODONE/APAP 5/325 TABLET PO PRN ×4 (06:14→22:18)
[2019-04-10] MEDS: Metoprolol XL (24 HR) Succ 25 MG TAB.ER.24H PO SCH (09:40)
[2019-04-10] MEDS: Bumetanide 1 MG TABLET PO SCH (09:40)
[2019-04-10] MEDS: Isosorbide MONOnitrate (24 HR) 60 MG TAB.ER.24H PO SCH (09:40)
[2019-04-10] MEDS: Cholecalciferol (D-3) 1,000 UNIT (25MCG) TABLET PO SCH (09:40)
[2019-04-10] MEDS: Magnesium Oxide 400 MG TABLET PO SCH ×2 (09:40→22:18)
[2019-04-10] MEDS: Gabapentin 300 MG CAPSULE PO SCH ×3 (09:40→22:18)
[2019-04-10] MEDS: Aspirin 325 MG TABLET PO SCH (09:40)
[2019-04-10] MEDS: ALPRAZolam 0.25 MG TABLET PO PRN ×3 (09:46→22:18)
[2019-04-10] MEDS: Methyl Salicylate/Menthol 28 GM TUBE TP SCH ×2 (09:48→22:19)
[2019-04-10] MEDS: Budesonide/Formoterol 160/4.5 1 PUFF INH IH SCH ×2 (10:28→22:18)
[2019-04-10] MEDS: MOM Conc 10 ML UD.LIQ PO SCH (14:54)
[2019-04-10] MEDS: traZODone 50 MG TABLET PO SCH (22:18)
[2019-04-11] MEDS: Ascorbic Acid 500 MG TABLET PO SCH (06:25)
[2019-04-11] MEDS: *HR* OxyCODONE/APAP 5/325 TABLET PO PRN ×4 (06:25→21:57)
[2019-04-11] MEDS: ALPRAZolam 0.25 MG TABLET PO PRN ×3 (06:25→21:57)
[2019-04-11] MEDS: Budesonide/Formoterol 160/4.5 1 PUFF INH IH SCH ×2 (09:18→22:04)
[2019-04-11] MEDS: Aspirin 325 MG TABLET PO SCH (10:08)
[2019-04-11] MEDS: Metoprolol XL (24 HR) Succ 25 MG TAB.ER.24H PO SCH (10:09)
[2019-04-11] MEDS: Cholecalciferol (D-3) 1,000 UNIT (25MCG) TABLET PO SCH (10:09)
[2019-04-11] MEDS: Magnesium Oxide 400 MG TABLET PO SCH ×2 (10:09→21:57)
[2019-04-11] MEDS: Gabapentin 300 MG CAPSULE PO SCH ×3 (10:09→21:57)
[2019-04-11] MEDS: Bumetanide 1 MG TABLET PO SCH (10:09)
[2019-04-11] MEDS: Isosorbide MONOnitrate (24 HR) 60 MG TAB.ER.24H PO SCH (10:09)
[2019-04-11] MEDS: Methyl Salicylate/Menthol 28 GM TUBE TP SCH ×2 (10:10→21:58)
--- NOTE | 2019-04-11 17:38 | Internal Med Progress Note ---
Date of Encounter: 04/11/19 Time of Encounter: :25 - Assessment and plan (1) Status post reverse total replacement of left shoulder Current Visit: Yes Status: Acute Assessment and plan: April 03. Continue PT and OT intervention with analgesics and therapy. April 11. Follow-up with surgeon tomorrow morning. She will be discharged home tomorrow afternoon and continue outpatient therapy in [place]. (2) Anemia Current Visit: No Status: Chronic Assessment and plan: April 03. Recheck labs in a.m. April 05. Hemoglobin improved to 9.2. Continue to monitor. April 08. Recheck labs in a.m. April 09. Hemoccult been stable at 9.2 on April 09. Qualifiers: Anemia type: unspecified type Qualified Code(s): D64.9 - Anemia, unspecified (3) Edema Current Visit: Yes Status: Acute Assessment and plan: April 03. Decreased. Continue Bumex. Recheck labs in a.m. April 05. BN peptide stable at 119. Continue present Rx. April 08. Resolved. Continue low-dose Bumex and monitor. Qualifiers: Edema type: unspecified Qualified Code(s): R60.9 - Edema, unspecified (4) Hypertension Current Visit: No Status: Chronic Assessment and plan: April 03. Blood pressure acceptable. Continue Toprol and Bumex. Qualifiers: Hypertension type: essential hypertension Qualified Code(s): I10 - Essential (primary) hypertension - Subjective Interval history: April 03. She has no new complaints. She feels she is making satisfactory progress in therapy. She states her new living location will not be available until April 13. April 05. She has no new complaints. April 08. She has no new complaints. April 11. She has no new complaints - Constitutional Vitals: Temp Pulse Resp BP Pulse Ox 97.7 F 80 18 101/59 95 04/11/19 06:32 04/11/19 06:32 04/11/19 09:19 04/11/19 06:32 04/11/19 09:19 Exam: She is sitting in a chair at bedside resting comfortably. Her affect is bright and cheerful. I reviewed her medications and past lab results. Internal Medicine: Result - Labs CBC & Chem 7: 04/09/19 06:25 04/09/19 06:25 Consult Discharge Plan - Plan Referrals: NONE,PCP [Primary Care Provider] - 1 week
[2019-04-11] MEDS: traZODone 50 MG TABLET PO SCH (21:57)
[2019-04-12] MEDS: *HR* OxyCODONE/APAP 5/325 TABLET PO PRN ×2 (04:02→07:53)
[2019-04-12] MEDS: ALPRAZolam 0.25 MG TABLET PO PRN ×2 (04:02→07:52)
[2019-04-12] MEDS: Ascorbic Acid 500 MG TABLET PO SCH (06:11)
[2019-04-12 07:19] VITALS: BP 119/54
[2019-04-12] MEDS: Gabapentin 300 MG CAPSULE PO SCH ×2 (07:49→15:04)
[2019-04-12] MEDS: Bumetanide 1 MG TABLET PO SCH (07:50)
[2019-04-12] MEDS: Magnesium Oxide 400 MG TABLET PO SCH (07:50)
[2019-04-12] MEDS: Cholecalciferol (D-3) 1,000 UNIT (25MCG) TABLET PO SCH (07:51)
[2019-04-12] MEDS: Isosorbide MONOnitrate (24 HR) 60 MG TAB.ER.24H PO SCH (07:52)
[2019-04-12] MEDS: Metoprolol XL (24 HR) Succ 25 MG TAB.ER.24H PO SCH (07:52)
[2019-04-12] MEDS: Aspirin 325 MG TABLET PO SCH (07:53)
[2019-04-12] MEDS: Budesonide/Formoterol 160/4.5 1 PUFF INH IH SCH (09:24)
--- NOTE | 2019-04-12 11:08 | Discharge Summary ---
Date of Encounter: 04/12/19 Time of Encounter: 10:50 - Discharge Diagnosis (1) Status post reverse total replacement of left shoulder Priority: Primary Status: Acute (2) Anemia Priority: Secondary Status: Chronic Qualifiers: Anemia type: unspecified type Qualified Code(s): D64.9 - Anemia, unspecified (3) Edema Priority: Secondary Status: Acute Qualifiers: Edema type: unspecified Qualified Code(s): R60.9 - Edema, unspecified (4) Hypertension Priority: Secondary Status: Chronic Qualifiers: Hypertension type: essential hypertension Qualified Code(s): I10 - Essential (primary) hypertension Hospital course: Ms. Kelly is a 69 year old female who returned from [facility] after undergoing left reverse total shoulder replacement. Her postop course was unremarkable and she returned to swing bed for ongoing rehabilitation therapy. She has fibromyalgia and DJD. 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 She denies gout or other bone joint or muscle disorders. She had been in [facility] swing bed March 03-March 22 following [facility] hospitalization for near syncope. She continued physical therapy and occupational therapy intervention. She had cryo-treatment to her left shoulder along with Lidoderm patch and BenGay topically. She made satisfactory improvement. She had a follow-up appointment with her orthopedist the morning of April 12. He felt she was stable for discharge home. She will follow with her PCP within 1 week and with her orthopedist as directed. She will continue outpatient therapy in [place]. - Time Spent with Patient Total time spent providing and/or coordinating discharge services: - Discharge Medications Prescriptions: New Lidocaine Patch [Lidoderm 5% patch] 1 each TP DAILY #30 adh..patch Magnesium Oxide [Mag-Ox] 400 mg PO BID #14 tablet Continued Cholecalciferol (D-3) [Vitamin D] 1,000 unit PO QAM Acetaminophen [Tylenol] 650 mg PO Q8H PRN PRN Reason: Pain Magnesium Oxide [Magnesium] 400 mg PO BID #60 tablet Ferrous Sulfate 325 mg PO 0630 tablet Ascorbic Acid [Vitamin C] 500 mg PO 0630 tablet Bumetanide [Bumex] 0.5 mg PO DAILY #15 tablet Buspirone HCl [Buspar] 10 mg PO BID #60 tablet Isosorbide MONOnitrate (24 HR) [Imdur] 60 mg PO DAILY #30 tab.er.24h Escitalopram [Lexapro] 20 mg PO DAILY #30 tablet Atorvastatin Calcium [Lipitor] 40 mg PO HS #60 tablet Memantine [Namenda] 5 mg PO DAILY #30 tablet Gabapentin [Neurontin] 900 mg PO TID 30 Days #270 capsule Nitroglycerin 0.4 mg SL Q5M PRN #25 tab.subl PRN Reason: Chest Pain Clopidogrel [Plavix] 75 mg PO DAILY #30 tablet Potassium Chloride 10 meq PO DAILY #30 tab.er.prt Omeprazole [PriLOSEC] 40 mg PO DAILY #30 capsule. Albuterol Sulfate [Proair Hfa] 2 puff IH Q4H #1 hfa.aer.ad Budesonide/Formoterol 160/4.5 [Symbicort 160/4.5] 2 puff IH BIDR #1 inh Metoprolol XL (24 HR) Succ [Toprol Xl] 25 mg PO DAILY #30 tab.er.24h ALPRAZolam [Xanax 0.25 MG Tablet] 0.25 mg PO Q4H PRN 3 Days #12 tablet PRN Reason: Anxiety Discontinued Aspirin [Adult Aspirin Regimen] 81 mg PO DAILY OxyCODONE/APAP 5/325 [Percocet 5/325 MG] 2 tab PO Q4HR PRN PRN Reason: Severe Pain Home Medications: Cholecalciferol (D-3) [Vitamin D] 1,000 unit PO QAM 09/08/18 [History] Magnesium Oxide [Magnesium] 400 mg PO BID #60 tablet 01/12/19 [Rx] Ascorbic Acid [Vitamin C] 500 mg PO 0630 tablet 03/28/19 [Rx] Ferrous Sulfate 325 mg PO 0630 tablet 03/28/19 [Rx] Acetaminophen [Tylenol] 650 mg PO Q8H PRN 03/29/19 [History] ALPRAZolam [Xanax 0.25 MG Tablet] 0.25 mg PO Q4H PRN 3 Days #12 tablet 04/12/19 [Rx] Albuterol Sulfate [Proair Hfa] 2 puff IH Q4H #1 hfa.aer.ad 04/12/19 [Rx] Atorvastatin Calcium [Lipitor] 40 mg PO HS #60 tablet 04/12/19 [Rx] Budesonide/Formoterol 160/4.5 [Symbicort 160/4.5] 2 puff IH BIDR #1 inh 04/12/19 [Rx] Bumetanide [Bumex] 0.5 mg PO DAILY #15 tablet 04/12/19 [Rx] Buspirone HCl [Buspar] 10 mg PO BID #60 tablet 04/12/19 [Rx] Clopidogrel [Plavix] 75 mg PO DAILY #30 tablet 04/12/19 [Rx] Escitalopram [Lexapro] 20 mg PO DAILY #30 tablet 04/12/19 [Rx] Gabapentin [Neurontin] 900 mg PO TID 30 Days #270 capsule 04/12/19 [Rx] Isosorbide MONOnitrate (24 HR) [Imdur] 60 mg PO DAILY #30 tab.er.24h 04/12/19 [Rx] Lidocaine Patch [Lidoderm 5% patch] 1 each TP DAILY #30 adh..patch 04/12/19 [Rx] Magnesium Oxide [Mag-Ox] 400 mg PO BID #14 tablet 04/12/19 [Rx] Memantine [Namenda] 5 mg PO DAILY #30 tablet 04/12/19 [Rx] Metoprolol XL (24 HR) Succ [Toprol Xl] 25 mg PO DAILY #30 tab.er.24h 04/12/19 [Rx] Nitroglycerin 0.4 mg SL Q5M PRN #25 tab.subl 04/12/19 [Rx] Omeprazole [PriLOSEC] 40 mg PO DAILY #30 capsule.dr 04/12/19 [Rx] Potassium Chloride 10 meq PO DAILY #30 tab.er.prt 04/12/19 [Rx] Allergies/Adverse Reactions: Allergy/AdvReac Type Severity Reaction Status Date / Time sumatriptan [From Imitrex] Allergy Swelling Verified 02/28/19 00:45 of Lip/Tongue/Throat venom-honey bee Allergy Swelling Verified 02/28/19 00:45 [bee venom (honey bee)] of Lip/Tongue/Throat morphine AdvReac Nausea Verified 02/28/19 00:45 Date of admission: 03/30/19 14:17 Primary care physician: PCP NONE Consults: 03/30/19 14:29 Consult to Leather Stripping Machine Operator [CONS] Routine Reason for SW Consult: discharge planning 03/30/19 19:10 Consult to Physical Therapy [CONS] Routine Comment: Evaluate, develop and implement POC Reason for Consult: weakness Does patient have active BEDREST order?: No Is patient medically & hemodynamically stable?: Yes Patient assessed for mobility or mobilized this visit?: No OT [Consult to Occupational Therapy] [CONS] Routine Comment: Evaluate, develop and implement POC Reason for Consult: weakness Does patient have active BEDREST order?: No Is patient medically & hemodynamically stable?: Yes Patient assessed for mobility or mobilized this visit?: No 04/01/19 09:00 Consult to Leather Stripping Machine Operator [CONS] Routine Reason for SW Consult: has been seen by SS on prior admission - Constitutional Vitals: Temp Pulse Resp BP Pulse Ox 97.9 F 79 17 119/54 97 04/11/19 18:46 04/12/19 07:14 04/12/19 07:14 04/12/19 07:14 04/12/19 07:14 - Patient Status Disposition: Home, Self-Care - Discharge Instructions Follow Up With: NONE,PCP [Primary Care Provider] - 1 week - Diet and Activity Activity: as per physical therapy Diet: advance to your usual diet
[2019-04-12] MEDS: MOM Conc 10 ML UD.LIQ PO SCH (15:04)
--- NOTE | 2019-04-15 15:49 | Physician Discharge Referral ---
Home Health/Hosp Referral Info Transfer to: Home Health Attending Provider: Isidro Provider in Charge Post Discharge: PCP - Diagnosis (1) Status post reverse total replacement of left shoulder Priority: Primary Status: Acute (2) Anemia Priority: Secondary Status: Chronic (3) Edema Priority: Secondary Status: Acute (4) Hypertension Priority: Secondary Status: Chronic - Respiratory Orders Smoking Cessation: Smoking cessation has been advised. For more information, call the [place] Tobacco Quit Line at 8-882-IGBE-NOW. - Diet/Nutrition Diet/Nutrition Orders: No Concentrated Sweets - Activity Activity Orders: Walker - Services Needed Following services are medically necessary services: Nursing, Home Health Aide, Physical Therapy, Occupational Therapy - Transfer Medications Prescriptions: Bumetanide [Bumex] 0.5 mg PO DAILY #15 tablet Buspirone HCl [Buspar] 10 mg PO BID #60 tablet Isosorbide MONOnitrate (24 HR) [Imdur] 60 mg PO DAILY #30 tab.er.24h Escitalopram [Lexapro] 20 mg PO DAILY #30 tablet Lidocaine Patch [Lidoderm 5% patch] 1 each TP DAILY #30 adh..patch Atorvastatin Calcium [Lipitor] 40 mg PO HS #60 tablet Magnesium Oxide [Mag-Ox] 400 mg PO BID #14 tablet Memantine [Namenda] 5 mg PO DAILY #30 tablet Gabapentin [Neurontin] 900 mg PO TID 30 Days #270 capsule Nitroglycerin 0.4 mg SL Q5M PRN #25 tab.subl PRN Reason: Chest Pain Clopidogrel [Plavix] 75 mg PO DAILY #30 tablet Potassium Chloride 10 meq PO DAILY #30 tab.er.prt Omeprazole [PriLOSEC] 40 mg PO DAILY #30 capsule. Albuterol Sulfate [Proair Hfa] 2 puff IH Q4H #1 hfa.aer.ad Budesonide/Formoterol 160/4.5 [Symbicort 160/4.5] 2 puff IH BIDR #1 inh Metoprolol XL (24 HR) Succ [Toprol Xl] 25 mg PO DAILY #30 tab.er.24h ALPRAZolam [Xanax 0.25 MG Tablet] 0.25 mg PO Q4H PRN 3 Days #12 tablet PRN Reason: Anxiety Home Medications: Cholecalciferol (D-3) [Vitamin D] 1,000 unit PO QAM 09/08/18 [History] Magnesium Oxide [Magnesium] 400 mg PO BID #60 tablet 01/12/19 [Rx] Ascorbic Acid [Vitamin C] 500 mg PO 0630 tablet 03/28/19 [Rx] Ferrous Sulfate 325 mg PO 0630 tablet 03/28/19 [Rx] Acetaminophen [Tylenol] 650 mg PO Q8H PRN 03/29/19 [History] ALPRAZolam [Xanax 0.25 MG Tablet] 0.25 mg PO Q4H PRN 3 Days #12 tablet 04/12/19 [Rx] Albuterol Sulfate [Proair Hfa] 2 puff IH Q4H #1 hfa.aer.ad 04/12/19 [Rx] Atorvastatin Calcium [Lipitor] 40 mg PO HS #60 tablet 04/12/19 [Rx] Budesonide/Formoterol 160/4.5 [Symbicort 160/4.5] 2 puff IH BIDR #1 inh 04/12/19 [Rx] Bumetanide [Bumex] 0.5 mg PO DAILY #15 tablet 04/12/19 [Rx] Buspirone HCl [Buspar] 10 mg PO BID #60 tablet 04/12/19 [Rx] Clopidogrel [Plavix] 75 mg PO DAILY #30 tablet 04/12/19 [Rx] Escitalopram [Lexapro] 20 mg PO DAILY #30 tablet 04/12/19 [Rx] Gabapentin [Neurontin] 900 mg PO TID 30 Days #270 capsule 04/12/19 [Rx] Isosorbide MONOnitrate (24 HR) [Imdur] 60 mg PO DAILY #30 tab.er.24h 04/12/19 [Rx] Lidocaine Patch [Lidoderm 5% patch] 1 each TP DAILY #30 adh..patch 04/12/19 [Rx] Magnesium Oxide [Mag-Ox] 400 mg PO BID #14 tablet 04/12/19 [Rx] Memantine [Namenda] 5 mg PO DAILY #30 tablet 04/12/19 [Rx] Metoprolol XL (24 HR) Succ [Toprol Xl] 25 mg PO DAILY #30 tab.er.24h 04/12/19 [Rx] Nitroglycerin 0.4 mg SL Q5M PRN #25 tab.subl 04/12/19 [Rx] Omeprazole [PriLOSEC] 40 mg PO DAILY #30 capsule. 04/12/19 [Rx] Potassium Chloride 10 meq PO DAILY #30 tab.er.prt 04/12/19 [Rx] Allergies/Adverse Reactions: Allergy/AdvReac Type Severity Reaction Status Date / Time sumatriptan [From Imitrex] Allergy Swelling Verified 02/28/19 00:45 of Lip/Tongue/Throat venom-honey bee Allergy Swelling Verified 02/28/19 00:45 [bee venom (honey bee)] of Lip/Tongue/Throat morphine AdvReac Nausea Verified 02/28/19 00:45 Certification: Further, I certify that my clinical findings support that this patient is homebound (i.e. absences from home require considerable and taxing effort and are for medical reasons or faith services or infrequently or short duration when for other reasons) because: Homebound Reason: Leaving home requires considerable and taxing effort due to condition (Impaired mobility secondary to deconditioning and left shoulder replacement.) Attestation: My signature below is to certify that this patient is under my care and that I, or nurse practitioner, or a physician's drafter assistant working with me, has a [id number] encounter with this patient.
== END 2019-04-12 16:35 | disposition home or self-care (01) | DRG 560 ==
LOC: INPPIK 14:17
PROVIDERS: ADMIT Internal Medicine; ATTEND Internal Medicine